=== PATIENT | female | born 1940 | race Caucasian/White ===

== ENCOUNTER 2021-04-26 16:00 | Inpatient (IN) | payer MEDICARE, OTHER ==
[~2021-04-26] VITALS: Ht 147.3 cm; Wt 39.9 kg
[~2021-04-26 16:00] MED LIST: ALEN70TA80 PO; ATEN100T PO; ATOR40TA; FURO20TA4 PO; ONCOUMADIN PO; Ondansetron Hcl/Pf IVP; SIME125C81 PO; SPIR50TA5 PO; WARF2TAB57 PO
--- NOTE | 2021-04-26 16:34 | NUR ---
patient came in to the er c/o "Abdominal Pain/nausea/less appetite xcouple days.+bloat/gases". On room air, breathing evenly and unlabored. Connected to the monitor and pulse ox. kept comfortable, will continue to monitor accordingly.
[2021-04-26 16:38] LABS: BILIRUBIN,URINE Negative (NEGATIVE); COLOR,URINE YELLOW (YELLOW); LEUKOCYTE ESTERASE ,URINE Negative (NEGATIVE); NITRITE, URINE Negative (NEGATIVE); PH,URINE 5.5 (5.0-8.0); PROTEIN,URINE Negative (NEGATIVE); UGLUCOSE Negative (NEGATIVE); UROBILINOGEN,URINE 0.2 EU/dL (0.2)
[2021-04-26 16:38] LABS: BASOPHILS # (AUTO) 0.1 K/uL (0.0-0.2); BASOPHILS % (AUTO) 1.5 % (0.0-2.0); EOSINOPHILS % (AUTO) 1.9 % (0.0-6.0); HEMATOCRIT 38 % (33-45); HEMOGLOBIN 12.6 g/dL (11.5-14.8); LYMPHOCYTES # (AUTO) 1.3 K/uL (0.8-4.8); LYMPHOCYTES % (AUTO) 21.7 % (20.0-44.0); MEAN CORPUSCULAR HGB CONC 34 g/dl (31.0-36.0); MEAN CORPUSCULAR VOLUME 97 fL (82-100); MONOCYTES # (AUTO) 0.4 K/uL (0.1-1.30); MONOCYTES % (AUTO) 6.3 % (2.0-12.0); NEUTROPHILS # (AUTO) 4.2 K/uL (1.8-8.9); NEUTROPHILS % (AUTO) 68.6 % (43.0-81.0); PLATELET COUNT (AUTO) 190 K/uL (150-450); RED BLOOD CELL COUNT(AUTO) 3.87 MIL/uL (4.0-5.2); WHITE BLOOD COUNT (AUTO) 6.1 K/uL (4.3-11.0)
[2021-04-26] MEDS ORDERED: ONDANSETRON HCL/PF 4 MG/2 ML VIAL ONE ×2 (16:48→18:03)
[2021-04-26 16:50] LABS: CARBON DIOXIDE 27 mmol/L (21-32); CHLORIDE 93 mmol/L (98-107); CREATININE 1.6 mg/dL (0.6-1.3); GLUCOSE 118 mg/dL (74-106); POTASSIUM 4.2 mmol/L (3.5-5.1); SODIUM SERUM 131 mmol/L (136-145); UREA NITROGEN, BLOOD 24 mg/dL (7-18)
[2021-04-26 16:53] LABS: BACTERIA,URINE Few /HPF (None Seen); SQUAMOUS EPITHELIAL CELL,UR 0-2 /HPF (None Seen); WBC,URINE 0-2 /HPF (0-3)
[2021-04-26] MEDS ORDERED: IV NS 0.9% 500 ML BAG IV ONE (17:00)
[2021-04-26] MEDS ORDERED: ONDANSETRON HCL/PF 4 MG/2 ML VIAL IVP ONE ×2 (17:00→18:00)
[2021-04-26 17:01] LABS: ALANINE AMINOTRANSFERASE 34 U/L (12-78); ALBUMIN 4.8 g/dL (3.4-5.0); ALKALINE PHOSPHATASE 104 U/L (46-116); ASPARTATE AMINOTRANSFERASE 38 U/L (15-37); BILIRUBIN,DIRECT 0.3 mg/dL (0.0-0.2); BILIRUBIN,TOTAL 1.4 mg/dL (0.2-1.0); LIPASE 443 U/L (73-393); TOTAL PROTEIN, SERUM 8.8 g/dL (6.4-8.2)
[2021-04-26] MEDS ORDERED: MORPHINE SULFATE INJ 2 MG/ML DISP.SYRIN IV ONE (18:00)
[2021-04-26] MEDS ORDERED: MORPHINE SULFATE INJ 4 MG/ML DISP.SYRIN ONE (18:03)
--- NOTE | 2021-04-26 18:11 | NUR ---
covid swab collected and sent to lab.
[2021-04-26] MEDS ORDERED: SPIR100T5 PO (18:21)
[2021-04-26] MEDS ORDERED: ATOR40TA PO (18:21)
[2021-04-26] MEDS ORDERED: POTA10CA43 PO (18:21)
[2021-04-26] MEDS ORDERED: ATEN100T PO (18:21)
[2021-04-26] MEDS ORDERED: BUME1TAB8 PO (18:21)
[2021-04-26] MEDS ORDERED: WARF-68 PO (18:21)
--- NOTE | 2021-04-26 19:34 | NUR ---
called [employer]. chemical instrumentation officer dr levine
--- NOTE | 2021-04-26 19:42 | NUR ---
HOSPITALIST SPEAKING WITH DR. RIZZO.
--- NOTE | 2021-04-26 19:44 | NUR ---
CALLED FOR TELE BED.
--- NOTE | 2021-04-26 20:50 | NUR ---
REPORT GIVEN TO CHARGE NURSE 3 [facility]
[2021-04-26] MEDS ORDERED: ACETAMINOPHEN 325 MG TABLET PO PRN (21:00)
[2021-04-26] MEDS ORDERED: MAG HYDROX/AL HYDROX/SIMETH 30 ML UDC PO PRN (21:00)
[2021-04-26] MEDS ORDERED: Z GUARD REMEDY 2 OZ OINT TP PRN (21:00)
[2021-04-26] MEDS ORDERED: ZOLPIDEM TARTRATE 5 MG TABLET PO PRN (21:00)
[2021-04-26 22:00] VITALS: BP 123/74
[2021-04-26 22:15] VITALS: BP 112/57
--- NOTE | 2021-04-26 22:15 | NUR ---
PETAL CUTTERCOOKIE BREAKER NOTE PT TRANSPORTED VIA GURNEY TO UNIT AT THIS TIME. PT ADMITTED TO TELE UNDER SUSANNAH MCGARRY MANAGER LINUX FOR ADMITTING DX OF INTRACTABLE PAIN/NAUSEA, ABNORMAL EKG. A/O X4, DJIBOUTIAN-SPEAKING. PT IS AMBULATORY WITH FWW. PT IS STABLE ON ROOM AIR. NO SOB OR S/S OF RESPIRATORY DISTRESS NOTED. PT NOTED WITH PACEMAKER. TELE MONITOR READING AFIB, V-PACING 67. PT HAS NO C/O PAIN OR DISCOMFORT AT THIS TIME. IV ACCESS IN RIGHT AC #18, INTACT AND PATENT. PT ORIENTED TO STAFF, ROOM, AND UNIT. SAFETY MEASURES MAINTAINED. IN LOWEST LOCKED POSITION, HOB ELEVATED, SIDE RAILS UP X2. CALL LIGHT AND TABLE WITHIN REACH. WILL CONTINUE TO MONITOR.
--- NOTE | 2021-04-26 22:15 | NUR ---
PATIENT TRANSFERRED UNDER ACLS
[2021-04-26] MEDS: MORPHINE SULFATE INJ 2 MG/ML DISP.SYRIN IV PRN (23:18)
--- NOTE | 2021-04-26 23:18 | NUR ---
RN PAIN PT C/O MIDDLE/UPPER ABDOMINAL PAIN, RATED 9/10 ON 0-10 PAIN SCALE. VSS STABLE. PER PT REQUEST, ADMINISTERED MORPHINE SULFATE 2 MG IV Q4H PRN FOR PAIN. WILL CONTINUE TO MONITOR.
[2021-04-27] VITALS: BP 112/57
[2021-04-27] MEDS: ONDANSETRON HCL/PF 4 MG/2 ML VIAL IVP PRN ×2 (01:05→20:34)
--- NOTE | 2021-04-27 01:05 | NUR ---
RN NOTE PT C/O NAUSEA. NO EMESIS NOTED. PER PT REQUEST, ADMINISTERED ZOFRAN 4 MG IVP Q6H FOR NAUSEA/VOMITING. WILL REASSESS PT IN 30 MINUTES.
[2021-04-27 04:00] VITALS: BP 105/52
--- NOTE | 2021-04-27 06:42 | NUR ---
HYDROMETALLURGICAL ENGINEER CLOSING NOTE PT IS AWAKE IN BED. A/O X4, CHINESE-SPEAKING. PT IS AMBULATORY WITH FWW. PT IS STABLE ON ROOM AIR. NO SOB OR S/S OF RESPIRATORY DISTRESS NOTED. PT NOTED WITH PACEMAKER. TELE MONITOR READING AFIB, V-PACING 68. PT HAS NO C/O PAIN OR DISCOMFORT AT THIS TIME. IV ACCESS IS INTACT, PATENT, AND FLUSHING WELL. ALL NEEDS HAVE BEEN MET. PAIN MANAGEMENT ADMINISTERED PER ORDER. SAFETY PRECAUTIONS MAINTAINED AT ALL TIMES. BED IN LOWEST LOCKED POSITION, HOB ELEVATED, SIDE RAILS UP X2. CALL LIGHT AND TABLE WITHIN REACH. WILL ENDORSE TO ONCOMING NURSE FOR CHRISTIANO.
[2021-04-27 07:18] LABS: BASOPHILS # (AUTO) 0.1 K/uL (0.0-0.2); BASOPHILS % (AUTO) 0.8 % (0.0-2.0); EOSINOPHILS % (AUTO) 2.8 % (0.0-6.0); HEMATOCRIT 35 % (33-45); HEMOGLOBIN 11.9 g/dL (11.5-14.8); LYMPHOCYTES # (AUTO) 0.9 K/uL (0.8-4.8); LYMPHOCYTES % (AUTO) 14.3 % (20.0-44.0); MEAN CORPUSCULAR HGB CONC 34 g/dl (31.0-36.0); MEAN CORPUSCULAR VOLUME 97 fL (82-100); MONOCYTES # (AUTO) 0.5 K/uL (0.1-1.30); MONOCYTES % (AUTO) 7.9 % (2.0-12.0); NEUTROPHILS # (AUTO) 4.6 K/uL (1.8-8.9); NEUTROPHILS % (AUTO) 74.2 % (43.0-81.0); PLATELET COUNT (AUTO) 157 K/uL (150-450); WHITE BLOOD COUNT (AUTO) 6.2 K/uL (4.3-11.0)
[2021-04-27 07:46] LABS: CALCIUM, SERUM 9.4 mg/dL (8.5-10.1); CARBON DIOXIDE 32 mmol/L (21-32); CHLORIDE 102 mmol/L (98-107); CHOLESTEROL 115 mg/dL (<200); GLUCOSE 106 mg/dL (74-106); HDL CHOLESTEROL 51 mg/dL (40-60); LDL 51 mg/dL (0-99); MAGNESIUM 2.2 mg/dL (1.8-2.4); POTASSIUM 4.2 mmol/L (3.5-5.1); SODIUM SERUM 139 mmol/L (136-145); TRIGLYCERIDES 53 mg/dL (30-150); UREA NITROGEN, BLOOD 26 mg/dL (7-18)
--- NOTE | 2021-04-27 07:55 | NUR ---
TELE/RN OPENING NOTES RECEIVED PATIENT ON BED AWAKE, ALERT AND ORIENTED X3. PATIENT IN ROOM AIR SATURATING WELL. PATIENT IN NO APPARENT RESPIRATORY DISTRESS NOTED. NO COMPLAINED OF PAIN NOTED AT THIS TIME. TELE MONITOR READING V PACING 60 BPM. WILL CONTINUE TO MONITOR.
[2021-04-27] MEDS: PANTOPRAZOLE 40 MG TABLET.DR PO SCH (08:34)
[2021-04-27] MEDS: ASPIRIN 81 MG TAB.CHEW PO SCH (08:51)
[2021-04-27] MEDS: ATENOLOL 50 MG TABLET PO SCH (08:52)
[2021-04-27] MEDS: SPIRONOLACTONE 25 MG TABLET PO SCH (08:52)
[2021-04-27] MEDS ORDERED: SPIRONOLACTONE 50 MG TABLET PO SCH (09:00)
[2021-04-27 09:02] VITALS: BP 116/54
[2021-04-27 09:43] LABS: CREATININE 1.8 mg/dL (0.6-1.3)
[2021-04-27 10:41] LABS: LIPASE 3497 U/L (73-393)
[2021-04-27] MEDS ORDERED: IV LR 1000 ML 1,000 ML IV ONE (11:30)
[2021-04-27 12:00] VITALS: BP 116/56
[2021-04-27 12:17] LABS: C-REACTIVE PROTEIN < 0.2 mg/dL (0.0-0.9)
[2021-04-27 16:10] VITALS: BP 100/50
[2021-04-27] MEDS: WARFARIN SODIUM 2 MG TABLET PO SCH (16:20)
--- NOTE | 2021-04-27 18:59 | NUR ---
TELE/RN OPENING NOTES PATIENT IS ON BED ALERT AND ORIENTED X 3-4. PATIENT IN ROOM AIR SAO2 96% SATURATING WELL. PATIENT IN NO APPARENT RESPIRATORY DISTRESS NOTED. NO COMPLAINED OF PAIN NOTED AT THIS TIME. SEEN AND EXAMINED BY MD WITH ORDERS MADE AND CARRIED OUT. ALL DUE MEDICATIONS WAS GIVEN. IV ACCESS AT RIGHT AC # 18g PATENT AND INTACT. TELE MONITOR READING SINUS RHYTHM WITH V PACING 71BPM. SAFETY PRECAUTIONS WAS IN PLACED. BED IN LOWEST POSITION AND LOCKED. SIDE RAILS UP X2. WILL ENDORSED TO ASSOCIATE SOFTWARE APPLICATION ENGINEER FOR CHRISTIANO. Addendum: 04/27/21 at 1902 by CHRISTINE SAAB RN ERROR
--- NOTE | 2021-04-27 19:02 | NUR ---
TELE/RN CLOSING NOTES PATIENT IS ON BED ALERT AND ORIENTED X 3-4. PATIENT IN ROOM AIR SAO2 96% SATURATING WELL. PATIENT IN NO APPARENT RESPIRATORY DISTRESS NOTED. NO COMPLAINED OF PAIN NOTED AT THIS TIME. SEEN AND EXAMINED BY MD WITH ORDERS MADE AND CARRIED OUT. ALL DUE MEDICATIONS WAS GIVEN. IV ACCESS AT RIGHT AC # 18g PATENT AND INTACT. SAFETY PRECAUTIONS WAS IN PLACED. BED IN LOWEST POSITION AND LOCKED. SIDE RAILS UP X2. WILL ENDORSED TO BULK COOLERS INSTALLER FOR CHRISTIANO.
--- NOTE | 2021-04-27 19:30 | NUR ---
JV BASEBALL COACH OPENING NOTES RECEIVED PATIENT IN BED, AWAKE, A&O X 4, SWISS SPEAKING. PATIENT IN ROOM AIR SATURATING WELL AT 98%. PATIENT IN NO APPARENT RESPIRATORY DISTRESS NOTED. NO COMPLAINTS OF PAIN AT THIS TIME. ON TELE MONITOR SHOWING V PACING HR AT 68. SALINE LOCK ON RAC G#18, PATENT AND FLUSHES WELL, NO REDNESS NOTED. SAFETY PRECAUTIONS WAS OBSERVED: BED IN LOWEST LOCKED POSITION, SIDE RAILS UP X2, CALL LIGHT WITHIN EASY REACH. WILL CONTINUE TO MONITOR PATIENT'S CURRENT STATUS
[2021-04-27 20:00] VITALS: BP_SYST 98; BP_DIAS 49; BP_DIAS 51
[2021-04-27] MEDS: MORPHINE SULFATE INJ 2 MG/ML DISP.SYRIN IV PRN (20:31)
--- NOTE | 2021-04-27 20:31 | NUR ---
PAIN MANAGEMENT PATIENT HAS C/O PAIN ON MEDIAL ABDOMEN RADIATING TO BACK WITH PAIN SCALE OF 8/10. DUE PRN MORPHINE GIVEN ORDERED. WILL CONTINUE TO MONITOR PATIENT'S PAIN STATUS.
[2021-04-27] MEDS: ATORVASTATIN 40 MG TABLET PO SCH (21:10)
[2021-04-28] VITALS: BP_SYST 111; BP_DIAS 45; BP_DIAS 51
[2021-04-28] MEDS: ONDANSETRON HCL/PF 4 MG/2 ML VIAL IVP PRN ×3 (03:03→19:55)
[2021-04-28] MEDS: MORPHINE SULFATE INJ 2 MG/ML DISP.SYRIN IV PRN ×2 (03:04→19:55)
--- NOTE | 2021-04-28 03:04 | NUR ---
PAIN MANAGEMENT PATIENT HAS C/O PAIN ON MEDIAL ABDOMEN RADIATING TO BACK WITH PAIN SCALE OF 8/10. DUE PRN MORPHINE GIVEN ORDERED. WILL CONTINUE TO MONITOR PATIENT'S PAIN STATUS
[2021-04-28 04:00] VITALS: BP 124/58
--- NOTE | 2021-04-28 06:38 | NUR ---
CAR DRIVER CLOSING NOTES PATIENT IN BED, AWAKE, A&O X 4, PATIENT IN ROOM AIR TOLERATING WELL. PATIENT IN NO APPARENT RESPIRATORY DISTRESS NOTED. NO COMPLAINTS OF PAIN AT THIS TIME. ON TELE MONITOR SHOWING V PACING HR AT 63. SALINE LOCK ON RAC G#18, PATENT AND FLUSHES WELL, NO REDNESS NOTED. SAFETY PRECAUTIONS WAS OBSERVED: BED IN LOWEST LOCKED POSITION, SIDE RAILS UP X2, CALL LIGHT WITHIN EASY REACH. ALL NEEDS ATTENDED AND MET. WILL ENDORSE TO MORNING NURSE FOR CHRISTIANO.
--- NOTE | 2021-04-28 07:43 | NUR ---
DIRECTOR NURSES' REGISTRY OPENING NOTES RECEIVED PATIENT IN BED, ASLEEP. PATIENT ON ROOM AIR; BREATHING EVEN AND UNLABORED, NO SOB PRESENT AT THIS TIME. TELE MONITOR WITH A CURRENT READING OF SR 75 BPM. NO S/S OF PAIN SUCH FACIAL GRIMACING, MOANING OR GUARDING NOTED. RAC G #18 IV ACCESS PRESENT AND INTACT, SL. SAFETY PRECAUTIONS IN PLACE; BED IN LOW POSITION AND LOCKED, RAILS UPX2, CALL LIGHT WITHIN REACH. WILL CONTINUE TO MONITOR PATIENT.
[2021-04-28] MEDS: ASPIRIN 81 MG TAB.CHEW PO SCH (08:16)
[2021-04-28] MEDS: SPIRONOLACTONE 25 MG TABLET PO SCH (08:17)
[2021-04-28] MEDS: PANTOPRAZOLE 40 MG TABLET.DR PO SCH (08:19)
[2021-04-28 08:25] VITALS: BP 113/62
[2021-04-28] MEDS ORDERED: MORPHINE SULFATE INJ 2 MG/ML DISP.SYRIN IV PRN ×2 (09:00→11:30)
[2021-04-28 09:06] LABS: CALCIUM, SERUM 9.4 mg/dL (8.5-10.1); CARBON DIOXIDE 27 mmol/L (21-32); CHLORIDE 101 mmol/L (98-107); CREATININE 1.6 mg/dL (0.6-1.3); GLUCOSE 137 mg/dL (74-106); POTASSIUM 4.4 mmol/L (3.5-5.1); SODIUM SERUM 136 mmol/L (136-145); UREA NITROGEN, BLOOD 25 mg/dL (7-18)
[2021-04-28 09:12] LABS: ALANINE AMINOTRANSFERASE 35 U/L (12-78); ALKALINE PHOSPHATASE 89 U/L (46-116); ASPARTATE AMINOTRANSFERASE 37 U/L (15-37); BILIRUBIN,TOTAL 1.2 mg/dL (0.2-1.0); LIPASE 480 U/L (73-393); TOTAL PROTEIN, SERUM 7.5 g/dL (6.4-8.2)
[2021-04-28] MEDS: IV LR 1000 ML 1,000 ML IV PRN ×2 (09:23→18:02)
[2021-04-28] MEDS: ATENOLOL 50 MG TABLET PO SCH (09:53)
--- NOTE | 2021-04-28 11:29 | NUR ---
BLIND EYELETTER NOTES PATIENT COMPLAINING OF PAIN 9/10 IN HER UPPER ABDOMEN; REQUESTING PRN PAIN MEDICATION. PRN MORPHINE IV ADMINISTERED. WILL REASSESS. PATIENT ALSO REQUESTED PRN ZOFRAN TO BE GIVEN WITH MORPHINE BECAUSE MORPHINE MAKES HER NAUSEATED.
[2021-04-28 12:08] VITALS: BP 116/62
[2021-04-28] MEDS: SIMETHICONE 80 MG TAB.CHEW PO PRN (15:59)
--- NOTE | 2021-04-28 16:01 | NUR ---
ASSOCIATE CHIEF NURSE NOTES PATIENT COMPLAINING OF GAS. PRN MYLICON CHEW TAB ADMINISTERED. WILL REASSESS.
[2021-04-28 16:19] VITALS: BP 118/58
[2021-04-28] MEDS: WARFARIN SODIUM 2 MG TABLET PO SCH (17:00)
--- NOTE | 2021-04-28 17:20 | NUR ---
PASSENGER ELEVATOR OPERATOR NOTES 1700 COUMADIN 2 MG HELD DUE TO INCREASED INR OF 3.59 AND PT OF 33.9 CHARGE NURSE NOTIFIED
--- NOTE | 2021-04-28 18:32 | NUR ---
MUD CLEANER OPERATOR CLOSING NOTES PATIENT REMAINS IN BED, AWAKE, A/O X4. PATIENT ON ROOM AIR; BREATHING EVEN AND UNLABORED, NO SOB PRESENT AT THIS TIME. TELE MONITOR WITH A CURRENT READING OF SR 64 BPM. PAIN TREATED WITH PRN PAIN MEDICATION. RAC G #18 IV ACCESS PRESENT AND INTACT INFUSING LR @ 125MLS/HR. ALL NEEDS ATTENDED DURING THE DAY. SAFETY PRECAUTIONS IN PLACE; BED IN LOW POSITION AND LOCKED, RAILS UPX2, CALL LIGHT WITHIN REACH. WILL ENDORSE NO EDUCATIONAL ADMINISTRATOR NURSE.
--- NOTE | 2021-04-28 19:55 | NUR ---
UPTWIST SPINNER OPENING NOTE PATIENT A/OX3; ABLE TO MAKE NEEDS KNOWN ON ROOM AIR TOLERATING WELL WITH NO SOB. EXTERNAL HEALTH SCIENCE SPECIALIST READS NSR AT 68. RAC #18G LR @ 125 HR/ML; PATENT AND INTACT. PT C/O 06/20 ABDOMINAL PAIN AND NAUSEA. ADMINISTERED MORPHINE AND ZOFRAN ORDERED. WILL CONTINUE TO REASSESS FOR PAIN/ N/V IN 30 MINUTES. SAFETY MEASURES IN PLACE: BED IN LOWEST LOCKED POSITION, SIDE RAILS UPX2, CALL LIGHT WITHIN EASY REACH. PATIENT IN STABLE CONDITION. WILL CONTINUE PLAN OF CARE.
[2021-04-28 20:00] VITALS: BP 137/49
[2021-04-28] MEDS: ATORVASTATIN 40 MG TABLET PO SCH (22:05)
[2021-04-29] VITALS: BP 108/45
[2021-04-29] MEDS: MORPHINE SULFATE INJ 2 MG/ML DISP.SYRIN IV PRN ×3 (01:48→20:36)
[2021-04-29] MEDS: IV LR 1000 ML 1,000 ML IV PRN ×2 (01:52→17:56)
[2021-04-29] MEDS: ONDANSETRON HCL/PF 4 MG/2 ML VIAL IVP PRN ×3 (01:58→20:36)
--- NOTE | 2021-04-29 01:58 | NUR ---
PERMANENT WAVER NOTE - PAIN / NAUSEA PT C/O 06/20 ABDOMINAL PAIN AND NAUSEA. ADMINISTERED MORPHINE AND ZOFRAN ORDERED. WILL CONTINUE TO REASSESS FOR PAIN/ N/V IN 30 MINUTES.
[2021-04-29 04:00] VITALS: BP 118/49
[2021-04-29 06:36] LABS: ALBUMIN 3.2 g/dL (3.4-5.0); BILIRUBIN,TOTAL 1.2 mg/dL (0.2-1.0); CALCIUM, SERUM 8.9 mg/dL (8.5-10.1); CREATININE 1.3 mg/dL (0.6-1.3); POTASSIUM 4.3 mmol/L (3.5-5.1); TOTAL PROTEIN, SERUM 6.4 g/dL (6.4-8.2)
--- NOTE | 2021-04-29 06:53 | NUR ---
FOREST MANAGEMENT PROFESSOR CLOSING NOTE PATIENT A/OX4; ABLE TO MAKE NEEDS KNOWN ON ROOM AIR TOLERATING WELL WITH NO SOB. EXTERNAL CHEESE WEIGHER READS NSR AT 63. RAC #18G LR @ 125 HR/ML; PATENT AND INTACT. SAFETY MEASURES IN PLACE: BED IN LOWEST LOCKED POSITION, SIDE RAILS UPX2, CALL LIGHT WITHIN EASY REACH. PATIENT IN STABLE CONDITION, ALL NEEDS MET. WILL ENDORSE PLAN OF CARE TO ONCOMING MORNING RN.
[2021-04-29 08:00] VITALS: BP 114/57
[2021-04-29] MEDS: SPIRONOLACTONE 25 MG TABLET PO SCH (09:00)
[2021-04-29] MEDS: ATENOLOL 50 MG TABLET PO SCH (09:00)
[2021-04-29] MEDS: PANTOPRAZOLE 40 MG TABLET.DR PO SCH (09:38)
[2021-04-29] MEDS: ASPIRIN 81 MG TAB.CHEW PO SCH (09:38)
--- NOTE | 2021-04-29 11:30 | NUR ---
IV LEAKING,REMOVED AND SEVERAL ATTEMPTS AT RESTART.NOW WITH #[address] FOREARM.
[2021-04-29 16:00] VITALS: BP 134/66
[2021-04-29] MEDS: WARFARIN SODIUM 2 MG TABLET PO SCH (17:00)
--- NOTE | 2021-04-29 17:45 | NUR ---
COUMADIN HELD ELEVATED INR.
--- NOTE | 2021-04-29 19:51 | NUR ---
CONVERTER SUPERVISOR OPENING NOTE PATIENT A/OX3; ABLE TO MAKE NEEDS KNOWN ON ROOM AIR TOLERATING WELL WITH NO SOB. EXTERNAL DISTRIBUTION COORDINATOR READS NSR AT 68. LFA #22G LR @ 125 HR/ML; PATENT AND INTACT. SAFETY MEASURES IN PLACE: BED IN LOWEST LOCKED POSITION, SIDE RAILS UPX2, CALL LIGHT WITHIN EASY REACH. PATIENT IN STABLE CONDITION. WILL CONTINUE PLAN OF CARE.
[2021-04-29 20:29] VITALS: BP 129/75
--- NOTE | 2021-04-29 20:36 | NUR ---
MS RN NOTE - PAIN / NAUSEA PT C/O 06/20 ABDOMINAL PAIN AND NAUSEA. ADMINISTERED MORPHINE AND ZOFRAN ORDERED. WILL CONTINUE TO REASSESS FOR PAIN/ N/V IN 30 MINUTES
[2021-04-29] MEDS: ATORVASTATIN 40 MG TABLET PO SCH (21:35)
--- NOTE | 2021-04-29 23:23 | NUR ---
MS RN NOTE - NAUSEA PT C/O NAUSEA AND GAS. ADMINISTERED MAALOX ORDERED. WILL CONTINUE TO REASSESS FOR N/V IN 30 MINUTES
[2021-04-30] MEDS: IV LR 1000 ML 1,000 ML IV PRN (02:47)
[2021-04-30] MEDS: MORPHINE SULFATE INJ 2 MG/ML DISP.SYRIN IV PRN ×2 (02:55→10:22)
[2021-04-30] MEDS: ONDANSETRON HCL/PF 4 MG/2 ML VIAL IVP PRN ×2 (02:55→10:14)
--- NOTE | 2021-04-30 02:55 | NUR ---
MS RN NOTE - PAIN / NAUSEA PT C/O 07/20 ABDOMINAL PAIN AND NAUSEA. ADMINISTERED MORPHINE AND ZOFRAN ORDERED. WILL CONTINUE TO REASSESS FOR PAIN/ N/V IN 30 MINUTES
[2021-04-30] MEDS: SIMETHICONE 80 MG TAB.CHEW PO PRN (05:52)
[2021-04-30 06:32] LABS: BASOPHILS % (AUTO) 0.7 % (0.0-2.0); EOSINOPHILS % (AUTO) 1.8 % (0.0-6.0); HEMATOCRIT 30 % (33-45); HEMOGLOBIN 10.1 g/dL (11.5-14.8); LYMPHOCYTES # (AUTO) 0.6 K/uL (0.8-4.8); LYMPHOCYTES % (AUTO) 8.8 % (20.0-44.0); MEAN CORPUSCULAR HGB CONC 34 g/dl (31.0-36.0); MEAN CORPUSCULAR VOLUME 99 fL (82-100); MONOCYTES # (AUTO) 0.5 K/uL (0.1-1.30); MONOCYTES % (AUTO) 7.5 % (2.0-12.0); NEUTROPHILS # (AUTO) 5.3 K/uL (1.8-8.9); NEUTROPHILS % (AUTO) 81.2 % (43.0-81.0); PLATELET COUNT (AUTO) 103 K/uL (150-450); WHITE BLOOD COUNT (AUTO) 6.5 K/uL (4.3-11.0)
--- NOTE | 2021-04-30 06:54 | NUR ---
MS RN CLOSING NOTE PATIENT A/OX4; ABLE TO MAKE NEEDS KNOWN ON ROOM AIR TOLERATING WELL WITH NO SOB. LFA #22G LR @ 125 HR/ML; PATENT AND INTACT. SAFETY MEASURES IN PLACE: BED IN LOWEST LOCKED POSITION, SIDE RAILS UPX2, CALL LIGHT WITHIN EASY REACH. PATIENT IN STABLE CONDITION. WILL ENDORSE PLAN OF CARE TO ONCOMING MORNING RN
[2021-04-30 07:32] LABS: BILIRUBIN,DIRECT 0.3 mg/dL (0.0-0.2); BILIRUBIN,TOTAL 1.4 mg/dL (0.2-1.0); CALCIUM, SERUM 8.8 mg/dL (8.5-10.1); CREATININE 1.1 mg/dL (0.6-1.3); MAGNESIUM 1.8 mg/dL (1.8-2.4); POTASSIUM 4.3 mmol/L (3.5-5.1); TOTAL PROTEIN, SERUM 6.3 g/dL (6.4-8.2)
[2021-04-30 08:00] VITALS: BP 131/44
[2021-04-30] MEDS: SPIRONOLACTONE 25 MG TABLET PO SCH (09:15)
[2021-04-30] MEDS: PANTOPRAZOLE 40 MG TABLET.DR PO SCH (09:15)
[2021-04-30] MEDS: ASPIRIN 81 MG TAB.CHEW PO SCH (09:15)
[2021-04-30] MEDS: ATENOLOL 50 MG TABLET PO SCH (09:16)
[2021-04-30] MEDS ORDERED: NA PHOS,M-B/NA PHOS,DI-BA 1 EA ENEMA RC ONE ×2 (11:30→14:00)
[2021-04-30] MEDS ORDERED: MAGNESIUM HYDROXIDE 30 ML UDC PO ONE ×2 (11:30→14:00)
--- NOTE | 2021-04-30 11:30 | NUR ---
GIVEN MORPHINE AND ZOFRAN FOR PAIN AND NAUSEA.
--- NOTE | 2021-04-30 12:30 | NUR ---
DR. BURGESS IN AND DC ORDER GIVEN.
--- NOTE | 2021-04-30 13:00 | NUR ---
TEXTING DR. BURGESS REGARDING WRETCHING AND BRINGING UP LARGE AMT. OF MUCUS.
--- NOTE | 2021-04-30 15:30 | NUR ---
DR PRICE IN AND CALLING DR. BURGESS REGARDING PT. STATUS.
--- NOTE | 2021-04-30 15:30 | NUR ---
GIVEN FLEETS ENEMA AND MOM AFTER RECEIPT OF ORDER FROM DR. BURGESS.HAD HUGE BM.
[2021-04-30 16:00] VITALS: BP 154/90
[2021-04-30] MEDS ORDERED: WARFARIN SODIUM 2 MG TABLET PO SCH (17:00)
--- NOTE | 2021-04-30 17:00 | NUR ---
REPORT CALLED TO FACILITY.
--- NOTE | 2021-04-30 17:35 | NUR ---
REPORT TO DRIVERS,ALL PAPERS SIGNED.HEP LOCK OUT.TAKEN TO FACILITY VIA AMBULANCE.
== END 2021-04-30 17:56 | DRG 438 ==
LOC: ER 16:03 → MERGE 20:42 → TELE 20:42 → MED 04-29 09:50
PROVIDERS: ADMIT Nurse Practitioner Family; ATTEND Internal Medicine
DX: K85.90 Acute pancreatitis without necrosis or infection, unspecified (principal); N17.0 Acute kidney failure with tubular necrosis; I50.20 Unspecified systolic (congestive) heart failure; E87.1 Hypo-osmolality and hyponatremia; I13.0 Hypertensive heart and chronic kidney disease with heart failure and stage 1 through stage 4 chronic kidney disease, or unspecified chronic kidney disease; K55.1 Chronic vascular disorders of intestine; K86.1 Other chronic pancreatitis; Z20.822 Contact with and (suspected) exposure to COVID-19; E86.9 Volume depletion, unspecified; N18.9 Chronic kidney disease, unspecified; M11.29 Other chondrocalcinosis, multiple sites; J84.10 Pulmonary fibrosis, unspecified; D49.0 Neoplasm of unspecified behavior of digestive system; I25.10 Atherosclerotic heart disease of native coronary artery without angina pectoris; K74.60 Unspecified cirrhosis of liver; Z90.49 Acquired absence of other specified parts of digestive tract; N28.1 Cyst of kidney, acquired; Z79.01 Long term (current) use of anticoagulants; Z95.2 Presence of prosthetic heart valve; Z95.0 Presence of cardiac pacemaker; Z90.710 Acquired absence of both cervix and uterus; B19.20 Unspecified viral hepatitis C without hepatic coma
CPT/HCPCS: 36415; 71045-TC; 76700-TC; 80048-TC; 80053-TC; 80061-TC; 80076-TC; 81001; 83690-TC; 83735-TC; 83880; 84100-TC; 84484-TC; 85025-TC; 85610-TC; 85730-TC; 86140-TC; 87081-TC; 93307-TC; C9803; G0378; J2270; J2405; J7040; J7120

== ENCOUNTER 2022-02-15 17:12 | Inpatient (IN) | payer MEDICARE, OTHER ==
[~2022-02-15] VITALS: Ht 147.3 cm; Wt 37.2 kg
[~2022-02-15 17:12] MED LIST changes: -ATOR40TA; +ATOR40TA PO; +BUME1TAB8 PO; +POTA10CA43 PO; +SPIR100T5 PO; +WARF-68 PO
--- NOTE | 2022-02-15 17:15 | NUR ---
BIB GRAND DAUGHTER C/O ABDOMINAL PAIN AND CONSTIPATION X 3 DAYS. PATIENT IS ATTACHED TO BUTTON BUTTONHOLE MARKER. PLACED COMFORTABLY IN BED. VITALS CHECKED AND WILL CONTINUE TO MONITOR
[2022-02-15] MEDS ORDERED: WARF-68 PO (17:24)
--- NOTE | 2022-02-15 17:30 | NUR ---
IV CANNULA G18 INSERTED ON RIGHT AC. BLOOD DRAWN AND SENT TO LAB
--- NOTE | 2022-02-15 17:41 | NUR ---
EKG DONE. STRIP ATTACHED TO CHART
--- NOTE | 2022-02-15 17:47 | NUR ---
COVID SWAB DONE AND SENT TO LAB
[2022-02-15 17:56] LABS: BASOPHILS # (AUTO) 0.1 K/uL (0.0-0.2); BASOPHILS % (AUTO) 0.7 % (0.0-2.0); EOSINOPHILS % (AUTO) 2.2 % (0.0-6.0); HEMATOCRIT 36 % (33-45); HEMOGLOBIN 12.4 g/dL (11.5-14.8); LYMPHOCYTES # (AUTO) 1.1 K/uL (0.8-4.8); MEAN CORPUSCULAR HGB CONC 34 g/dl (31.0-36.0); MEAN CORPUSCULAR VOLUME 95 fL (82-100); MONOCYTES # (AUTO) 0.9 K/uL (0.1-1.30); MONOCYTES % (AUTO) 7.5 % (2.0-12.0); NEUTROPHILS # (AUTO) 9.9 K/uL (1.8-8.9); NEUTROPHILS % (AUTO) 80.6 % (43.0-81.0); PLATELET COUNT (AUTO) 179 K/uL (150-450); RED BLOOD CELL COUNT(AUTO) 3.86 MIL/uL (4.0-5.2); WHITE BLOOD COUNT (AUTO) 12.3 K/uL (4.3-11.0)
--- NOTE | 2022-02-15 18:04 | NUR ---
PATIENT BROUGHT TO CT DEPT
[2022-02-15 18:15] LABS: CALCIUM, SERUM 9.2 mg/dL (8.5-10.1); CARBON DIOXIDE 26 mmol/L (21-32); CHLORIDE 95 mmol/L (98-107); CREATININE 1.8 mg/dL (0.6-1.3); GLUCOSE 111 mg/dL (74-106); POTASSIUM 4.8 mmol/L (3.5-5.1); SODIUM SERUM 128 mmol/L (136-145); UREA NITROGEN, BLOOD 32 mg/dL (7-18)
[2022-02-15 18:22] LABS: ALANINE AMINOTRANSFERASE 44 U/L (12-78); ALBUMIN 4.3 g/dL (3.4-5.0); ALKALINE PHOSPHATASE 100 U/L (46-116); ASPARTATE AMINOTRANSFERASE 50 U/L (15-37); BILIRUBIN,DIRECT 0.4 mg/dL (0.0-0.2); BILIRUBIN,TOTAL 1.6 mg/dL (0.2-1.0); LIPASE 756 U/L (73-393); TOTAL PROTEIN, SERUM 8.3 g/dL (6.4-8.2)
[2022-02-15] MEDS ORDERED: ACETAMINOPHEN 325 MG TABLET PO PRN (19:00)
[2022-02-15] MEDS ORDERED: SIMETHICONE 80 MG TAB.CHEW PO ONE (19:00)
[2022-02-15] MEDS ORDERED: ASPIRIN 81 MG TAB.CHEW PO ONE (19:00)
[2022-02-15] MEDS ORDERED: ONDANSETRON HCL/PF 4 MG/2 ML VIAL IVP PRN (19:00)
[2022-02-15] MEDS ORDERED: ASPIRIN 81 MG TAB.CHEW ONE ×2 (19:08)
--- NOTE | 2022-02-15 19:09 | NUR ---
ASPIRIN 81MG 2 TABS GIVEN PO
--- NOTE | 2022-02-15 20:13 | NUR ---
Sissy valverde in [facility] - 02/15/22 at 2014 by DOLLY BED 312-2
--- NOTE | 2022-02-15 20:14 | NUR ---
NEW BED 312-1
[2022-02-15] MEDS ORDERED: SIMETHICONE 80 MG TAB.CHEW ONE (20:57)
--- NOTE | 2022-02-15 21:00 | NUR ---
Sissy valverde in ED - 02/15/22 at 2129 by TRISTON REPORT GIVEN TO ANA MARIA LAGUNAS. PATIENT WILL BE TRANSFERRING TO 312-2.
--- NOTE | 2022-02-15 21:20 | NUR ---
Sissy valverde in [facility] - 02/15/22 at 2129 by RTISTON TRANSFERRED PATIENT TO ROOM
--- NOTE | 2022-02-15 21:56 | NUR ---
REPORT GIVEN TO ANA MARIA QUESADA
[2022-02-15 22:13] VITALS: BP 97/53
--- NOTE | 2022-02-15 22:19 | NUR ---
PT TRANSFERRED TO 3W 312 VIA ACLS PROTOCOL . VSS . ALL BELONGINGS WITH PT.
[2022-02-15 22:23] VITALS: BP 97/53
--- NOTE | 2022-02-15 22:23 | NUR ---
TILT WALL SUPERVISORINTERNATIONAL TRADE COMPLIANCE MANAGER NOTE PT TRANSPORTED VIA GURNEY TO UNIT AT THIS TIME. PT FROM HOME ADMITTED TO TELE FROM ER UNDER VP CUSTOMER SERVICE GEOFF FOR ADMITTING DX OF RULE OUT ACS. A/O X4 AND ABLE TO MAKE NEEDS KNOWN. PT STABLE ON ROOM AIR. NO SOB OR S/S OF RESPIRATORY DISTRESS. BREATHING EVEN AND UNLABORED. ON EXTERNAL HARNESS RACING HANDICAPPER READING V PACING 60BPM. SKIN IS INTACT. IV ACCESS RAC 18 GAUGE RUNNING NS @ 60 ML/HR. ORIENTED TO UNIT, STAFF, AND ROOM. ALL BELONGINGS ACCOUNTED FOR AND SIGNED PT BELONGINGS LIST. SAFETY PRECAUTIONS IN PLACE. BED IN LOWEST LOCKED POSITION, HOB ELEVATED, SIDE RAILS UP X3, AND CALL LIGHT AND TABLE WITHIN REACH. ALL NEEDS MET AT THIS TIME.
[2022-02-15] MEDS: IV NS 0.9% 1,000 ML IV PRN (22:26)
[2022-02-15] MEDS: PANTOPRAZOLE 40 MG VIAL IV SCH (22:26)
[2022-02-16] VITALS: BP 91/54
[2022-02-16 05:00] VITALS: BP 94/44
--- NOTE | 2022-02-16 06:53 | NUR ---
BODY CLEANER CLOSING NOTE PT AWAKE IN BED. A/O X4 AND ABLE TO MAKE NEEDS KNOWN. PT STABLE ON ROOM AIR. NO SOB OR S/S OF RESPIRATORY DISTRESS. BREATHING EVEN AND UNLABORED. ON EXTERNAL BANKING ATTORNEY READING V PACING 62BPM. IV ACCESS RAC 18 GAUGE RUNNING NS @ 60 ML/HR. ALL DUE MEDS GIVEN ORDERED. SAFETY PRECAUTIONS IN PLACE AT ALL TIMES. BED IN LOWEST LOCKED POSITION, HOB ELEVATED, SIDE RAILS UP X3, AND CALL LIGHT AND TABLE WITHIN REACH. ALL NEEDS MET AT THIS TIME AND WILL ENDORSE TO ONCOMING SHIFT FOR CHRISTIANO.
[2022-02-16 07:18] LABS: CHOLESTEROL 100 mg/dL (<200); HDL CHOLESTEROL 53 mg/dL (40-60); LDL 42 mg/dL (0-99); TRIGLYCERIDES 59 mg/dL (30-150)
[2022-02-16 07:23] LABS: CALCIUM, SERUM 8.7 mg/dL (8.5-10.1); CARBON DIOXIDE 25 mmol/L (21-32); CHLORIDE 101 mmol/L (98-107); CREATININE 1.8 mg/dL (0.6-1.3); GLUCOSE 88 mg/dL (74-106); LIPASE 388 U/L (73-393); MAGNESIUM 2.1 mg/dL (1.8-2.4); PHOSPHORUS 3.5 mg/dL (2.5-4.9); POTASSIUM 4.4 mmol/L (3.5-5.1); SODIUM SERUM 133 mmol/L (136-145); UREA NITROGEN, BLOOD 32 mg/dL (7-18)
--- NOTE | 2022-02-16 07:23 | NUR ---
CALL TAKER OPENING NOTE RECEIVED PT ASLEEP IN BED, EASILY AROUSE. A/O X4 AND ABLE TO MAKE NEEDS KNOWN. ON ROOM AIR, TOLERATING WELL. BREATHING EVEN AND UNLABORED. NOT IN ANY SIGN OF RESPIRATORY DISTRESS NOTED. ON TELE MONITOR WITH CURRENT READING OF V PACING, HR 66. IV ACCESS RAC G #18 RUNNING NS @ 60 ML/HR. SAFETY PRECAUTIONS IN PLACE AT ALL TIMES. BED IN LOWEST AND LOCKED POSITION, SIDE RAILS UP X3, AND CALL LIGHT WITHIN REACH. WILL CONTINUE TO MONITOR PT AND WITH PLAN OF CARE.
[2022-02-16 07:26] LABS: BASOPHILS % (AUTO) 0.7 % (0.0-2.0); EOSINOPHILS % (AUTO) 6.2 % (0.0-6.0); HEMATOCRIT 34 % (33-45); HEMOGLOBIN 11.4 g/dL (11.5-14.8); LYMPHOCYTES # (AUTO) 1.1 K/uL (0.8-4.8); LYMPHOCYTES % (AUTO) 18.5 % (20.0-44.0); MEAN CORPUSCULAR HGB CONC 34 g/dl (31.0-36.0); MEAN CORPUSCULAR VOLUME 96 fL (82-100); MONOCYTES # (AUTO) 0.5 K/uL (0.1-1.30); MONOCYTES % (AUTO) 7.7 % (2.0-12.0); NEUTROPHILS # (AUTO) 4.2 K/uL (1.8-8.9); NEUTROPHILS % (AUTO) 66.9 % (43.0-81.0); PLATELET COUNT (AUTO) 140 K/uL (150-450); RED BLOOD CELL COUNT(AUTO) 3.55 MIL/uL (4.0-5.2); WHITE BLOOD COUNT (AUTO) 6.2 K/uL (4.3-11.0)
[2022-02-16 08:00] VITALS: BP 83/52
[2022-02-16] MEDS: PANTOPRAZOLE 40 MG VIAL IV SCH (09:11)
[2022-02-16] MEDS: IV NS 0.9% 1,000 ML IV PRN (13:59)
[2022-02-16 16:00] VITALS: BP 144/73
[2022-02-16] MEDS: WARFARIN SODIUM 2 MG TABLET PO SCH (19:23)
--- NOTE | 2022-02-16 19:30 | NUR ---
MS RN OPENING NOTE RECEIVED PT AWAKE IN BED. A/O X4 AND ABLE TO MAKE NEEDS KNOWN. PT STABLE ON ROOM AIR. NO SOB OR S/S OF RESPIRATORY DISTRESS. BREATHING EVEN AND UNLABORED. ON EXTERNAL HOSPITAL ADMISSIONS CLERK READING V PACING 65 BPM. IV ACCESS RAC 18 GAUGE RUNNING NS @ 60 ML/HR. SAFETY PRECAUTIONS IN PLACE. BED IN LOWEST LOCKED POSITION, HOB ELEVATED, SIDE RAILS UP X3, AND CALL LIGHT AND TABLE WITHIN REACH. ALL NEEDS MET AT THIS TIME.
--- NOTE | 2022-02-16 19:35 | NUR ---
MS RN CLOSING NOTE PT ASLEEP IN BED, EASILY AROUSE. A/O X4 AND ABLE TO MAKE NEEDS KNOWN. ON ROOM AIR, TOLERATING WELL. BREATHING EVEN AND UNLABORED. NOT IN ANY SIGN OF RESPIRATORY DISTRESS NOTED. IV ACCESS RAC G #18 RUNNING NS @ 60 ML/HR. ALL NEEDS ATTENDED. SAFETY PRECAUTIONS IN PLACE AT ALL TIMES. BED IN LOWEST AND LOCKED POSITION, SIDE RAILS UP X3, AND CALL LIGHT WITHIN REACH. ENDORSED TO INTERNATIONAL STUDENT COUNSELOR NURSE FOR CONTINUITY OF CARE.
[2022-02-16 20:00] VITALS: BP 90/42
--- NOTE | 2022-02-17 01:25 | NUR ---
RN NOTE PT COMPLAINING OF ARTHRITIS PAIN IN RIGHT ARM. ADMINISTERED TYLENOL 650 MG PER PATIENT REQUEST FOR MILD PAIN ORDERED. MADE COMFORTABLE IN BED. ALL NEEDS MET AT THIS TIME.
[2022-02-17] MEDS: IV NS 0.9% 1,000 ML IV PRN (06:13)
[2022-02-17 06:30] LABS: BASOPHILS % (AUTO) 0.7 % (0.0-2.0); EOSINOPHILS % (AUTO) 6.5 % (0.0-6.0); HEMATOCRIT 31 % (33-45); HEMOGLOBIN 10.7 g/dL (11.5-14.8); LYMPHOCYTES # (AUTO) 0.7 K/uL (0.8-4.8); LYMPHOCYTES % (AUTO) 13.5 % (20.0-44.0); MEAN CORPUSCULAR HGB CONC 34 g/dl (31.0-36.0); MEAN CORPUSCULAR VOLUME 96 fL (82-100); MONOCYTES # (AUTO) 0.4 K/uL (0.1-1.30); MONOCYTES % (AUTO) 8.6 % (2.0-12.0); NEUTROPHILS # (AUTO) 3.6 K/uL (1.8-8.9); NEUTROPHILS % (AUTO) 70.7 % (43.0-81.0); PLATELET COUNT (AUTO) 121 K/uL (150-450); RED BLOOD CELL COUNT(AUTO) 3.27 MIL/uL (4.0-5.2); WHITE BLOOD COUNT (AUTO) 5.1 K/uL (4.3-11.0)
--- NOTE | 2022-02-17 06:38 | NUR ---
MS RN CLOSING NOTE PT AWAKE IN BED. A/O X4 AND ABLE TO MAKE NEEDS KNOWN. PT STABLE ON ROOM AIR. NO SOB OR S/S OF RESPIRATORY DISTRESS. BREATHING EVEN AND UNLABORED. IV ACCESS RAC 18 GAUGE RUNNING NS @ 60 ML/HR. ALL DUE MEDS GIVEN ORDERED. SAFETY PRECAUTIONS IN PLACE AT ALL TIMES. BED IN LOWEST LOCKED POSITION, HOB ELEVATED, SIDE RAILS UP X3, AND CALL LIGHT AND TABLE WITHIN REACH. ALL NEEDS MET AT THIS TIME AND WILL ENDORSE TO ONCOMING NURSE FOR CHRISTIANO.
[2022-02-17 06:48] LABS: CALCIUM, SERUM 8.4 mg/dL (8.5-10.1); CARBON DIOXIDE 23 mmol/L (21-32); CHLORIDE 105 mmol/L (98-107); CREATININE 1.6 mg/dL (0.6-1.3); GLUCOSE 78 mg/dL (74-106); LIPASE 410 U/L (73-393); MAGNESIUM 2.1 mg/dL (1.8-2.4); PHOSPHORUS 3.9 mg/dL (2.5-4.9); SODIUM SERUM 137 mmol/L (136-145); UREA NITROGEN, BLOOD 26 mg/dL (7-18)
--- NOTE | 2022-02-17 07:28 | NUR ---
MS RN OPENING NOTE RECEIVED PT AWAKE IN BED. A/O X4 AND ABLE TO MAKE NEEDS KNOWN. ON ROOM AIR, TOLERATING WELL. BREATHING EVEN AND UNLABORED. NOT IN ANY SIGN OF RESPIRATORY DISTRESS NOTED. IV ACCESS RAC G #18 RUNNING NS @ 60 ML/HR. SAFETY PRECAUTIONS IN PLACE AT ALL TIMES. BED IN LOWEST AND LOCKED POSITION, SIDE RAILS UP X3, AND CALL LIGHT WITHIN REACH. WILL CONTINUE OT MONITOR PT AND WITH PLAN OF CARE.
[2022-02-17 08:00] VITALS: BP 110/55
[2022-02-17] MEDS: PANTOPRAZOLE 40 MG VIAL IV SCH (08:32)
[2022-02-17] MEDS ORDERED: DOCUSATE SODIUM LIQ 100 MG/10 ML UDC XX ONE (12:30)
[2022-02-17] MEDS: FLUTICASONE PROPIONATE 16 GM BOTTLE NS SCH ×2 (12:54→17:09)
[2022-02-17 16:00] VITALS: BP 101/53
[2022-02-17] MEDS: WARFARIN SODIUM 2 MG TABLET PO SCH (17:10)
--- NOTE | 2022-02-17 19:31 | NUR ---
MS RN CLOSING NOTE PT AWAKE IN BED. A/O X4 AND ABLE TO MAKE NEEDS KNOWN. ON ROOM AIR, TOLERATING WELL. BREATHING EVEN AND UNLABORED. NOT IN ANY SIGN OF RESPIRATORY DISTRESS NOTED. IV ACCESS RAC G #18 RUNNING NS @ 60 ML/HR. ALL NEEDS ATTENDED. SAFETY PRECAUTIONS IN PLACE AT ALL TIMES. BED IN LOWEST AND LOCKED POSITION, SIDE RAILS UP X3, AND CALL LIGHT WITHIN REACH. ENDORSED TO HEALTH RECORDS TECHNOLOGY TEACHER NURSE FOR CONTINUITY OF CARE.
[2022-02-17 20:00] VITALS: BP 108/52
[2022-02-18 07:22] LABS: BASOPHILS % (AUTO) 0.8 % (0.0-2.0); EOSINOPHILS % (AUTO) 9.8 % (0.0-6.0); HEMATOCRIT 31 % (33-45); HEMOGLOBIN 10.6 g/dL (11.5-14.8); LYMPHOCYTES # (AUTO) 0.7 K/uL (0.8-4.8); LYMPHOCYTES % (AUTO) 15.8 % (20.0-44.0); MEAN CORPUSCULAR HGB CONC 34 g/dl (31.0-36.0); MEAN CORPUSCULAR VOLUME 95 fL (82-100); MONOCYTES # (AUTO) 0.4 K/uL (0.1-1.30); MONOCYTES % (AUTO) 8.4 % (2.0-12.0); NEUTROPHILS # (AUTO) 2.8 K/uL (1.8-8.9); NEUTROPHILS % (AUTO) 65.2 % (43.0-81.0); PLATELET COUNT (AUTO) 108 K/uL (150-450); RED BLOOD CELL COUNT(AUTO) 3.23 MIL/uL (4.0-5.2); WHITE BLOOD COUNT (AUTO) 4.4 K/uL (4.3-11.0)
[2022-02-18 07:25] LABS: ALANINE AMINOTRANSFERASE 31 U/L (12-78); ALBUMIN 3.3 g/dL (3.4-5.0); ALKALINE PHOSPHATASE 74 U/L (46-116); ASPARTATE AMINOTRANSFERASE 36 U/L (15-37); BILIRUBIN,DIRECT 0.3 mg/dL (0.0-0.2); BILIRUBIN,TOTAL 1.1 mg/dL (0.2-1.0); CALCIUM, SERUM 8.8 mg/dL (8.5-10.1); CARBON DIOXIDE 21 mmol/L (21-32); CHLORIDE 107 mmol/L (98-107); CREATININE 1.2 mg/dL (0.6-1.3); GLUCOSE 93 mg/dL (74-106); LIPASE 388 U/L (73-393); MAGNESIUM 1.8 mg/dL (1.8-2.4); POTASSIUM 3.8 mmol/L (3.5-5.1); SODIUM SERUM 138 mmol/L (136-145); TOTAL PROTEIN, SERUM 6.5 g/dL (6.4-8.2); UREA NITROGEN, BLOOD 14 mg/dL (7-18)
--- NOTE | 2022-02-18 07:30 | NUR ---
MS RN OPENING NOTES RECEIVED PATIENT AWAKE IN BED. DANISH SPEAKING, A/O X4 AND ABLE TO MAKE NEEDS KNOWN. ON RA WITH NO S/SX OF RESP DISTRESS NOTED. DENIES CHEST PAIN AT THIS TIME. RAC G#18 INTACT RUNNING NS @ 60 ML/HR. SAFETY PRECAUTIONS IN PLACE: BED IN LOWEST AND LOCKED POSITION, SIDE RAILS UP X2, CALL LIGHT WITHIN REACH. WILL CONTINUE PLAN OF CARE
--- NOTE | 2022-02-18 07:31 | NUR ---
MS RN NOTE REPORT GIVEN TO WESLEY FOR CONTINUITY OF CARE.
[2022-02-18 08:00] VITALS: BP 111/44
[2022-02-18] MEDS: PANTOPRAZOLE 40 MG VIAL IV SCH (08:11)
[2022-02-18] MEDS: FLUTICASONE PROPIONATE 16 GM BOTTLE NS SCH (08:11)
[2022-02-18] MEDS ORDERED: PANTOPRAZOLE 40 MG/PACK PACK PO SCH (09:00)
[2022-02-18 12:00] VITALS: BP 164/62
[2022-02-18] MEDS ORDERED: FLUT16SP16 NS (12:03)
--- NOTE | 2022-02-18 15:17 | NUR ---
HAND PLUG SHAPER NOTES PATIENT MEDICALLY STABLE FOR DISCHARGE. VSS. DISCHARGE INSTRUCTIONS PROVIDED TO PATIENT. PATIENT ABLE TO VERBALIZE UNDERSTANDING. EXIT CARE PACKET PROVIDED. ALL BELONGINGS ACCOUNTED FOR AND DOCUMENTS SIGNED. LINES REMOVED AND ID BAND REMOVED. PATIENT LEFT FACILITY IN PRIVATE CAR ACCOMPANIED BY FRIEND.
[2022-02-18] MEDS ORDERED: WARFARIN SODIUM 1 MG TABLET PO SCH (17:00)
[2022-02-19] MEDS ORDERED: PANTOPRAZOLE 40 MG/PACK PACK PO SCH (09:00)
[2022-02-22] MEDS ORDERED: WARFARIN SODIUM 2 MG TABLET PO SCH (17:00)
== END 2022-02-18 15:20 | disposition home health service (06) | DRG 438 ==
LOC: ER 17:14 → TELE 20:38 → MED 02-16 11:16
PROVIDERS: ADMIT Nurse Practitioner Acute Care; ATTEND Nurse Practitioner Family
DX: K85.90 Acute pancreatitis without necrosis or infection, unspecified (principal); N17.0 Acute kidney failure with tubular necrosis; E87.1 Hypo-osmolality and hyponatremia; K56.7 Ileus, unspecified; E44.0 Moderate protein-calorie malnutrition; I48.91 Unspecified atrial fibrillation; Z95.0 Presence of cardiac pacemaker; I11.0 Hypertensive heart disease with heart failure; I50.9 Heart failure, unspecified; Z79.01 Long term (current) use of anticoagulants; Z79.899 Other long term (current) drug therapy; M81.0 Age-related osteoporosis without current pathological fracture; Z95.2 Presence of prosthetic heart valve; K74.60 Unspecified cirrhosis of liver; E78.5 Hyperlipidemia, unspecified; E78.00 Pure hypercholesterolemia, unspecified; D72.829 Elevated white blood cell count, unspecified; E86.1 Hypovolemia; K59.00 Constipation, unspecified; E11.9 Type 2 diabetes mellitus without complications; H69.80 Other specified disorders of Eustachian tube, unspecified ear; H61.20 Impacted cerumen, unspecified ear; M79.601 Pain in right arm; K21.9 Gastro-esophageal reflux disease without esophagitis; K64.9 Unspecified hemorrhoids; R42 Dizziness and giddiness; Z20.822 Contact with and (suspected) exposure to COVID-19
CPT/HCPCS: 36415; 71045-TC; 74018; 76770-TC; 80048-TC; 80061-TC; 80076-TC; 83690-TC; 83735-TC; 83880; 84100-TC; 84484-TC; 85025-TC; 85378-TC; 85610-TC; 85730-TC; 87081-TC; 93307-TC; 97116-TC; 97530-TC; A4349; C9113; C9803; G0378; J7030

== ENCOUNTER 2022-04-27 10:37 | Inpatient (IN) | payer MEDICARE, OTHER ==
[~2022-04-27] VITALS: Ht 147.3 cm; Wt 38.8 kg
[~2022-04-27 10:37] MED LIST changes: -ALEN70TA80 PO; +FLUT16SP16 NS; -FURO20TA4 PO; -ONCOUMADIN PO; -Ondansetron Hcl/Pf IVP; -SIME125C81 PO; -SPIR50TA5 PO; -WARF2TAB57 PO
--- NOTE | 2022-04-27 10:49 | NUR ---
BIBS C/O HEADACHE, BODY PAIN X 1 WEEK, "BLEEDING" FROM THE MOUTH X 3 DAYS ON COUMADIN, CALLED PMD AND ADVISED TO GO TO ED. PT ATTACHED TO MONITOR, NO RESP DISTRESS NOTED. DR LOVELL AT BEDSIDE. AWIATING MD KONG.
--- NOTE | 2022-04-27 10:55 | NUR ---
IV ESTABLIHSED L AC 20G. LABS DRAWN AND COLLECTED AT BEDSIDE.
--- NOTE | 2022-04-27 11:02 | NUR ---
COVID ANTIGEN COLLECTED AND SENT TO LAB
--- NOTE | 2022-04-27 11:05 | NUR ---
PT UNALBLE TO PROVIDE URINE AT THIS TIME, PROVIDE WITH URINE SAMPLE CUP.
[2022-04-27 11:15] LABS: BASOPHILS # (AUTO) 0.1 K/uL (0.0-0.2); BASOPHILS % (AUTO) 1.5 % (0.0-2.0); HEMATOCRIT 35 % (33-45); HEMOGLOBIN 11.7 g/dL (11.5-14.8); LYMPHOCYTES # (AUTO) 1.1 K/uL (0.8-4.8); LYMPHOCYTES % (AUTO) 18.4 % (20.0-44.0); MEAN CORPUSCULAR HGB CONC 34 g/dl (31.0-36.0); MEAN CORPUSCULAR VOLUME 96 fL (82-100); MONOCYTES # (AUTO) 0.3 K/uL (0.1-1.30); MONOCYTES % (AUTO) 5.6 % (2.0-12.0); NEUTROPHILS # (AUTO) 3.8 K/uL (1.8-8.9); NEUTROPHILS % (AUTO) 62.5 % (43.0-81.0); PLATELET COUNT (AUTO) 177 K/uL (150-450); RED BLOOD CELL COUNT(AUTO) 3.59 MIL/uL (4.0-5.2); WHITE BLOOD COUNT (AUTO) 6.1 K/uL (4.3-11.0)
[2022-04-27 11:23] LABS: CALCIUM, SERUM 10.1 mg/dL (8.5-10.1); CARBON DIOXIDE 29 mmol/L (21-32); CHLORIDE 98 mmol/L (98-107); CREATININE 1.5 mg/dL (0.6-1.3); GLUCOSE 109 mg/dL (74-106); POTASSIUM 4.6 mmol/L (3.5-5.1); SODIUM SERUM 134 mmol/L (136-145); UREA NITROGEN, BLOOD 25 mg/dL (7-18)
[2022-04-27 11:29] LABS: ALANINE AMINOTRANSFERASE 34 U/L (12-78); ALBUMIN 4.5 g/dL (3.4-5.0); ALKALINE PHOSPHATASE 123 U/L (46-116); ASPARTATE AMINOTRANSFERASE 39 U/L (15-37); BILIRUBIN,DIRECT 0.4 mg/dL (0.0-0.2); BILIRUBIN,TOTAL 1.5 mg/dL (0.2-1.0); TOTAL PROTEIN, SERUM 8.6 g/dL (6.4-8.2)
--- NOTE | 2022-04-27 11:48 | NUR ---
PT TAKEN TO CT VIA NICOLE
[2022-04-27] MEDS ORDERED: ACET-868 PO (11:49)
[2022-04-27] MEDS ORDERED: FLUT16SP (11:49)
--- NOTE | 2022-04-27 12:00 | NUR ---
PT RETURNED FROM CT VIA [facility]
--- NOTE | 2022-04-27 13:37 | NUR ---
CALLED NURSING SUP REGARDING PT BED
[2022-04-27] MEDS ORDERED: MAG HYDROX/AL HYDROX/SIMETH 30 ML UDC PO PRN (14:30)
[2022-04-27] MEDS ORDERED: MORPHINE SULFATE INJ 2 MG/ML DISP.SYRIN IV PRN (14:30)
[2022-04-27] MEDS ORDERED: ONDANSETRON HCL/PF 4 MG/2 ML VIAL IVP PRN (14:30)
--- NOTE | 2022-04-27 15:45 | NUR ---
REPORT GIVEN TO PACHECO MUNOZ CHRISTIANO
--- NOTE | 2022-04-27 16:47 | NUR ---
PT TRANSPORTED TO WITH ACLS PROTOCOL IN PLACE, PT ABLE TO AMBULATE ON HER OWN WITH ASSISTANCE FROM HER PERSONAL WALKER.
[2022-04-27] MEDS ORDERED: Z GUARD REMEDY 4 OZ OINT TP PRN (17:00)
--- NOTE | 2022-04-27 17:15 | NUR ---
DOCUMENT PREPARER MICROFILMING NOTES RECEIVED PATIENT VIA NICOLE. PATIENT IS ALERT AND ORIENTED TIMES 4. HUNGARIAN SPEAKER. UNDERSTANDS LITTLE MAURITANIAN. NO PAIN NOTED. NO SOB NOTED. NO DISTRESS NOTED. ABLE TO MAKE NEEDS KNOWN. ON TELE MONITOR READING CONTROLLED AFIB , HR=76. IV ACCESS ON THE LAC #20 INTACT. PATIENT CAN AMBULATE WITH WALKER AND BATHROOM PRIVILEGED. ALL THE BELONGINGS ACCOUNTED AND SIGNED FOR. NO SOB NOTED. NO DISTRESS NOTED. NO DISCOMFORT NOTED. NOTED WITH PACE MAKER. OVERALL SKIN INTACT. ALL NEEDS ATTENDED. CALL LIGHT AND TABLE IN EASY REACH. BED LOCKED IN THE LOWEST POSITION. SIDE RAILS UP TIMES 2. ALL NEEDS ATTENDED. WILL ENDORSE FOR CHRISTIANO.
[2022-04-27] MEDS: ATORVASTATIN 40 MG TABLET PO SCH (17:40)
[2022-04-27 18:00] VITALS: BP 109/66
--- NOTE | 2022-04-27 19:30 | NUR ---
SPECIAL EDUCATION COORDINATOR OPENING NOTE RECEIVED PATIENT IN BED. A/OX4. NO S/S OF APPARENT DISTRESS IN ROOM AIR. DENIES PAIN NOR DISCOMFORT AT THIS TIME. TELE MONITOR READING A-FIB IN CONTROLLED RATE. Dell. AC #20G SALINE LOCK. RE-ORIENTED AND ENCOURAGED WITH THE USE OF CALL LIGHT. SAFETY IN PLACE. WILL CONTINUE WITH PLAN OF CARE FOR PATIENT.
[2022-04-27 20:00] VITALS: BP 96/43
[2022-04-27] MEDS ORDERED: MAGNESIUM HYDROXIDE 30 ML UDC PO PRN (22:00)
[2022-04-28] VITALS: BP 92/46
[2022-04-28 04:00] VITALS: BP 106/55
[2022-04-28 06:35] LABS: EOSINOPHILS % (AUTO) 18.5 % (0.0-6.0); HEMATOCRIT 30 % (33-45); HEMOGLOBIN 10.7 g/dL (11.5-14.8); LYMPHOCYTES # (AUTO) 1.1 K/uL (0.8-4.8); LYMPHOCYTES % (AUTO) 21.7 % (20.0-44.0); MEAN CORPUSCULAR HGB CONC 35 g/dl (31.0-36.0); MEAN CORPUSCULAR VOLUME 95 fL (82-100); MONOCYTES # (AUTO) 0.4 K/uL (0.1-1.30); MONOCYTES % (AUTO) 8.4 % (2.0-12.0); NEUTROPHILS # (AUTO) 2.5 K/uL (1.8-8.9); NEUTROPHILS % (AUTO) 50.4 % (43.0-81.0); PLATELET COUNT (AUTO) 150 K/uL (150-450); RED BLOOD CELL COUNT(AUTO) 3.18 MIL/uL (4.0-5.2); WHITE BLOOD COUNT (AUTO) 4.9 K/uL (4.3-11.0)
[2022-04-28 07:09] LABS: CALCIUM, SERUM 9.4 mg/dL (8.5-10.1); CARBON DIOXIDE 26 mmol/L (21-32); CHLORIDE 99 mmol/L (98-107); CREATININE 1.4 mg/dL (0.6-1.3); GLUCOSE 95 mg/dL (74-106); MAGNESIUM 2.3 mg/dL (1.8-2.4); PHOSPHORUS 4.3 mg/dL (2.5-4.9); POTASSIUM 3.9 mmol/L (3.5-5.1); SODIUM SERUM 135 mmol/L (136-145); UREA NITROGEN, BLOOD 27 mg/dL (7-18)
--- NOTE | 2022-04-28 07:27 | NUR ---
STUDENT SUCCESS COACH NOTE REPORT GIVEN TO ANA MARIA BLUNT FOR CONTINUITY OF CARE
[2022-04-28 08:00] VITALS: BP 116/56
[2022-04-28] MEDS: POTASSIUM CHLORIDE 10 MEQ TABLET.SA PO SCH (08:26)
[2022-04-28] MEDS: ATENOLOL 50 MG TABLET PO SCH (08:29)
[2022-04-28] MEDS: BUMETANIDE (1 MG) 1 MG TABLET PO SCH (08:31)
[2022-04-28] MEDS: SPIRONOLACTONE 25 MG TABLET PO SCH (08:31)
[2022-04-28] MEDS: FLUTICASONE PROPIONATE 16 GM BOTTLE NS SCH (09:56)
[2022-04-28 12:00] VITALS: BP 121/52
[2022-04-28 12:30] LABS: BILIRUBIN,URINE NEGATIVE (NEGATIVE); COLOR,URINE YELLOW (YELLOW); LEUKOCYTE ESTERASE ,URINE MODERATE (NEGATIVE); NITRITE, URINE NEGATIVE (NEGATIVE); PH,URINE 6.5 (5.0-8.0); PROTEIN,URINE NEGATIVE (NEGATIVE); UGLUCOSE 250 MG/DL mg/dL (NEGATIVE)
[2022-04-28 12:36] LABS: CREATININE, URINE 58.5 MG/DL (30.0-125.0)
[2022-04-28 13:00] LABS: BACTERIA,URINE Few /HPF (None Seen); SQUAMOUS EPITHELIAL CELL,UR Few /HPF (None Seen)
[2022-04-28 16:00] VITALS: BP 112/51
[2022-04-28] MEDS ORDERED: WARFARIN SODIUM 2 MG TABLET PO SCH (17:00)
[2022-04-28] MEDS: ATORVASTATIN 40 MG TABLET PO SCH (18:44)
--- NOTE | 2022-04-28 19:56 | NUR ---
PSYCHOLOGY TECHNICIAN OPENING NOTE RECEIVED PATIENT AMBULATING WITH FWW TO THE RESTROOM. NO S/S OF APPARENT DISTRESS IN ROOM AIR. DENIES PAIN NOR DISCOMFORT AT THIS TIME. NO FLUIDS RUNNING AT THIS TIME. RE-ORIENTED AND ENCOURAGED WITH THE USE OF CALL LIGHT. TELE MONITOR READING A-FIB WITH V PACING. SAFETY IN PLACE. WILL CONTINUE WITH PLAN OF CARE FOR PATIENT.
[2022-04-28 20:00] VITALS: BP 116/50
[2022-04-28] MEDS: ACETAMINOPHEN 325 MG TABLET PO PRN (23:07)
[2022-04-29] VITALS: BP_SYST 108; BP_DIAS 58; BP_DIAS 68
[2022-04-29 04:00] VITALS: BP 113/47
[2022-04-29 05:14] LABS: BASOPHILS # (AUTO) 0.1 K/uL (0.0-0.2); EOSINOPHILS % (AUTO) 18.7 % (0.0-6.0); HEMATOCRIT 31 % (33-45); HEMOGLOBIN 10.8 g/dL (11.5-14.8); LYMPHOCYTES # (AUTO) 1.2 K/uL (0.8-4.8); LYMPHOCYTES % (AUTO) 24.2 % (20.0-44.0); MEAN CORPUSCULAR HGB CONC 35 g/dl (31.0-36.0); MEAN CORPUSCULAR VOLUME 96 fL (82-100); MONOCYTES # (AUTO) 0.4 K/uL (0.1-1.30); NEUTROPHILS # (AUTO) 2.3 K/uL (1.8-8.9); NEUTROPHILS % (AUTO) 47.1 % (43.0-81.0); PLATELET COUNT (AUTO) 155 K/uL (150-450); RED BLOOD CELL COUNT(AUTO) 3.26 MIL/uL (4.0-5.2); WHITE BLOOD COUNT (AUTO) 4.9 K/uL (4.3-11.0)
[2022-04-29 05:23] LABS: CALCIUM, SERUM 9.4 mg/dL (8.5-10.1); CARBON DIOXIDE 28 mmol/L (21-32); CHLORIDE 98 mmol/L (98-107); CREATININE 1.7 mg/dL (0.6-1.3); GLUCOSE 101 mg/dL (74-106); POTASSIUM 4.5 mmol/L (3.5-5.1); SODIUM SERUM 134 mmol/L (136-145); UREA NITROGEN, BLOOD 27 mg/dL (7-18)
[2022-04-29] MEDS: ACETAMINOPHEN 325 MG TABLET PO PRN (07:06)
--- NOTE | 2022-04-29 07:32 | NUR ---
MS RN CLOSING NOTE NEEDS ATTENDED. REPORT GIVEN TO ANA MARIA BLUNT FOR CONTINUITY OF CARE.
[2022-04-29 08:00] VITALS: BP 100/41
[2022-04-29] MEDS ORDERED: IV 1/2NS 1000 ML 1,000 ML IV ONE (08:30)
[2022-04-29] MEDS: SPIRONOLACTONE 25 MG TABLET PO SCH (08:31)
[2022-04-29] MEDS: BUMETANIDE (1 MG) 1 MG TABLET PO SCH (08:31)
[2022-04-29] MEDS: ATENOLOL 50 MG TABLET PO SCH ×2 (08:37→08:50)
[2022-04-29] MEDS: FLUTICASONE PROPIONATE 16 GM BOTTLE NS SCH (08:46)
[2022-04-29] MEDS: POTASSIUM CHLORIDE 10 MEQ TABLET.SA PO SCH (09:03)
[2022-04-29 12:00] VITALS: BP 99/50
--- NOTE | 2022-04-29 15:58 | NUR ---
PRINT PRODUCTION ASSOCIATE OPENING NOTE RECEIVED PATIENT AMBULATING WITH FWW TO THE RESTROOM. NO S/S OF APPARENT DISTRESS IN ROOM AIR. DENIES PAIN NOR DISCOMFORT AT THIS TIME. NO FLUIDS RUNNING AT THIS TIME. RE-ORIENTED AND ENCOURAGED WITH THE USE OF CALL LIGHT. TELE MONITOR READING A-FIB WITH V PACING. SAFETY IN PLACE. WILL CONTINUE WITH PLAN OF CARE FOR PATIENT. Addendum: 04/29/22 at 1559 by CASPER SANCHEZ RN katelyn note [id number]
--- NOTE | 2022-04-29 15:59 | NUR ---
FABRICATOR ASSEMBLER METAL PRODUCTSLAB ASSISTANT NOTES: PT CONDITION STABLE, DC ORDER PER MD. TELE BOX RETRIEVED, IV ACCESS DC'D. BELONGINGS CHECKLIST, HOME MEDICATION AND DC PAPERS SIGNED BY PT. TEACHING DONE AT BEDSIDE, PT VERBALIZED UNDERSTANDING. ESCORTED TO LOBBY BY STAFF VIA WHEELCHAIR, WITH PT FAMILY.
[2022-05-03] MEDS ORDERED: WARFARIN SODIUM 2 MG TABLET PO SCH (17:00)
== END 2022-04-29 17:35 | disposition home or self-care (01) | DRG 205 ==
LOC: ER 10:49 → MED 15:56 → TELE 18:41
PROVIDERS: ADMIT Internal Medicine; ATTEND Internal Medicine
DX: M94.0 Chondrocostal junction syndrome [Tietze] (principal); N17.0 Acute kidney failure with tubular necrosis; I48.21 Permanent atrial fibrillation; R04.2 Hemoptysis; Z20.822 Contact with and (suspected) exposure to COVID-19; I48.91 Unspecified atrial fibrillation; N18.9 Chronic kidney disease, unspecified; I12.9 Hypertensive chronic kidney disease with stage 1 through stage 4 chronic kidney disease, or unspecified chronic kidney disease; M81.0 Age-related osteoporosis without current pathological fracture; E78.00 Pure hypercholesterolemia, unspecified; Z95.2 Presence of prosthetic heart valve; Z90.49 Acquired absence of other specified parts of digestive tract; Z98.891 History of uterine scar from previous surgery; E11.22 Type 2 diabetes mellitus with diabetic chronic kidney disease; D63.8 Anemia in other chronic diseases classified elsewhere; I27.20 Pulmonary hypertension, unspecified; Z79.899 Other long term (current) drug therapy; Z79.01 Long term (current) use of anticoagulants; K21.9 Gastro-esophageal reflux disease without esophagitis; E78.5 Hyperlipidemia, unspecified; R79.1 Abnormal coagulation profile; K05.10 Chronic gingivitis, plaque induced
CPT/HCPCS: 36415; 70450-TC; 71045-TC; 71250-TC; 80048-TC; 80076-TC; 81001; 82570-TC; 83605-TC; 83735-TC; 84100-TC; 84300-TC; 84484-TC; 85025-TC; 85610-TC; 85652-TC; 85730-TC; 86850-TC; 87040-TC; 87081-TC; 87086-TC; C9803; G0378; J3490

== ENCOUNTER 2023-05-26 20:29 | Inpatient (IN) | payer MEDICARE, OTHER ==
[~2023-05-26] VITALS: Ht 149.9 cm; Wt 40.8 kg
[~2023-05-26 20:29] MED LIST changes: +FLUT16SP; -FLUT16SP16 NS
[2023-05-26 21:54] LABS: BASOPHILS # (AUTO) 0.1 K/uL (0.0-0.2); BASOPHILS % (AUTO) 2.4 % (0.0-2.0); EOSINOPHILS # (AUTO) 0.8 K/uL (0.0-0.7); EOSINOPHILS % (AUTO) 14.9 % (0.0-6.0); HEMATOCRIT 34 % (33-45); HEMOGLOBIN 11.1 g/dL (11.5-14.8); LYMPHOCYTES # (AUTO) 0.7 K/uL (0.8-4.8); LYMPHOCYTES % (AUTO) 14.2 % (20.0-44.0); MEAN CORPUSCULAR HEMOGLOBIN 31 PG (26.0-33.0); MEAN CORPUSCULAR HGB CONC 33 g/dl (31.0-36.0); MEAN CORPUSCULAR VOLUME 95 fL (82-100); MONOCYTES # (AUTO) 0.4 K/uL (0.1-1.30); MONOCYTES % (AUTO) 7.8 % (2.0-12.0); NEUTROPHILS # (AUTO) 3.1 K/uL (1.8-8.9); NEUTROPHILS % (AUTO) 60.7 % (43.0-81.0); PLATELET COUNT (AUTO) 142 K/uL (150-450); RED BLOOD CELL COUNT(AUTO) 3.55 MIL/uL (4.0-5.2); RED CELL DISTRIBUTION WIDTH 13.8 % (11.5-15.0); WHITE BLOOD COUNT (AUTO) 5.1 K/uL (4.3-11.0)
[2023-05-26 22:07] LABS: PARTIAL THROMBOPLASTIN TIME 47.1 SEC (24.3-34.3); PROTHROMBIN TIME 42.4 SECS (9.2-11.1)
[2023-05-26 22:08] LABS: CALCIUM, SERUM 9.4 mg/dL (8.5-10.1); CARBON DIOXIDE 26 mmol/L (21-32); CHLORIDE 102 mmol/L (98-107); CREATININE 1.1 mg/dL (0.6-1.3); GLUCOSE 109 mg/dL (74-106); SODIUM SERUM 137 mmol/L (136-145); UREA NITROGEN, BLOOD 20 mg/dL (7-18)
[2023-05-26 22:09] LABS: INR 4.39 (0.91-1.10)
[2023-05-26 22:17] LABS: ALANINE AMINOTRANSFERASE 29 U/L (12-78); ALBUMIN 3.9 g/dL (3.4-5.0); ALKALINE PHOSPHATASE 153 U/L (46-116); ASPARTATE AMINOTRANSFERASE 43 U/L (15-37); BILIRUBIN,DIRECT 0.5 mg/dL (0.0-0.2); BILIRUBIN,TOTAL 1.4 mg/dL (0.2-1.0); NT-PRO BNP 1782 pg/mL (0-125); TOTAL PROTEIN, SERUM 7.7 g/dL (6.4-8.2)
[2023-05-27 00:16] LABS: APPEARANCE,URINE CLEAR (CLEAR); BILIRUBIN,URINE NEGATIVE (NEGATIVE); BLOOD, URINE 2+ Ery/uL (NEGATIVE); COLOR,URINE YELLOW (YELLOW); KETONES,URINE NEGATIVE (NEGATIVE); LEUKOCYTE ESTERASE ,URINE TRACE (NEGATIVE); NITRITE, URINE NEGATIVE (NEGATIVE); PROTEIN,URINE NEGATIVE (NEGATIVE); UGLUCOSE NEGATIVE (NEGATIVE); UROBILINOGEN,URINE 0.2 EU/dL (0.2)
[2023-05-27 00:32] LABS: ADD URINE CULTURE NO; BACTERIA,URINE None seen /HPF (None Seen)
[2023-05-27 01:00] VITALS: O2SAT 96
[2023-05-27 04:00] VITALS: BP 123/80; TEMP 98.1; O2SAT 94
[2023-05-27] MEDS ORDERED: ACETAMINOPHEN 325 MG TABLET PO PRN (06:00)
[2023-05-27] MEDS ORDERED: ZOLPIDEM TARTRATE 5 MG TABLET PO PRN (06:00)
[2023-05-27] MEDS ORDERED: Z GUARD REMEDY 4 OZ OINT TP PRN (06:00)
[2023-05-27] MEDS ORDERED: ONDANSETRON HCL/PF 4 MG/2 ML VIAL IVP PRN (06:00)
[2023-05-27] MEDS ORDERED: MORPHINE SULFATE INJ 2 MG/ML DISP.SYRIN IV PRN (06:00)
[2023-05-27 07:00] VITALS: BP 117/49; TEMP 98.2; O2SAT 94
[2023-05-27] MEDS ORDERED: WARFARIN SODIUM 2 MG TABLET PO SCH (07:00)
[2023-05-27 08:17] LABS: ALBUMIN 3.4 g/dL (3.4-5.0); BILIRUBIN,DIRECT 0.5 mg/dL (0.0-0.2); BILIRUBIN,TOTAL 1.4 mg/dL (0.2-1.0); CALCIUM, SERUM 9.2 mg/dL (8.5-10.1); POTASSIUM 3.5 mmol/L (3.5-5.1); TOTAL PROTEIN, SERUM 6.8 g/dL (6.4-8.2)
[2023-05-27] MEDS ORDERED: WARF1TAB86 PO (08:41)
[2023-05-27 08:46] LABS: INR 3.91 (0.91-1.10); PARTIAL THROMBOPLASTIN TIME 46.7 SEC (24.3-34.3)
[2023-05-27] MEDS: SPIRONOLACTONE 25 MG TABLET PO SCH (09:00)
[2023-05-27] MEDS: POTASSIUM CHLORIDE 10 MEQ TABLET.SA PO SCH (09:00)
[2023-05-27] MEDS: ATENOLOL 50 MG TABLET PO SCH (09:00)
[2023-05-27] MEDS ORDERED: BUMETANIDE (1 MG) 1 MG TABLET PO SCH (09:00)
[2023-05-27] MEDS: FLUTICASONE PROPIONATE 16 GM BOTTLE NS SCH (09:27)
[2023-05-27] MEDS: FUROSEMIDE 20 MG/2 ML VIAL IV SCH (11:40)
[2023-05-27 16:00] VITALS: BP 123/50; TEMP 98.2; O2SAT 94
[2023-05-27] MEDS ORDERED: ATORVASTATIN 40 MG TABLET PO SCH (18:00)
[2023-05-27 21:18] VITALS: BP 137/60; TEMP 97.8; O2SAT 96
[2023-05-28] VITALS: BP 146/67; TEMP 97.5; O2SAT 97
[2023-05-28] MEDS ORDERED: SORBITOL SOLUTION 70% 30 ML SOLUTION PO ONE (00:30)
[2023-05-28] MEDS ORDERED: LACTULOSE 10 G/15 ML UDC (PYXIS) PO PRN (00:30)
[2023-05-28 04:12] VITALS: BP 118/48; TEMP 97.7; O2SAT 96
[2023-05-28 06:25] LABS: BASOPHILS % (AUTO) 1.1 % (0.0-2.0); EOSINOPHILS # (AUTO) 0.8 K/uL (0.0-0.7); EOSINOPHILS % (AUTO) 18.8 % (0.0-6.0); HEMATOCRIT 31 % (33-45); HEMOGLOBIN 10.3 g/dL (11.5-14.8); LYMPHOCYTES # (AUTO) 0.6 K/uL (0.8-4.8); LYMPHOCYTES % (AUTO) 13.9 % (20.0-44.0); MEAN CORPUSCULAR HEMOGLOBIN 32 PG (26.0-33.0); MEAN CORPUSCULAR HGB CONC 33 g/dl (31.0-36.0); MEAN CORPUSCULAR VOLUME 95 fL (82-100); MONOCYTES # (AUTO) 0.4 K/uL (0.1-1.30); MONOCYTES % (AUTO) 9.8 % (2.0-12.0); NEUTROPHILS # (AUTO) 2.5 K/uL (1.8-8.9); NEUTROPHILS % (AUTO) 56.4 % (43.0-81.0); PLATELET COUNT (AUTO) 117 K/uL (150-450); RED BLOOD CELL COUNT(AUTO) 3.25 MIL/uL (4.0-5.2); RED CELL DISTRIBUTION WIDTH 13.7 % (11.5-15.0); WHITE BLOOD COUNT (AUTO) 4.4 K/uL (4.3-11.0)
[2023-05-28 06:31] LABS: INR 3.81 (0.91-1.10); PROTHROMBIN TIME 37.1 SECS (9.2-11.1)
[2023-05-28 06:59] LABS: CALCIUM, SERUM 9.6 mg/dL (8.5-10.1); MAGNESIUM 2.1 mg/dL (1.8-2.4); PHOSPHORUS 4.2 mg/dL (2.5-4.9); POTASSIUM 3.8 mmol/L (3.5-5.1)
[2023-05-28 07:00] VITALS: BP 111/52; TEMP 97.7; O2SAT 94
[2023-05-28] MEDS: POTASSIUM CHLORIDE 10 MEQ TABLET.SA PO SCH (08:37)
[2023-05-28] MEDS: FUROSEMIDE 20 MG/2 ML VIAL IV SCH (08:37)
[2023-05-28] MEDS: FLUTICASONE PROPIONATE 16 GM BOTTLE NS SCH (09:20)
[2023-05-28] MEDS: SPIRONOLACTONE 25 MG TABLET PO SCH (09:21)
[2023-05-28] MEDS: ATENOLOL 50 MG TABLET PO SCH (09:22)
[2023-05-28] MEDS: ENSURE ENLIVE CHOC 237 ML CAN PO SCH ×2 (11:58→17:05)
[2023-05-28 12:00] VITALS: BP 127/61; TEMP 97.6; O2SAT 95
[2023-05-28 16:00] VITALS: BP 134/70; TEMP 97.8; O2SAT 94
[2023-05-28] MEDS ORDERED: WARFARIN SODIUM 2 MG TABLET PO SCH ×2 (17:00)
[2023-05-28] MEDS ORDERED: WARFARIN SODIUM 1 MG TABLET PO SCH (17:00)
[2023-05-29] MEDS ORDERED: WARFARIN SODIUM 1 MG TABLET PO SCH (17:00)
== END 2023-05-28 18:20 | disposition home or self-care (01) | DRG 432 ==
LOC: ER 20:31 → TELE 22:48
PROVIDERS: ADMIT Internal Medicine; ATTEND Internal Medicine
DX: K74.60 Unspecified cirrhosis of liver (principal); I50.33 Acute on chronic diastolic (congestive) heart failure; R18.8 Other ascites; N39.0 Urinary tract infection, site not specified; M81.0 Age-related osteoporosis without current pathological fracture; I11.0 Hypertensive heart disease with heart failure; Z95.2 Presence of prosthetic heart valve; Z90.49 Acquired absence of other specified parts of digestive tract; Z98.890 Other specified postprocedural states; Z98.891 History of uterine scar from previous surgery; Z79.01 Long term (current) use of anticoagulants; Z79.51 Long term (current) use of inhaled steroids; Z79.899 Other long term (current) drug therapy; M19.90 Unspecified osteoarthritis, unspecified site; Z87.891 Personal history of nicotine dependence; R09.1 Pleurisy; I48.0 Paroxysmal atrial fibrillation; Z95.0 Presence of cardiac pacemaker; E78.00 Pure hypercholesterolemia, unspecified; R79.1 Abnormal coagulation profile; E80.6 Other disorders of bilirubin metabolism
CPT/HCPCS: 36415; 71045-TC; 76700-TC; 80048-TC; 80076-TC; 81001; 83735-TC; 83880; 84100-TC; 84484-TC; 85025-TC; 85610-TC; 85730-TC; 87081-TC; G0378; J1940

== ENCOUNTER 2024-06-03 16:55 | Emergency (ER) | payer MEDICARE, OTHER ==
[~2024-06-03] VITALS: Ht 144.8 cm; Wt 38.6 kg
[~2024-06-03 16:55] MED LIST changes: +WARF1TAB86 PO
[2024-06-03 17:10] VITALS: TEMP 98.7
[2024-06-03 17:43] LABS: EOSINOPHILS # (AUTO) 0.3 K/uL (0.0-0.7); EOSINOPHILS % (AUTO) 7.4 % (0.0-6.0); HEMATOCRIT 34 % (33-45); HEMOGLOBIN 11.6 g/dL (11.5-14.8); LYMPHOCYTES # (AUTO) 0.6 K/uL (0.8-4.8); LYMPHOCYTES % (AUTO) 15.9 % (20.0-44.0); MEAN CORPUSCULAR HEMOGLOBIN 33 PG (26.0-33.0); MEAN CORPUSCULAR HGB CONC 34 g/dl (31.0-36.0); MEAN CORPUSCULAR VOLUME 96 fL (82-100); MONOCYTES # (AUTO) 0.5 K/uL (0.1-1.30); MONOCYTES % (AUTO) 12.8 % (2.0-12.0); NEUTROPHILS # (AUTO) 2.2 K/uL (1.8-8.9); NEUTROPHILS % (AUTO) 62.9 % (43.0-81.0); PLATELET COUNT (AUTO) 87 K/uL (150-450); RED CELL DISTRIBUTION WIDTH 14.8 % (11.5-15.0); WHITE BLOOD COUNT (AUTO) 3.5 K/uL (4.3-11.0)
[2024-06-03 17:58] LABS: CARBON DIOXIDE 30 mmol/L (21-32); CHLORIDE 101 mmol/L (98-107); GLUCOSE 110 mg/dL (74-106); POTASSIUM 3.9 mmol/L (3.5-5.1); SODIUM SERUM 137 mmol/L (136-145); UREA NITROGEN, BLOOD 16 mg/dL (7-18)
[2024-06-03] MEDS ORDERED: DOXY100C2 PO (18:20)
[2024-06-03] MEDS ORDERED: AMOX500C2 PO (18:20)
[2024-06-03 18:55] VITALS: BP 147/84; O2SAT 95
[2024-06-03 19:14] LABS: EOSINOPHILS % (MANUAL) 8 % (0-4); LYMPHOCYTES % (MANUAL) 14 % (16-48); MONOCYTES % (MANUAL) 13 % (0-11.0); NEUTROPHILS % (MANUAL) 65 (42-76); PLATELET ESTIMATE DECREASED
== END 2024-06-03 19:09 | disposition home or self-care (01) ==
LOC: ER 17:06
DX: J22 Unspecified acute lower respiratory infection (principal); R05.9 Cough, unspecified; R09.81 Nasal congestion; I10 Essential (primary) hypertension; M81.0 Age-related osteoporosis without current pathological fracture; I42.9 Cardiomyopathy, unspecified; E78.00 Pure hypercholesterolemia, unspecified; Z86.79 Personal history of other diseases of the circulatory system; Z90.49 Acquired absence of other specified parts of digestive tract; Z95.0 Presence of cardiac pacemaker; Z20.822 Contact with and (suspected) exposure to COVID-19
CPT/HCPCS: 36415; 71045-TC; 80048-TC; 85025-TC

== ENCOUNTER 2024-06-06 15:00 | Inpatient (IN) | payer MEDICARE, OTHER ==
[~2024-06-06] VITALS: Ht 134.6 cm; Wt 36.3 kg
[~2024-06-06 15:00] MED LIST changes: +AMOX500C2 PO; +DOXY100C2 PO
--- NOTE | 2024-06-06 15:07 | NUR ---
BIBA [id number] "From Home spitting/vomiting ashlyn blood. On elequis"
[2024-06-06 16:12] LABS: PARTIAL THROMBOPLASTIN TIME 48.1 SEC (24.3-34.3); PROTHROMBIN TIME 46.6 SECS (9.2-11.1)
[2024-06-06 16:15] LABS: INR 4.88 (0.91-1.10)
[2024-06-06 16:28] LABS: ALANINE AMINOTRANSFERASE 33 U/L (12-78); ALBUMIN 4.5 g/dL (3.4-5.0); ALKALINE PHOSPHATASE 151 U/L (46-116); ASPARTATE AMINOTRANSFERASE 61 U/L (15-37); BILIRUBIN,TOTAL 2.1 mg/dL (0.2-1.0); CALCIUM, SERUM 8.9 mg/dL (8.5-10.1); CARBON DIOXIDE 27 mmol/L (21-32); CHLORIDE 100 mmol/L (98-107); CREATININE 1.1 mg/dL (0.6-1.3); GLUCOSE 90 mg/dL (74-106); POTASSIUM 3.7 mmol/L (3.5-5.1); SODIUM SERUM 136 mmol/L (136-145); TOTAL PROTEIN, SERUM 8.6 g/dL (6.4-8.2); UREA NITROGEN, BLOOD 15 mg/dL (7-18)
[2024-06-06] MEDS ORDERED: TRANEXAMIC ACID 1,000 MG/10 ML VIAL ONE (16:37)
[2024-06-06] MEDS: TRANEXAMIC ACID 1,000 MG/10 ML VIAL NS ONE (16:40)
--- NOTE | 2024-06-06 16:46 | NUR ---
MOVE SHEET SUBMITTED.
[2024-06-06 16:47] LABS: BASOPHILS % (AUTO) 0.7 % (0.0-2.0); EOSINOPHILS % (AUTO) 0.2 % (0.0-6.0); HEMATOCRIT 36 % (33-45); HEMOGLOBIN 12.3 g/dL (11.5-14.8); LYMPHOCYTES # (AUTO) 0.7 K/uL (0.8-4.8); MEAN CORPUSCULAR HEMOGLOBIN 33 PG (26.0-33.0); MEAN CORPUSCULAR HGB CONC 34 g/dl (31.0-36.0); MEAN CORPUSCULAR VOLUME 96 fL (82-100); MONOCYTES # (AUTO) 0.3 K/uL (0.1-1.30); MONOCYTES % (AUTO) 9.5 % (2.0-12.0); NEUTROPHILS # (AUTO) 2.4 K/uL (1.8-8.9); NEUTROPHILS % (AUTO) 69.6 % (43.0-81.0); PLATELET COUNT (AUTO) 100 K/uL (150-450); RED BLOOD CELL COUNT(AUTO) 3.79 MIL/uL (4.0-5.2); RED CELL DISTRIBUTION WIDTH 14.7 % (11.5-15.0); WHITE BLOOD COUNT (AUTO) 3.4 K/uL (4.3-11.0)
--- NOTE | 2024-06-06 17:42 | NUR ---
bed given 105, ready in 15 minutes
--- NOTE | 2024-06-06 17:55 | NUR ---
report given to sandy for ugo
--- NOTE | 2024-06-06 17:56 | NUR ---
RN NOTES REPORT RECEIVED FROM ANA MARIA CONTRERAS.
--- NOTE | 2024-06-06 19:32 | NUR ---
Transported to 105 via [facility]
--- NOTE | 2024-06-06 19:45 | NUR ---
COOK [employer] E[employer] NOTES RECEIVED PATIENT FROM ER VIA [facility]. REPORT GIVEN BY AM NURSE BRIA. PATIENT IS A/O X 4. FRIEND IS PRESENT AT THE BEDSIDE. ON ROOM AIR, RESPIRATION IS EVEN AND UNLABORED. NO SOB/RESPIRATORY DISTRESS NOTED. PATIENT HAS AN IV ACCESS ON LEFT UPPER ARM #18G , INTACT AND PATENT. PATIENT HAS ACTIVELY OOZING BLOOD ON GUMS - LEFT UPPER MOUTH. SKIN ASSESSMENT PERFORMED. PATIENT IS NOTED WITH BRUISES ON UPPER AND LOWER EXTREMITIES, AND LEFT HEEL , SKIN DISCOLORATION ON SACRUM. WOUND CARE CONSULT ORDERED. DENIES ANY PAIN OR DISCOMFORT. PATIENT WAS ORIENTED TO ROOM AND HOW TO USE THE CALL LIGHT. BELONGINGS ACCOUNTED FOR. SAFETY MEASURES IN PLACED. CALL LIGHT WITHIN REACH.
[2024-06-06 20:00] VITALS: BP 136/72; TEMP 98.8; O2SAT 96
[2024-06-06] MEDS ORDERED: MAG HYDROX/AL HYDROX/SIMETH 30 ML UDC PO PRN (21:30)
[2024-06-06] MEDS ORDERED: ACETAMINOPHEN 325 MG TABLET PO PRN (21:30)
[2024-06-06] MEDS ORDERED: ONDANSETRON HCL/PF 4 MG/2 ML VIAL IVP PRN (21:30)
[2024-06-06] MEDS ORDERED: MAGNESIUM HYDROXIDE 30 ML UDC PO PRN (21:30)
[2024-06-06] MEDS ORDERED: ALBUTEROL FS 2.5 MG/0.5 ML VIAL.NEB NEB PRN (22:00)
[2024-06-06] MEDS: ATORVASTATIN 40 MG TABLET PO SCH (22:00)
--- NOTE | 2024-06-06 22:05 | NUR ---
DIRECTOR OF OFFICIATING NOTES NOTIFIED CRITICAL LAB RESULT OF INR 5.21 TO [facility] WITH ORDER. NOTED AND CARRIED OUT.
[2024-06-06] MEDS ORDERED: PHYTONADIONE INJ 10 MG/1 ML AMPUL ONE (22:06)
[2024-06-06] MEDS: PHYTONADIONE 10 MG in IV D5W 50 ML IV ONE (22:13)
[2024-06-06 22:27] LABS: PROTHROMBIN TIME 49.6 SECS (9.2-11.1)
[2024-06-06 22:36] LABS: INR 5.21 (0.91-1.10)
[2024-06-07] VITALS: BP 133/56; TEMP 99; O2SAT 92
[2024-06-07 04:00] VITALS: BP 115/64; TEMP 98.1; O2SAT 95
[2024-06-07 07:11] LABS: EOSINOPHILS # (AUTO) 0.1 K/uL (0.0-0.7); EOSINOPHILS % (AUTO) 2.1 % (0.0-6.0); HEMATOCRIT 32 % (33-45); HEMOGLOBIN 10.7 g/dL (11.5-14.8); LYMPHOCYTES # (AUTO) 0.8 K/uL (0.8-4.8); LYMPHOCYTES % (AUTO) 26.7 % (20.0-44.0); MEAN CORPUSCULAR HEMOGLOBIN 32 PG (26.0-33.0); MEAN CORPUSCULAR HGB CONC 33 g/dl (31.0-36.0); MEAN CORPUSCULAR VOLUME 96 fL (82-100); MONOCYTES # (AUTO) 0.3 K/uL (0.1-1.30); MONOCYTES % (AUTO) 10.2 % (2.0-12.0); NEUTROPHILS # (AUTO) 1.8 K/uL (1.8-8.9); PLATELET COUNT (AUTO) 87 K/uL (150-450); RED BLOOD CELL COUNT(AUTO) 3.36 MIL/uL (4.0-5.2); RED CELL DISTRIBUTION WIDTH 14.5 % (11.5-15.0); WHITE BLOOD COUNT (AUTO) 3.1 K/uL (4.3-11.0)
--- NOTE | 2024-06-07 07:21 | NUR ---
RN CLOSING NOTES PATIENT IS IN BED, A/O X 4. ON ROOM AIR, RESPIRATION IS EVEN AND UNLABORED. NO SOB/RESPIRATORY DISTRESS NOTED. ON TELE MONITOR WITH CURRENTLY READING OF UNCONTROLLED A-FIB. PATIENT HAS AN IV ACCESS ON LEFT UPPER ARM #18G , INTACT AND PATENT. NO BLEEDING ON THE GUMS NOTED. ALL DUE MEDS GIVEN ORDERED AND TOLERATED WELL. NO COMPLAINS OF PAIN/DISCOMFORT NOTED. SAFETY MEASURES IN PLACED. CALL LIGHT WITHIN REACH. WILL ENDORSE TO ONCOMING NURSE FOR CONTINUITY OF CARE.
[2024-06-07 07:29] LABS: INR 2.21 (0.91-1.10); PROTHROMBIN TIME 22.2 SECS (9.2-11.1)
--- NOTE | 2024-06-07 07:35 | NUR ---
RN OPENING NOTE RECEIVED PATIENT IN BED AWAKE, A/O X4 SAMMARINESE SPEAKER. ABLE TO MAKE NEEDS KNOWN. ON ROOM AIR, BREATHING EVEN AND UNLABORED. ON TELE MONITORING READING HR=90'S. ON NPO. IV ON YESENIA #18G INTACT AND PATENT. SAFETY MEASURE IMPLEMENTED; BED LOCKED, IN LOW POSITION, SR UP, BED ALARM ON, CALL LIGHT AND SIDE TABLE WITHIN EASY REACH. PLAN OF CARE ONGOING.
[2024-06-07 07:41] LABS: CARBON DIOXIDE 25 mmol/L (21-32); CHLORIDE 105 mmol/L (98-107); CREATININE 0.8 mg/dL (0.6-1.3); GLUCOSE 61 mg/dL (74-106); MAGNESIUM 2.6 mg/dL (1.8-2.4); PHOSPHORUS 2.1 mg/dL (2.5-4.9); POTASSIUM 3.5 mmol/L (3.5-5.1); SODIUM SERUM 141 mmol/L (136-145); UREA NITROGEN, BLOOD 16 mg/dL (7-18)
[2024-06-07 08:00] VITALS: BP 130/57; TEMP 97.7; O2SAT 95
[2024-06-07] MEDS: POTASSIUM CHLORIDE 10 MEQ TABLET.SA PO SCH (08:43)
[2024-06-07] MEDS: SPIRONOLACTONE 25 MG TABLET PO SCH (08:43)
[2024-06-07] MEDS: BUMETANIDE (1 MG) 1 MG TABLET PO SCH (08:44)
[2024-06-07] MEDS: ATENOLOL 50 MG TABLET PO SCH (08:44)
[2024-06-07 10:15] LABS: BASOPHILS % (MANUAL) 0 % (0.0-2.0); EOSINOPHILS % (MANUAL) 1 % (0-4); LYMPHOCYTES % (MANUAL) 27 % (16-48); MONOCYTES % (MANUAL) 10 % (0-11.0); NEUTROPHILS % (MANUAL) 62 (42-76); PLATELET ESTIMATE DECREASED
--- NOTE | 2024-06-07 10:16 | NUR ---
WOUND CARE CONSULT: PT PRESENTS WITH DISCOLORATION TO LEFT HEEL AND TO SACRAL AREA, PRESENT ON ADMISSION. SACRAL AREA NOTED TO BE VERY BONY. PT DEMONSTRATES ABILITY TO TURN AND REPOSITION IN BED AND IS CONTINENT. DISCUSSED SKIN PROTECTION WITH NURSING STAFF. MD IN AGREEMENT WITH PLAN OF CARE.
[2024-06-07] MEDS: WARFARIN SODIUM 2 MG TABLET PO SCH (10:54)
[2024-06-07] MEDS: POTASSIUM PHOSPHATE MM 7.5 MMOL in IV NS 0.9% 100 ML IV SCH (10:57)
[2024-06-07 12:00] VITALS: BP 136/56; TEMP 97.7; O2SAT 98
[2024-06-07] MEDS ORDERED: LOPERAMIDE HCL (2 MG CAP) 2 MG CAPSULE PO PRN (15:30)
[2024-06-07 16:00] VITALS: BP 135/57; TEMP 97.9; O2SAT 95
--- NOTE | 2024-06-07 19:09 | NUR ---
RN CLOSING NOTE PATIENT IN BED AWAKE, A/O X4 [place]GI[place] SPEAKER. ABLE TO MAKE NEEDS KNOWN. ON ROOM AIR, BREATHING EVEN AND UNLABORED. NO DISTRESS NOTED. ON TELE MONITORING READING HR=90'S. IV ON YESENIA #18G INTACT AND PATENT SL. SAFETY MEASURE IMPLEMENTED; BED LOCKED, IN LOW POSITION, SR UP, BED ALARM ON, CALL LIGHT AND SIDE TABLE WITHIN EASY REACH. WILL ENDORSE TO NIGHT NURSE FOR CONTINUITY OF CARE.
--- NOTE | 2024-06-07 19:30 | NUR ---
COOK HOUSE SUPERVISOR OPENING NOTE RECEIVED PT IN BED. A/O X4. DENIES PAIN. NO DISTRESS AND DISCOMFORT NOTED. ON ROOM AIR, NO SOB NOTED. ON DIMENSION QUARRY SUPERVISOR, READING SR, HR 75. IV ACCESS ENRICO 18G, SL. PT IS AMB WITH ASSIST. ALL SAFETY PRECAUTIONS IN PLACE: BED LOCKED AND IN LOWEST POSITION, SIDE RAILS UP X3, CALL LIGHT AND TABLE WITHIN REACH. WILL CONTINUE PLAN OF CARE. Addendum: 06/07/24 at 2104 by THIERRY SMITH RN CORRECTION: HEART RHYTHM A-FIB.
[2024-06-07 20:00] VITALS: BP 130/53; TEMP 98.1; O2SAT 96
[2024-06-08] VITALS: BP 128/64; TEMP 98.3; O2SAT 97
[2024-06-08 04:00] VITALS: BP 122/56; TEMP 98.6; O2SAT 97
--- NOTE | 2024-06-08 06:57 | NUR ---
PAPER MACHINE TENDER CLOSING NOTE PT IN BED. A/O X4. DENIES PAIN. NO DISTRESS AND DISCOMFORT NOTED. ON ROOM AIR, NO SOB NOTED. ON LAB INTERN, READING A-FIB, HR 101. IV ACCESS ENRICO 18G, SL. PT IS AMB WITH ASSIST. PT HAD 1 BM , 2X VOIDED. ALL DUE MEDS GIVEN. BED LOCKED AND IN LOWEST POSITION, SIDE RAILS UP X3, CALL LIGHT AND TABLE WITHIN REACH. WILL ENDORSE TO NEXT SHIFT NURSE FOR CHRISTIANO.
[2024-06-08 07:02] LABS: BASOPHILS % (AUTO) 0.6 % (0.0-2.0); EOSINOPHILS # (AUTO) 0.3 K/uL (0.0-0.7); EOSINOPHILS % (AUTO) 5.9 % (0.0-6.0); HEMATOCRIT 33 % (33-45); HEMOGLOBIN 11.1 g/dL (11.5-14.8); LYMPHOCYTES % (AUTO) 22.6 % (20.0-44.0); MEAN CORPUSCULAR HEMOGLOBIN 32 PG (26.0-33.0); MEAN CORPUSCULAR HGB CONC 34 g/dl (31.0-36.0); MEAN CORPUSCULAR VOLUME 95 fL (82-100); MONOCYTES # (AUTO) 0.5 K/uL (0.1-1.30); MONOCYTES % (AUTO) 10.3 % (2.0-12.0); NEUTROPHILS # (AUTO) 2.8 K/uL (1.8-8.9); NEUTROPHILS % (AUTO) 60.6 % (43.0-81.0); PLATELET COUNT (AUTO) 116 K/uL (150-450); RED BLOOD CELL COUNT(AUTO) 3.46 MIL/uL (4.0-5.2); RED CELL DISTRIBUTION WIDTH 14.6 % (11.5-15.0); WHITE BLOOD COUNT (AUTO) 4.6 K/uL (4.3-11.0)
[2024-06-08 07:04] LABS: INR 1.46 (0.91-1.10); PROTHROMBIN TIME 15.1 SECS (9.2-11.1)
--- NOTE | 2024-06-08 07:40 | NUR ---
RN OPENING NOTE RECEIVED PATIENT IN BED AWAKE, A/O X4 [place] CITIZEN SPEAKER. ABLE TO MAKE HER NEEDS KNOWN. ON ROOM AIR, BREATHING EVEN AND UNLABORED. NO RESPIRATORY DISTRESS NOTED. ON TELE MONITORING READING UNCONTROLLED AFIB HR=90'S. IV ON YESENIA #18G INTACT AND PATENT SL. SAFETY MEASURE IMPLEMENTED; BED LOCKED, IN LOW POSITION, SR UP, BED ALARM ON, CALL LIGHT AND SIDE TABLE WITHIN EASY REACH. PLAN OF CARE ONGOING.
[2024-06-08 07:41] LABS: CALCIUM, SERUM 8.4 mg/dL (8.5-10.1); CARBON DIOXIDE 27 mmol/L (21-32); CHLORIDE 105 mmol/L (98-107); CREATININE 0.9 mg/dL (0.6-1.3); GLUCOSE 130 mg/dL (74-106); POTASSIUM 3.8 mmol/L (3.5-5.1); SODIUM SERUM 140 mmol/L (136-145); UREA NITROGEN, BLOOD 23 mg/dL (7-18)
[2024-06-08 08:00] VITALS: BP 106/72; TEMP 98.1; O2SAT 96
[2024-06-08] MEDS: ENOXAPARIN SODIUM 40 MG/0.4 ML DISP.SYRIN SQ SCH (10:18)
[2024-06-08 12:00] VITALS: BP 134/59; TEMP 98.2; O2SAT 99
[2024-06-08 16:00] VITALS: BP 113/61; TEMP 97.7; O2SAT 99
[2024-06-08] MEDS: ENSURE ENLIVE CHOC 237 ML CAN PO SCH (16:37)
--- NOTE | 2024-06-08 18:37 | NUR ---
RN CLOSING NOTE PATIENT IN BED AWAKE, A/O X4 UPPER [place]BI[place] SPEAKER. ABLE TO MAKE HER NEEDS KNOWN. ON ROOM AIR, BREATHING EVEN AND UNLABORED. NO RESPIRATORY DISTRESS NOTED. ON TELE MONITORING READING UNCONTROLLED AFIB HR=80'S. IV ON YESENIA #18G INTACT AND PATENT SL. SAFETY MEASURE IMPLEMENTED; BED LOCKED, IN LOW POSITION, SR UP, BED ALARM ON, CALL LIGHT AND SIDE TABLE WITHIN EASY REACH. WILL ENDORSE TO NIGHT NURSE FOR CONTINUITY OF CARE.
--- NOTE | 2024-06-08 19:15 | NUR ---
DISTRICT SUPERVISOR OPENING NOTE RECEIVED PT IN BED, A/O X 4, [place] SPEAKING. ON ROOM AIR, TOLERATING WELL. NO SIGNS OF DISTRESS NOTED. ON TELE MONITOR CURRENTLY SHOWING AFIB, HR 80s. WITH IV ACCESS ON YESENIA G#18, SL. SAFETY MEASURES IMPLEMENTED: BED LOCKED AND IN LOWEST POSITION, BED ALARM ON, SIDE RAILS UP, CALL LIGHT AND TABLE WITHIN EASY REACH, WILL CONTINUE PLAN OF CARE.
[2024-06-08 20:00] VITALS: BP 123/57; TEMP 97.7; O2SAT 96
[2024-06-09] VITALS: BP 120/63; TEMP 98.4; O2SAT 96
[2024-06-09 04:00] VITALS: BP 111/64; TEMP 98.4; O2SAT 97
--- NOTE | 2024-06-09 06:42 | NUR ---
EATING DISORDER PSYCHOLOGIST CLOSING NOTE PT IN BED, A/O X 4, [place] SPEAKING. ON ROOM AIR, TOLERATING WELL. NO SIGNS OF DISTRESS NOTED. ON TELE MONITOR CURRENTLY SHOWING AFIB, HR 80s. WITH IV ACCESS ON YESENIA G#18, SL. DUE MED GIVEN ORDERED. SAFETY MEASURES MAINTAINED: BED LOCKED AND IN LOWEST POSITION, BED ALARM ON, SIDE RAILS UP, CALL LIGHT AND TABLE WITHIN EASY REACH, WILL ENDORSE TO AM SHIFT NURSE FOR CHRISTIANO.
[2024-06-09 07:20] LABS: BASOPHILS % (AUTO) 0.6 % (0.0-2.0); EOSINOPHILS # (AUTO) 0.5 K/uL (0.0-0.7); EOSINOPHILS % (AUTO) 8.5 % (0.0-6.0); HEMATOCRIT 35 % (33-45); HEMOGLOBIN 11.6 g/dL (11.5-14.8); LYMPHOCYTES # (AUTO) 1.5 K/uL (0.8-4.8); LYMPHOCYTES % (AUTO) 27.5 % (20.0-44.0); MEAN CORPUSCULAR HEMOGLOBIN 31 PG (26.0-33.0); MEAN CORPUSCULAR HGB CONC 33 g/dl (31.0-36.0); MEAN CORPUSCULAR VOLUME 95 fL (82-100); MONOCYTES # (AUTO) 0.6 K/uL (0.1-1.30); MONOCYTES % (AUTO) 11.4 % (2.0-12.0); NEUTROPHILS # (AUTO) 2.9 K/uL (1.8-8.9); PLATELET COUNT (AUTO) 128 K/uL (150-450); RED BLOOD CELL COUNT(AUTO) 3.69 MIL/uL (4.0-5.2); RED CELL DISTRIBUTION WIDTH 14.4 % (11.5-15.0); WHITE BLOOD COUNT (AUTO) 5.5 K/uL (4.3-11.0)
[2024-06-09 07:31] LABS: INR 1.37 (0.91-1.10); PROTHROMBIN TIME 14.2 SECS (9.2-11.1)
--- NOTE | 2024-06-09 07:43 | NUR ---
RN OPENING NOTES PT IS IN BED ASLEEP, A/O X4, ITALIAN SPEAKING, ABLE TO MAKE NEEDS KNOWN. ON RA TOLERATING WELL. ON TELE READING HR, 80S. IV ON THE YESENIA 18G, SL, PATENT AND INTACT. PT IS ABLE TO AMBULATE TO THE RESTROOM WITH ASSISTANCE. SAFETY MEASURES IN PLACE: BED AT LOWEST AND LOCKED POSITION, SIDE RAILS X2, HOB ELEVATED, CALL LIGHT AND TABLE WITHIN REACH.
[2024-06-09 07:49] LABS: CALCIUM, SERUM 9.1 mg/dL (8.5-10.1); CARBON DIOXIDE 28 mmol/L (21-32); CHLORIDE 102 mmol/L (98-107); CREATININE 0.9 mg/dL (0.6-1.3); GLUCOSE 96 mg/dL (74-106); SODIUM SERUM 139 mmol/L (136-145); UREA NITROGEN, BLOOD 22 mg/dL (7-18)
[2024-06-09 08:00] VITALS: BP 96/54; TEMP 98.2; O2SAT 97
--- NOTE | 2024-06-09 08:23 | NUR ---
RN NOTES 0900 SPIRONOLACTONE AND ATENOLOL HELD D/T BP 96/54
[2024-06-09 12:00] VITALS: BP 115/76; TEMP 97.7; O2SAT 97
--- NOTE | 2024-06-09 13:45 | NUR ---
RN NOTES PT IS BEING DC TO [facility], REPORT HAD BEEN GIVEN TO ANA MARIA ELLIOTT. PT HAS SIGNED AND HAS BEEN PROVIDED PAPERWORK AND DOCUMENTS. IV IS REMOVED PT IS DISCHARGED BY [facility] AND IS SAFELY DISCHARGED IN MEDICALLY STABLE CONDITION.
[2024-06-09] MEDS ORDERED: WARFARIN SODIUM 2 MG TABLET PO SCH (17:00)
== END 2024-06-09 13:45 | DRG 948 ==
LOC: ER 15:02 → MEDSG1 17:49 → TELE1 06-07 01:26
PROVIDERS: ATTEND Nurse Practitioner Acute Care
DX: R79.1 Abnormal coagulation profile (principal); I50.32 Chronic diastolic (congestive) heart failure; K86.1 Other chronic pancreatitis; I11.0 Hypertensive heart disease with heart failure; K74.60 Unspecified cirrhosis of liver; K21.9 Gastro-esophageal reflux disease without esophagitis; Z20.822 Contact with and (suspected) exposure to COVID-19; Z98.890 Other specified postprocedural states; Z90.49 Acquired absence of other specified parts of digestive tract; M81.0 Age-related osteoporosis without current pathological fracture; E78.00 Pure hypercholesterolemia, unspecified; Z95.2 Presence of prosthetic heart valve; Z98.891 History of uterine scar from previous surgery; Z79.01 Long term (current) use of anticoagulants; Z79.899 Other long term (current) drug therapy; Z95.0 Presence of cardiac pacemaker; I48.91 Unspecified atrial fibrillation; K64.9 Unspecified hemorrhoids; E80.6 Other disorders of bilirubin metabolism
CPT/HCPCS: 36415; 71045-TC; 80048-TC; 80053-TC; 83735-TC; 84100-TC; 85025-TC; 85610-TC; 85730-TC; 97110-TC; 97112-TC; 97116-TC; 97530-TC; 97535-TC; A4223; G0378; J1650; J3430; J3490; J7030; J7050; J7060

== ENCOUNTER 2024-09-26 14:39 | Inpatient (IN) | payer MEDICARE, OTHER ==
[~2024-09-26] VITALS: Ht 144.8 cm; Wt 41.7 kg
[~2024-09-26 14:39] MED LIST changes: -AMOX500C2 PO; -DOXY100C2 PO; -FLUT16SP
[2024-09-26] MEDS ORDERED: MORPHINE SULFATE INJ 2 MG/ML DISP.SYRIN ONE (15:32)
[2024-09-26] MEDS ORDERED: PANTOPRAZOLE 40 MG VIAL ONE (15:32)
[2024-09-26] MEDS ORDERED: ONDANSETRON HCL/PF 4 MG/2 ML VIAL ONE (15:32)
[2024-09-26] MEDS: ONDANSETRON HCL/PF 4 MG/2 ML VIAL IVP ONE (16:11)
[2024-09-26 16:13] LABS: BASOPHILS % (AUTO) 0.6 % (0.0-2.0); EOSINOPHILS # (AUTO) 0.2 K/uL (0.0-0.7); EOSINOPHILS % (AUTO) 3.7 % (0.0-6.0); HEMATOCRIT 36 % (33-45); HEMOGLOBIN 12.3 g/dL (11.5-14.8); LYMPHOCYTES # (AUTO) 0.7 K/uL (0.8-4.8); LYMPHOCYTES % (AUTO) 10.1 % (20.0-44.0); MEAN CORPUSCULAR HEMOGLOBIN 34 PG (26.0-33.0); MEAN CORPUSCULAR HGB CONC 34 g/dl (31.0-36.0); MEAN CORPUSCULAR VOLUME 101 fL (82-100); MONOCYTES # (AUTO) 0.5 K/uL (0.1-1.30); MONOCYTES % (AUTO) 7.4 % (2.0-12.0); NEUTROPHILS # (AUTO) 5.1 K/uL (1.8-8.9); NEUTROPHILS % (AUTO) 78.2 % (43.0-81.0); PLATELET COUNT (AUTO) 140 K/uL (150-450); RED CELL DISTRIBUTION WIDTH 13.9 % (11.5-15.0); WHITE BLOOD COUNT (AUTO) 6.5 K/uL (4.3-11.0)
[2024-09-26] MEDS: MORPHINE SULFATE INJ 2 MG/ML DISP.SYRIN IV ONE (16:14)
[2024-09-26] MEDS: PANTOPRAZOLE 40 MG VIAL IV ONE (16:14)
[2024-09-26 16:32] LABS: ALANINE AMINOTRANSFERASE 30 U/L (12-78); ALBUMIN 3.7 g/dL (3.4-5.0); ALKALINE PHOSPHATASE 136 U/L (46-116); ASPARTATE AMINOTRANSFERASE 39 U/L (15-37); BILIRUBIN,DIRECT 0.6 mg/dL (0.0-0.2); BILIRUBIN,TOTAL 1.7 mg/dL (0.2-1.0); CALCIUM, SERUM 9.3 mg/dL (8.5-10.1); CARBON DIOXIDE 31 mmol/L (21-32); CHLORIDE 100 mmol/L (98-107); CREATININE 1.2 mg/dL (0.6-1.3); GLUCOSE 109 mg/dL (74-106); LIPASE 132 U/L (16-77); POTASSIUM 4.3 mmol/L (3.5-5.1); SODIUM SERUM 136 mmol/L (136-145); TOTAL PROTEIN, SERUM 7.5 g/dL (6.4-8.2); UREA NITROGEN, BLOOD 24 mg/dL (7-18)
[2024-09-26 16:56] LABS: INR 2.5 (0.91-1.10); PARTIAL THROMBOPLASTIN TIME 36.7 SEC (24.3-34.3)
[2024-09-26 17:11] LABS: APPEARANCE,URINE Clear (CLEAR); BILIRUBIN,URINE SMALL (NEGATIVE); BLOOD, URINE Moderate Ery/uL (NEGATIVE); COLOR,URINE DARK YELLOW (YELLOW); KETONES,URINE Trace mg/dL (NEGATIVE); LEUKOCYTE ESTERASE ,URINE Negative (NEGATIVE); NITRITE, URINE Negative (NEGATIVE); PH,URINE 5.5 (5.0-8.0); PROTEIN,URINE 30 mg/dl (NEGATIVE); UGLUCOSE Negative (NEGATIVE)
[2024-09-26 17:53] LABS: SQUAMOUS EPITHELIAL CELL,UR Few /HPF (None Seen)
[2024-09-26 17:55] LABS: MUCUS,URINE Moderate /LPF (None Seen)
[2024-09-26 17:56] LABS: ADD URINE CULTURE NO; BACTERIA,URINE Few /HPF (None Seen); WBC,URINE 0-2 /HPF (0-3)
[2024-09-26 17:58] LABS: HYALINE CASTS, URINE Rare /LPF (None Seen)
[2024-09-26] MEDS ORDERED: Z GUARD REMEDY 4 OZ OINT TP PRN (20:00)
[2024-09-26 21:24] VITALS: BP 117/75; TEMP 97.5; O2SAT 92
[2024-09-26] MEDS: ATORVASTATIN 40 MG TABLET PO SCH (22:00)
[2024-09-26] MEDS: IV NS 0.9% 1,000 ML IV SCH (22:13)
[2024-09-27] VITALS: BP 105/67; TEMP 97.7; O2SAT 90
[2024-09-27 04:00] VITALS: BP 119/54; TEMP 97.7; O2SAT 100
[2024-09-27 06:48] LABS: BASOPHILS # (AUTO) 0.1 K/uL (0.0-0.2); BASOPHILS % (AUTO) 1.2 % (0.0-2.0); EOSINOPHILS # (AUTO) 0.1 K/uL (0.0-0.7); EOSINOPHILS % (AUTO) 2.6 % (0.0-6.0); HEMATOCRIT 33 % (33-45); LYMPHOCYTES # (AUTO) 0.7 K/uL (0.8-4.8); LYMPHOCYTES % (AUTO) 15.1 % (20.0-44.0); MEAN CORPUSCULAR HEMOGLOBIN 33 PG (26.0-33.0); MEAN CORPUSCULAR HGB CONC 33 g/dl (31.0-36.0); MEAN CORPUSCULAR VOLUME 100 fL (82-100); MONOCYTES # (AUTO) 0.4 K/uL (0.1-1.30); MONOCYTES % (AUTO) 9.2 % (2.0-12.0); NEUTROPHILS # (AUTO) 3.2 K/uL (1.8-8.9); NEUTROPHILS % (AUTO) 71.9 % (43.0-81.0); PLATELET COUNT (AUTO) 107 K/uL (150-450); RED CELL DISTRIBUTION WIDTH 13.8 % (11.5-15.0); WHITE BLOOD COUNT (AUTO) 4.5 K/uL (4.3-11.0)
[2024-09-27 07:22] LABS: ALBUMIN 3.6 g/dL (3.4-5.0); BILIRUBIN,DIRECT 0.6 mg/dL (0.0-0.2); BILIRUBIN,TOTAL 1.7 mg/dL (0.2-1.0); CALCIUM, SERUM 8.7 mg/dL (8.5-10.1); CREATININE 1.2 mg/dL (0.6-1.3); MAGNESIUM 2.2 mg/dL (1.8-2.4); PHOSPHORUS 3.5 mg/dL (2.5-4.9); POTASSIUM 4.3 mmol/L (3.5-5.1)
[2024-09-27 08:00] VITALS: BP 105/51; TEMP 98.1; O2SAT 100
[2024-09-27] MEDS: BUMETANIDE INJ 0.25 MG/ML VIAL IV SCH (08:31)
[2024-09-27] MEDS: PANTOPRAZOLE 40 MG VIAL IV SCH (08:31)
[2024-09-27] MEDS: ATENOLOL 25 MG TABLET PO SCH (08:37)
[2024-09-27] MEDS: SPIRONOLACTONE 25 MG TABLET PO SCH (08:37)
[2024-09-27] MEDS: MORPHINE SULFATE INJ 2 MG/ML DISP.SYRIN IV PRN (11:36)
[2024-09-27] MEDS: ONDANSETRON HCL/PF 4 MG/2 ML VIAL IVP PRN (11:37)
[2024-09-27 12:00] VITALS: BP 114/77; TEMP 97.9; O2SAT 97
[2024-09-27 16:00] VITALS: BP 124/69; TEMP 98.4; O2SAT 97
[2024-09-27] MEDS: METOCLOPRAMIDE HCL 10 MG/2 ML VIAL IV ONE (16:16)
[2024-09-27 17:09] LABS: CREATININE, URINE 27.2 MG/DL (30.0-125.0); URINE TOTAL PROTEIN 6.2 mg/dL (0-11.9)
[2024-09-27] MEDS: DICYCLOMINE HCL 10 MG CAPSULE PO SCH (17:45)
[2024-09-27] MEDS: METHOCARBAMOL (500MG) 500 MG TABLET PO SCH (17:45)
[2024-09-27] MEDS: WARFARIN SODIUM 1 MG TABLET PO SCH (17:47)
[2024-09-27 21:49] VITALS: BP 111/70; TEMP 97.3; O2SAT 97
[2024-09-28] VITALS: BP 118/68; TEMP 97.5; O2SAT 97
[2024-09-28 04:13] VITALS: BP 101/65; TEMP 97.7; O2SAT 97
[2024-09-28 06:33] LABS: BASOPHILS % (AUTO) 0.7 % (0.0-2.0); EOSINOPHILS # (AUTO) 0.1 K/uL (0.0-0.7); HEMATOCRIT 33 % (33-45); LYMPHOCYTES # (AUTO) 0.8 K/uL (0.8-4.8); LYMPHOCYTES % (AUTO) 11.5 % (20.0-44.0); MEAN CORPUSCULAR HEMOGLOBIN 34 PG (26.0-33.0); MEAN CORPUSCULAR HGB CONC 34 g/dl (31.0-36.0); MEAN CORPUSCULAR VOLUME 100 fL (82-100); MONOCYTES # (AUTO) 0.8 K/uL (0.1-1.30); MONOCYTES % (AUTO) 11.4 % (2.0-12.0); NEUTROPHILS # (AUTO) 5.1 K/uL (1.8-8.9); NEUTROPHILS % (AUTO) 75.4 % (43.0-81.0); PLATELET COUNT (AUTO) 120 K/uL (150-450); RED BLOOD CELL COUNT(AUTO) 3.26 MIL/uL (4.0-5.2); RED CELL DISTRIBUTION WIDTH 13.7 % (11.5-15.0); WHITE BLOOD COUNT (AUTO) 6.8 K/uL (4.3-11.0)
[2024-09-28 06:45] LABS: INR 3.09 (0.91-1.10); PARTIAL THROMBOPLASTIN TIME 36.6 SEC (24.3-34.3); PROTHROMBIN TIME 30.4 SECS (9.2-11.1)
[2024-09-28 07:45] LABS: CALCIUM, SERUM 8.5 mg/dL (8.5-10.1); CREATININE 2.2 mg/dL (0.6-1.3); POTASSIUM 4.5 mmol/L (3.5-5.1)
[2024-09-28 07:54] LABS: BILIRUBIN,DIRECT 0.7 mg/dL (0.0-0.2); BILIRUBIN,TOTAL 1.7 mg/dL (0.2-1.0); MAGNESIUM 2.3 mg/dL (1.8-2.4); PHOSPHORUS 4.5 mg/dL (2.5-4.9); TOTAL PROTEIN, SERUM 7.3 g/dL (6.4-8.2)
[2024-09-28 08:00] VITALS: BP 104/56; TEMP 97.9; O2SAT 97
[2024-09-28 11:42] LABS: ALBUMIN 3.8 g/dL (3.4-5.0)
[2024-09-28 12:00] VITALS: BP 103/71; TEMP 98.1; O2SAT 98
[2024-09-28 16:00] VITALS: BP 102/63; TEMP 98.1; O2SAT 98
[2024-09-28 20:00] VITALS: BP 120/86; TEMP 97.9; O2SAT 100
[2024-09-29] VITALS: BP 133/86; TEMP 97.6; O2SAT 100
[2024-09-29 04:00] VITALS: BP 113/70; TEMP 98.1; O2SAT 100
[2024-09-29 06:37] LABS: BASOPHILS % (AUTO) 0.6 % (0.0-2.0); EOSINOPHILS # (AUTO) 0.5 K/uL (0.0-0.7); HEMATOCRIT 30 % (33-45); LYMPHOCYTES # (AUTO) 0.6 K/uL (0.8-4.8); MEAN CORPUSCULAR HEMOGLOBIN 33 PG (26.0-33.0); MEAN CORPUSCULAR HGB CONC 34 g/dl (31.0-36.0); MEAN CORPUSCULAR VOLUME 99 fL (82-100); MONOCYTES # (AUTO) 0.5 K/uL (0.1-1.30); MONOCYTES % (AUTO) 9.7 % (2.0-12.0); NEUTROPHILS # (AUTO) 3.9 K/uL (1.8-8.9); NEUTROPHILS % (AUTO) 70.7 % (43.0-81.0); PLATELET COUNT (AUTO) 98 K/uL (150-450); RED BLOOD CELL COUNT(AUTO) 3.04 MIL/uL (4.0-5.2); RED CELL DISTRIBUTION WIDTH 13.9 % (11.5-15.0); WHITE BLOOD COUNT (AUTO) 5.5 K/uL (4.3-11.0)
[2024-09-29 07:54] LABS: ALBUMIN 3.5 g/dL (3.4-5.0); BILIRUBIN,TOTAL 1.4 mg/dL (0.2-1.0); CALCIUM, SERUM 8.3 mg/dL (8.5-10.1); CREATININE 1.7 mg/dL (0.6-1.3); POTASSIUM 3.7 mmol/L (3.5-5.1); TOTAL PROTEIN, SERUM 6.7 g/dL (6.4-8.2)
[2024-09-29 08:00] VITALS: BP 109/74; TEMP 97.7; O2SAT 99
[2024-09-29] MEDS: PANTOPRAZOLE 40 MG TABLET.DR PO SCH (09:00)
[2024-09-29 11:01] LABS: EOSINOPHILS % (MANUAL) 7 % (0-4); LYMPHOCYTES % (MANUAL) 7 % (16-48); MONOCYTES % (MANUAL) 8 % (0-11.0); NEUTROPHILS % (MANUAL) 78 (42-76)
[2024-09-29 11:02] LABS: PLATELET ESTIMATE DECREASED
[2024-09-29 12:00] VITALS: BP 104/80; TEMP 98.4; O2SAT 99
[2024-09-29] MEDS ORDERED: ACETAMINOPHEN 325 MG TABLET PO PRN (12:30)
[2024-09-29] MEDS: SIMETHICONE 80 MG TAB.CHEW PO SCH (13:36)
[2024-09-29 16:00] VITALS: BP 117/80; TEMP 97.9; O2SAT 100
[2024-09-29 20:00] VITALS: BP 123/89; TEMP 98.1; O2SAT 100
[2024-09-30] VITALS: BP 118/74; TEMP 98.3; O2SAT 100
[2024-09-30 04:00] VITALS: BP 115/79; TEMP 98.1; O2SAT 100
[2024-09-30 06:56] LABS: BASOPHILS % (AUTO) 0.5 % (0.0-2.0); EOSINOPHILS # (AUTO) 0.3 K/uL (0.0-0.7); HEMATOCRIT 30 % (33-45); HEMOGLOBIN 10.3 g/dL (11.5-14.8); LYMPHOCYTES # (AUTO) 0.5 K/uL (0.8-4.8); LYMPHOCYTES % (AUTO) 8.9 % (20.0-44.0); MEAN CORPUSCULAR HEMOGLOBIN 34 PG (26.0-33.0); MEAN CORPUSCULAR HGB CONC 34 g/dl (31.0-36.0); MEAN CORPUSCULAR VOLUME 99 fL (82-100); MONOCYTES # (AUTO) 0.5 K/uL (0.1-1.30); MONOCYTES % (AUTO) 8.7 % (2.0-12.0); NEUTROPHILS % (AUTO) 76.9 % (43.0-81.0); PLATELET COUNT (AUTO) 89 K/uL (150-450); RED BLOOD CELL COUNT(AUTO) 3.07 MIL/uL (4.0-5.2); RED CELL DISTRIBUTION WIDTH 13.7 % (11.5-15.0); WHITE BLOOD COUNT (AUTO) 5.2 K/uL (4.3-11.0)
[2024-09-30 07:18] LABS: CALCIUM, SERUM 8.8 mg/dL (8.5-10.1); CREATININE 1.1 mg/dL (0.6-1.3); MAGNESIUM 2.1 mg/dL (1.8-2.4); PHOSPHORUS 1.9 mg/dL (2.5-4.9); POTASSIUM 4.1 mmol/L (3.5-5.1)
[2024-09-30 08:00] VITALS: BP 120/67; TEMP 98.2; O2SAT 99
[2024-09-30 08:35] LABS: EOSINOPHILS % (MANUAL) 5 % (0-4); HYPOCHROMASIA 1+; LYMPHOCYTES % (MANUAL) 8 % (16-48); MONOCYTES % (MANUAL) 7 % (0-11.0); NEUTROPHILS % (MANUAL) 80 (42-76); PLATELET ESTIMATE DECREASED
[2024-09-30 08:36] LABS: ANISOCYTOSIS 1+
[2024-09-30 12:00] VITALS: BP 118/88; TEMP 98.1; O2SAT 100
[2024-09-30 16:00] VITALS: BP 117/67; TEMP 98.2; O2SAT 90
[2024-09-30] MEDS: ALPRAZOLAM 0.25 MG TABLET PO PRN (16:55)
[2024-09-30] MEDS: DILTIAZEM HCL CD 120 MG PO SCH (16:55)
[2024-09-30] MEDS ORDERED: DILTIAZEM HCL CD 240 MG PO SCH (17:00)
[2024-09-30] MEDS: GLUCERNA SHAKE 237 ML CAN PO SCH (17:32)
[2024-09-30] MEDS: K PHOS NEUTRAL 250 MG TABLET PO ONE (17:33)
[2024-09-30] MEDS: WARFARIN SODIUM 2 MG TABLET PO SCH (17:52)
[2024-09-30 20:00] VITALS: BP 121/77; TEMP 97.5; O2SAT 98
[2024-10-01] VITALS: BP 105/83; TEMP 97.9; O2SAT 96
[2024-10-01 04:00] VITALS: BP 109/67; TEMP 97.9; O2SAT 97
[2024-10-01 08:00] VITALS: BP 96/53; TEMP 97.8; O2SAT 94
[2024-10-01 08:04] LABS: CALCIUM, SERUM 8.5 mg/dL (8.5-10.1); CREATININE 1.1 mg/dL (0.6-1.3); PHOSPHORUS 2.5 mg/dL (2.5-4.9); POTASSIUM 4.2 mmol/L (3.5-5.1)
[2024-10-01] MEDS: BUMETANIDE (1 MG) 1 MG TABLET PO SCH (10:54)
[2024-10-01 12:00] VITALS: BP 131/65; TEMP 98; O2SAT 95
[2024-10-01 16:00] VITALS: BP 114/64; TEMP 98.7; O2SAT 95
[2024-10-01 17:10] VITALS: BP 114/64
[2024-10-01] MEDS: DILTIAZEM HCL 30 MG TABLET PO ONE (17:10)
== END 2024-10-01 20:07 | DRG 438 ==
LOC: ER 14:42 → MEDSG1 19:30 → TELE1 20:06
PROVIDERS: ATTEND Nurse Practitioner Family
DX: K85.90 Acute pancreatitis without necrosis or infection, unspecified (principal); I50.33 Acute on chronic diastolic (congestive) heart failure; N17.0 Acute kidney failure with tubular necrosis; I13.0 Hypertensive heart and chronic kidney disease with heart failure and stage 1 through stage 4 chronic kidney disease, or unspecified chronic kidney disease; J90 Pleural effusion, not elsewhere classified; E86.0 Dehydration; N18.9 Chronic kidney disease, unspecified; Z95.2 Presence of prosthetic heart valve; Z90.49 Acquired absence of other specified parts of digestive tract; Z98.890 Other specified postprocedural states; M81.0 Age-related osteoporosis without current pathological fracture; E78.00 Pure hypercholesterolemia, unspecified; Z98.891 History of uterine scar from previous surgery; Z79.01 Long term (current) use of anticoagulants; Z79.899 Other long term (current) drug therapy; D69.6 Thrombocytopenia, unspecified; K74.60 Unspecified cirrhosis of liver; I48.91 Unspecified atrial fibrillation; D64.9 Anemia, unspecified; K76.0 Fatty (change of) liver, not elsewhere classified; M43.12 Spondylolisthesis, cervical region; M50.30 Other cervical disc degeneration, unspecified cervical region; M89.8X9 Other specified disorders of bone, unspecified site; Z95.0 Presence of cardiac pacemaker; E80.6 Other disorders of bilirubin metabolism
CPT/HCPCS: 36415; 70450-TC; 71045-TC; 72125-TC; 76705-TC; 80048-TC; 80053-TC; 80061-TC; 80076-TC; 81001; 82140-TC; 82570-TC; 82962-TC; 83690-TC; 83735-TC; 84100-TC; 84300-TC; 84484-TC; 85025-TC; 85730-TC; 87086-TC; 93307-TC; 97110-TC; 97116-TC; 97530-TC; A4223; G0378; J2270; J2405; J2470; J2765; J3490; J7030

== ENCOUNTER 2024-10-06 18:09 | Inpatient (IN) | payer MEDICARE, OTHER ==
[~2024-10-06] VITALS: Ht 147.3 cm; Wt 37.2 kg
[~2024-10-06 18:09] MED LIST changes: +ALPR0.255 PO; -WARF1TAB86 PO
[2024-10-06 20:18] LABS: BASOPHILS % (AUTO) 0.6 % (0.0-2.0); EOSINOPHILS # (AUTO) 0.2 K/uL (0.0-0.7); EOSINOPHILS % (AUTO) 3.8 % (0.0-6.0); HEMATOCRIT 32 % (33-45); HEMOGLOBIN 10.8 g/dL (11.5-14.8); LYMPHOCYTES # (AUTO) 0.6 K/uL (0.8-4.8); LYMPHOCYTES % (AUTO) 10.5 % (20.0-44.0); MEAN CORPUSCULAR HEMOGLOBIN 33 PG (26.0-33.0); MEAN CORPUSCULAR HGB CONC 34 g/dl (31.0-36.0); MEAN CORPUSCULAR VOLUME 97 fL (82-100); MONOCYTES # (AUTO) 0.9 K/uL (0.1-1.30); MONOCYTES % (AUTO) 14.6 % (2.0-12.0); NEUTROPHILS # (AUTO) 4.2 K/uL (1.8-8.9); NEUTROPHILS % (AUTO) 70.5 % (43.0-81.0); PLATELET COUNT (AUTO) 143 K/uL (150-450); RED BLOOD CELL COUNT(AUTO) 3.31 MIL/uL (4.0-5.2); RED CELL DISTRIBUTION WIDTH 14.1 % (11.5-15.0); WHITE BLOOD COUNT (AUTO) 5.9 K/uL (4.3-11.0)
[2024-10-06 20:52] LABS: APPEARANCE,URINE CLEAR (CLEAR); BILIRUBIN,URINE NEGATIVE (NEGATIVE); BLOOD, URINE 2+ Ery/uL (NEGATIVE); COLOR,URINE YELLOW (YELLOW); KETONES,URINE NEGATIVE (NEGATIVE); LEUKOCYTE ESTERASE ,URINE NEGATIVE (NEGATIVE); NITRITE, URINE NEGATIVE (NEGATIVE); PH,URINE 6.5 (5.0-8.0); PROTEIN,URINE NEGATIVE (NEGATIVE); UGLUCOSE NEGATIVE (NEGATIVE)
[2024-10-06 20:53] LABS: CALCIUM, SERUM 9.7 mg/dL (8.5-10.1); CARBON DIOXIDE 33 mmol/L (21-32); CHLORIDE 98 mmol/L (98-107); CREATININE 1.2 mg/dL (0.6-1.3); GLUCOSE 139 mg/dL (74-106); POTASSIUM 4.8 mmol/L (3.5-5.1); SODIUM SERUM 134 mmol/L (136-145); UREA NITROGEN, BLOOD 18 mg/dL (7-18)
[2024-10-06 20:54] LABS: PARTIAL THROMBOPLASTIN TIME 60.9 SEC (24.3-34.3); PROTHROMBIN TIME 99.7 SECS (9.2-11.1)
[2024-10-06 20:57] LABS: ADD URINE CULTURE NO; BACTERIA,URINE Few /HPF (None Seen); SQUAMOUS EPITHELIAL CELL,UR Few /HPF (None Seen); WBC,URINE 0-2 /HPF (0-3)
[2024-10-06 20:59] LABS: ALANINE AMINOTRANSFERASE 24 U/L (12-78); ALBUMIN 3.3 g/dL (3.4-5.0); ALKALINE PHOSPHATASE 131 U/L (46-116); ASPARTATE AMINOTRANSFERASE 38 U/L (15-37); BILIRUBIN,DIRECT 0.6 mg/dL (0.0-0.2); BILIRUBIN,TOTAL 1.2 mg/dL (0.2-1.0); TOTAL PROTEIN, SERUM 7.4 g/dL (6.4-8.2)
[2024-10-06 21:00] LABS: LIPASE > 375 U/L (16-77)
[2024-10-06] MEDS: MORPHINE SULFATE INJ 2 MG/ML DISP.SYRIN IV ONE (21:30)
[2024-10-06] MEDS: ONDANSETRON HCL/PF 4 MG/2 ML VIAL IVP ONE (21:30)
[2024-10-06] MEDS: IV NS 0.9% 500 ML BAG IV ONE (21:37)
[2024-10-06] MEDS ORDERED: ONDANSETRON HCL/PF 4 MG/2 ML VIAL ONE (21:43)
[2024-10-06] MEDS ORDERED: MORPHINE SULFATE INJ 2 MG/ML DISP.SYRIN ONE (21:43)
[2024-10-06] MEDS ORDERED: ACETAMINOPHEN 325 MG TABLET PO PRN (23:30)
[2024-10-06] MEDS ORDERED: IV NS 0.9% 1,000 ML IV PRN (23:30)
[2024-10-06] MEDS ORDERED: ONDANSETRON HCL/PF 4 MG/2 ML VIAL IVP PRN (23:30)
[2024-10-06] MEDS ORDERED: MORPHINE SULFATE INJ 2 MG/ML DISP.SYRIN IV PRN (23:30)
[2024-10-06] MEDS ORDERED: Z GUARD REMEDY 4 OZ OINT TP PRN (23:30)
[2024-10-06] MEDS ORDERED: PHYTONADIONE INJ 10 MG/1 ML AMPUL ONE (23:39)
[2024-10-07] VITALS: BP 110/64; TEMP 97.7; O2SAT 96
[2024-10-07 00:34] VITALS: BP 110/64; TEMP 97.7; O2SAT 96
[2024-10-07] MEDS: IV NS 0.9% 1,000 ML IV PRN (00:45)
[2024-10-07] MEDS: PHYTONADIONE INJ 1 MG/0.5 ML AMPUL IM ONE (01:25)
[2024-10-07 04:00] VITALS: BP 105/56; TEMP 98.2; O2SAT 97
[2024-10-07 07:22] LABS: BASOPHILS % (AUTO) 0.6 % (0.0-2.0); EOSINOPHILS # (AUTO) 0.3 K/uL (0.0-0.7); EOSINOPHILS % (AUTO) 5.2 % (0.0-6.0); HEMATOCRIT 31 % (33-45); HEMOGLOBIN 10.6 g/dL (11.5-14.8); LYMPHOCYTES # (AUTO) 0.6 K/uL (0.8-4.8); LYMPHOCYTES % (AUTO) 10.1 % (20.0-44.0); MEAN CORPUSCULAR HEMOGLOBIN 33 PG (26.0-33.0); MEAN CORPUSCULAR HGB CONC 34 g/dl (31.0-36.0); MEAN CORPUSCULAR VOLUME 97 fL (82-100); MONOCYTES # (AUTO) 0.7 K/uL (0.1-1.30); MONOCYTES % (AUTO) 11.6 % (2.0-12.0); NEUTROPHILS # (AUTO) 4.1 K/uL (1.8-8.9); NEUTROPHILS % (AUTO) 72.5 % (43.0-81.0); PLATELET COUNT (AUTO) 139 K/uL (150-450); RED BLOOD CELL COUNT(AUTO) 3.22 MIL/uL (4.0-5.2); RED CELL DISTRIBUTION WIDTH 13.9 % (11.5-15.0); WHITE BLOOD COUNT (AUTO) 5.7 K/uL (4.3-11.0)
[2024-10-07 07:30] LABS: PROTHROMBIN TIME 65.3 SECS (9.2-11.1)
[2024-10-07 07:57] LABS: ALANINE AMINOTRANSFERASE 23 U/L (12-78); ALBUMIN 3.4 g/dL (3.4-5.0); ALKALINE PHOSPHATASE 118 U/L (46-116); ASPARTATE AMINOTRANSFERASE 30 U/L (15-37); BILIRUBIN,DIRECT 0.7 mg/dL (0.0-0.2); BILIRUBIN,TOTAL 1.3 mg/dL (0.2-1.0); CALCIUM, SERUM 8.8 mg/dL (8.5-10.1); CARBON DIOXIDE 35 mmol/L (21-32); CHLORIDE 99 mmol/L (98-107); CREATININE 1.3 mg/dL (0.6-1.3); GLUCOSE 104 mg/dL (74-106); LIPASE 350 U/L (16-77); NT-PRO BNP 4215 pg/mL (0-125); PHOSPHORUS 3.4 mg/dL (2.5-4.9); POTASSIUM 4.6 mmol/L (3.5-5.1); SODIUM SERUM 136 mmol/L (136-145); TOTAL PROTEIN, SERUM 7.2 g/dL (6.4-8.2); UREA NITROGEN, BLOOD 20 mg/dL (7-18)
[2024-10-07 08:00] VITALS: BP 105/48; TEMP 98.2
[2024-10-07] MEDS: PANTOPRAZOLE 40 MG VIAL IV SCH (08:08)
[2024-10-07] MEDS ORDERED: MULT-213 PO (10:39)
[2024-10-07] MEDS ORDERED: ACET325T53 PO (10:39)
[2024-10-07] MEDS ORDERED: METH500T6 PO (10:39)
[2024-10-07] MEDS ORDERED: SIME80TA15 PO (10:39)
[2024-10-07] MEDS ORDERED: DILT180C92 PO (10:39)
[2024-10-07] MEDS ORDERED: SACC250C9 PO (10:39)
[2024-10-07] MEDS ORDERED: PANT40TA49 PO (10:39)
[2024-10-07] MEDS ORDERED: LACT-15 PO (10:39)
[2024-10-07] MEDS ORDERED: DICY10CA13 PO (10:39)
[2024-10-07] MEDS ORDERED: ALPRAZOLAM 0.25 MG TABLET PO PRN (11:30)
[2024-10-07] MEDS ORDERED: METHOCARBAMOL (500MG) 500 MG TABLET PO PRN (11:30)
[2024-10-07] MEDS: BUMETANIDE (1 MG) 1 MG TABLET PO SCH (11:30)
[2024-10-07] MEDS ORDERED: PHYTONADIONE INJ 1 MG/0.5 ML AMPUL SQ ONE (12:00)
[2024-10-07] MEDS: PHYTONADIONE INJ 10 MG/1 ML AMPUL SQ ONE (14:33)
[2024-10-07 16:00] VITALS: BP 123/69; TEMP 98.5; O2SAT 98
[2024-10-07 20:00] VITALS: BP 119/65; TEMP 98.4; O2SAT 96
[2024-10-07] MEDS: ATORVASTATIN 40 MG TABLET PO SCH (21:21)
[2024-10-08 06:18] LABS: BASOPHILS % (AUTO) 0.9 % (0.0-2.0); EOSINOPHILS # (AUTO) 0.4 K/uL (0.0-0.7); EOSINOPHILS % (AUTO) 10.9 % (0.0-6.0); HEMATOCRIT 28 % (33-45); HEMOGLOBIN 9.6 g/dL (11.5-14.8); LYMPHOCYTES # (AUTO) 0.5 K/uL (0.8-4.8); LYMPHOCYTES % (AUTO) 13.6 % (20.0-44.0); MEAN CORPUSCULAR HEMOGLOBIN 33 PG (26.0-33.0); MEAN CORPUSCULAR HGB CONC 34 g/dl (31.0-36.0); MEAN CORPUSCULAR VOLUME 96 fL (82-100); MONOCYTES # (AUTO) 0.5 K/uL (0.1-1.30); MONOCYTES % (AUTO) 12.6 % (2.0-12.0); NEUTROPHILS # (AUTO) 2.5 K/uL (1.8-8.9); PLATELET COUNT (AUTO) 124 K/uL (150-450); RED BLOOD CELL COUNT(AUTO) 2.95 MIL/uL (4.0-5.2); RED CELL DISTRIBUTION WIDTH 13.7 % (11.5-15.0)
[2024-10-08 06:23] LABS: INR 1.91 (0.91-1.10); PROTHROMBIN TIME 19.4 SECS (9.2-11.1)
[2024-10-08 06:59] LABS: CALCIUM, SERUM 8.2 mg/dL (8.5-10.1); CREATININE 1.1 mg/dL (0.6-1.3); PHOSPHORUS 2.6 mg/dL (2.5-4.9); POTASSIUM 4.4 mmol/L (3.5-5.1)
[2024-10-08 08:00] VITALS: BP 102/53; TEMP 98.1; O2SAT 97
[2024-10-08] MEDS: PANTOPRAZOLE 40 MG TABLET.DR PO SCH (09:06)
[2024-10-08] MEDS: MULTIVIT W/MINERALS 1 TAB TABLET PO SCH (09:06)
[2024-10-08] MEDS: SPIRONOLACTONE 25 MG TABLET PO SCH (09:54)
[2024-10-08] MEDS: SIMETHICONE 80 MG TAB.CHEW PO PRN (14:28)
== END 2024-10-08 16:40 | DRG 432 ==
LOC: ER 19:42 → MED 23:25
PROVIDERS: ADMIT Nurse Practitioner Family; ATTEND Nurse Practitioner Acute Care
DX: K74.60 Unspecified cirrhosis of liver (principal); K85.90 Acute pancreatitis without necrosis or infection, unspecified; D68.59 Other primary thrombophilia; E46 Unspecified protein-calorie malnutrition; E87.1 Hypo-osmolality and hyponatremia; I13.0 Hypertensive heart and chronic kidney disease with heart failure and stage 1 through stage 4 chronic kidney disease, or unspecified chronic kidney disease; N17.9 Acute kidney failure, unspecified; G93.40 Encephalopathy, unspecified; K86.1 Other chronic pancreatitis; D68.9 Coagulation defect, unspecified; D63.8 Anemia in other chronic diseases classified elsewhere; E78.00 Pure hypercholesterolemia, unspecified; N18.9 Chronic kidney disease, unspecified; Z98.890 Other specified postprocedural states; Z90.49 Acquired absence of other specified parts of digestive tract; M81.0 Age-related osteoporosis without current pathological fracture; Z79.01 Long term (current) use of anticoagulants; Z79.899 Other long term (current) drug therapy; R73.9 Hyperglycemia, unspecified; E88.09 Other disorders of plasma-protein metabolism, not elsewhere classified; E86.1 Hypovolemia; E83.39 Other disorders of phosphorus metabolism; F41.9 Anxiety disorder, unspecified; G89.29 Other chronic pain; I48.91 Unspecified atrial fibrillation; I50.9 Heart failure, unspecified; E86.0 Dehydration
CPT/HCPCS: 36415; 80048-TC; 80076-TC; 81001; 82140-TC; 83690-TC; 83735-TC; 83880; 84100-TC; 84484-TC; 85025-TC; 85610-TC; 85730-TC; 86850; 86850-TC; 86870; 86880; 86900; 86901; 86905; 86906; A4223; G0378; J2270; J2405; J2470; J3430; J7030

== ENCOUNTER 2024-11-14 00:23 | Inpatient (IN) | payer MEDICARE, OTHER ==
[~2024-11-14] VITALS: Ht 147.3 cm; Wt 38.6 kg
[~2024-11-14 00:23] MED LIST changes: +ACET325T53 PO; +DICY10CA13 PO; +DILT180C92 PO; +LACT-15 PO; +METH500T6 PO; +MULT-213 PO; +PANT40TA49 PO; +SACC250C9 PO; +SIME80TA15 PO; -WARF-68 PO
[2024-11-14 02:18] LABS: BASOPHILS # (AUTO) 0.1 K/uL (0.0-0.2); BASOPHILS % (AUTO) 1.1 % (0.0-2.0); EOSINOPHILS % (AUTO) 17.1 % (0.0-6.0); HEMATOCRIT 32 % (33-45); HEMOGLOBIN 10.9 g/dL (11.5-14.8); LYMPHOCYTES # (AUTO) 1.2 K/uL (0.8-4.8); LYMPHOCYTES % (AUTO) 21.6 % (20.0-44.0); MEAN CORPUSCULAR HEMOGLOBIN 33 PG (26.0-33.0); MEAN CORPUSCULAR HGB CONC 34 g/dl (31.0-36.0); MEAN CORPUSCULAR VOLUME 95 fL (82-100); MONOCYTES # (AUTO) 0.5 K/uL (0.1-1.30); MONOCYTES % (AUTO) 9.6 % (2.0-12.0); NEUTROPHILS # (AUTO) 2.9 K/uL (1.8-8.9); NEUTROPHILS % (AUTO) 50.6 % (43.0-81.0); PLATELET COUNT (AUTO) 143 K/uL (150-450); RED BLOOD CELL COUNT(AUTO) 3.36 MIL/uL (4.0-5.2); RED CELL DISTRIBUTION WIDTH 15.3 % (11.5-15.0); WHITE BLOOD COUNT (AUTO) 5.7 K/uL (4.3-11.0)
[2024-11-14 02:27] LABS: CALCIUM, SERUM 10.2 mg/dL (8.5-10.1)
[2024-11-14 02:33] LABS: ALBUMIN 3.9 g/dL (3.4-5.0); BILIRUBIN,DIRECT 0.5 mg/dL (0.0-0.2); BILIRUBIN,TOTAL 1.1 mg/dL (0.2-1.0); TOTAL PROTEIN, SERUM 8.2 g/dL (6.4-8.2)
[2024-11-14 02:35] LABS: APPEARANCE,URINE CLEAR (CLEAR); BILIRUBIN,URINE NEGATIVE (NEGATIVE); BLOOD, URINE TRACE-INTA Ery/uL (NEGATIVE); COLOR,URINE YELLOW (YELLOW); KETONES,URINE NEGATIVE (NEGATIVE); LEUKOCYTE ESTERASE ,URINE NEGATIVE (NEGATIVE); NITRITE, URINE NEGATIVE (NEGATIVE); PROTEIN,URINE NEGATIVE (NEGATIVE); UGLUCOSE NEGATIVE (NEGATIVE); UROBILINOGEN,URINE 0.2 EU/dL (0.2)
[2024-11-14 02:40] LABS: ADD URINE CULTURE NO; BACTERIA,URINE Rare /HPF (None Seen); SQUAMOUS EPITHELIAL CELL,UR Few /HPF (None Seen)
[2024-11-14] MEDS: IV LR 1000 ML 1,000 ML BAG IV ONE (02:48)
[2024-11-14 04:47] LABS: CALCIUM, SERUM 9.6 mg/dL (8.5-10.1); CREATININE 1.7 mg/dL (0.6-1.3); POTASSIUM 4.7 mmol/L (3.5-5.1)
[2024-11-14] MEDS ORDERED: SIMETHICONE 80 MG TAB.CHEW PO PRN (05:30)
[2024-11-14] MEDS ORDERED: METHOCARBAMOL (500MG) 500 MG TABLET PO PRN (05:30)
[2024-11-14] MEDS ORDERED: MAG HYDROX/AL HYDROX/SIMETH 30 ML UDC PO PRN (05:30)
[2024-11-14] MEDS ORDERED: MAGNESIUM HYDROXIDE 30 ML UDC PO PRN (05:30)
[2024-11-14] MEDS ORDERED: ALPRAZOLAM 0.25 MG TABLET PO PRN (05:30)
[2024-11-14] MEDS ORDERED: DICYCLOMINE HCL 10 MG CAPSULE PO PRN (05:30)
[2024-11-14] MEDS ORDERED: ACETAMINOPHEN 325 MG TABLET PO PRN (05:30)
[2024-11-14 07:32] VITALS: O2SAT 98
[2024-11-14] MEDS ORDERED: METO5TAB87 PO (08:51)
[2024-11-14] MEDS ORDERED: NA P133E RC (08:51)
[2024-11-14] MEDS ORDERED: BISA10SU11 RC (08:51)
[2024-11-14] MEDS ORDERED: MELA5TAB PO (08:51)
[2024-11-14] MEDS ORDERED: ACET-2030 PO (08:51)
[2024-11-14] MEDS ORDERED: MAGN400O6 PO (08:51)
[2024-11-14] MEDS ORDERED: LOPE2TAB25 PO (08:51)
[2024-11-14] MEDS ORDERED: WARF3TAB59 PO (08:51)
[2024-11-14] MEDS ORDERED: ONDA-97 PO (08:51)
[2024-11-14] MEDS ORDERED: MIRT7.5T10 PO (08:51)
[2024-11-14] MEDS ORDERED: LACT10SO58 PO (08:51)
[2024-11-14] MEDS ORDERED: PSYL822P6 PO (08:51)
[2024-11-14 09:00] VITALS: BP 137/55; TEMP 97.7; O2SAT 97
[2024-11-14] MEDS ORDERED: PANTOPRAZOLE 40 MG VIAL IV SCH (09:00)
[2024-11-14] MEDS: ATENOLOL 50 MG TABLET PO SCH (09:25)
[2024-11-14] MEDS: PANTOPRAZOLE 40 MG TABLET.DR PO SCH (09:25)
[2024-11-14] MEDS: MULTIVIT W/MINERALS 1 TAB TABLET PO SCH (09:25)
[2024-11-14] MEDS: IV LR 1000 ML 1,000 ML IV ONE (09:29)
[2024-11-14] MEDS: DILTIAZEM HCL CD 180 MG PO SCH (09:30)
[2024-11-14] MEDS: LACTOBACILLUS RHAMNOSUS GG 1 EACH CAP.SPRINK PO SCH (09:31)
[2024-11-14] MEDS ORDERED: LACTULOSE 10 G/15 ML UDC (PYXIS) PO PRN (11:30)
[2024-11-14] MEDS: SENNOSIDES/DOCUSATE SODIUM 1 TAB TABLET PO SCH (12:04)
[2024-11-14] MEDS: LACTOSE-FREE FOOD 237 ML BOTTLE PO SCH (12:07)
[2024-11-14 16:00] VITALS: BP 130/67; TEMP 97.6; O2SAT 98
[2024-11-14 18:28] LABS: INR 2.74 (0.91-1.10); PROTHROMBIN TIME 27.2 SECS (9.2-11.1)
[2024-11-14] MEDS: WARFARIN SODIUM 1 MG TABLET PO SCH (18:45)
[2024-11-14 19:31] LABS: CREATININE, URINE 58.4 MG/DL (30.0-125.0); URINE TOTAL PROTEIN 9.9 mg/dL (0-11.9)
[2024-11-14 20:00] VITALS: BP 128/54; TEMP 97.9; O2SAT 99
[2024-11-14] MEDS: MIRTAZAPINE 15 MG TABLET PO SCH (21:43)
[2024-11-15 07:42] LABS: BASOPHILS # (AUTO) 0.1 K/uL (0.0-0.2); EOSINOPHILS # (AUTO) 0.9 K/uL (0.0-0.7); EOSINOPHILS % (AUTO) 15.6 % (0.0-6.0); HEMATOCRIT 32 % (33-45); HEMOGLOBIN 10.8 g/dL (11.5-14.8); LYMPHOCYTES # (AUTO) 1.1 K/uL (0.8-4.8); MEAN CORPUSCULAR HEMOGLOBIN 33 PG (26.0-33.0); MEAN CORPUSCULAR HGB CONC 34 g/dl (31.0-36.0); MEAN CORPUSCULAR VOLUME 97 fL (82-100); MONOCYTES # (AUTO) 0.6 K/uL (0.1-1.30); MONOCYTES % (AUTO) 10.1 % (2.0-12.0); NEUTROPHILS # (AUTO) 3.3 K/uL (1.8-8.9); NEUTROPHILS % (AUTO) 54.3 % (43.0-81.0); PLATELET COUNT (AUTO) 152 K/uL (150-450); RED CELL DISTRIBUTION WIDTH 15.6 % (11.5-15.0)
[2024-11-15 08:00] VITALS: BP 132/56; TEMP 98.6; O2SAT 99
[2024-11-15 08:27] LABS: CALCIUM, SERUM 9.2 mg/dL (8.5-10.1); CREATININE 1.5 mg/dL (0.6-1.3); MAGNESIUM 2.4 mg/dL (1.8-2.4); PHOSPHORUS 3.8 mg/dL (2.5-4.9); POTASSIUM 5.6 mmol/L (3.5-5.1)
[2024-11-15] MEDS: SPIRONOLACTONE 25 MG TABLET PO SCH (08:38)
[2024-11-15] MEDS: SODIUM POLYSTYRENE SULFONATE 15 G/60 ML BOTTLE PO ONE (09:43)
[2024-11-15] MEDS: SODIUM ZIRCONIUM CYCLOSILICATE 10 GM POWD.PACK PO ONE (11:39)
[2024-11-15] MEDS: ONDANSETRON HCL/PF 4 MG/2 ML VIAL IVP PRN (11:54)
[2024-11-15 13:06] LABS: INR 3.23 (0.91-1.10); PROTHROMBIN TIME 31.7 SECS (9.2-11.1)
[2024-11-15 16:16] VITALS: BP 140/68; TEMP 98.2; O2SAT 99
[2024-11-15 16:27] LABS: CALCIUM, SERUM 8.9 mg/dL (8.5-10.1); CREATININE 1.4 mg/dL (0.6-1.3); POTASSIUM 4.5 mmol/L (3.5-5.1)
[2024-11-15 20:00] VITALS: BP 129/54; TEMP 98.2; O2SAT 98
[2024-11-16 07:00] VITALS: BP 107/83; TEMP 98.1; O2SAT 100
[2024-11-16 07:22] LABS: PROTHROMBIN TIME 41.4 SECS (9.2-11.1)
[2024-11-16 07:37] LABS: EOSINOPHILS # (AUTO) 0.9 K/uL (0.0-0.7); EOSINOPHILS % (AUTO) 20.4 % (0.0-6.0); HEMATOCRIT 29 % (33-45); LYMPHOCYTES # (AUTO) 0.9 K/uL (0.8-4.8); LYMPHOCYTES % (AUTO) 20.9 % (20.0-44.0); MEAN CORPUSCULAR HEMOGLOBIN 33 PG (26.0-33.0); MEAN CORPUSCULAR HGB CONC 35 g/dl (31.0-36.0); MEAN CORPUSCULAR VOLUME 96 fL (82-100); MONOCYTES # (AUTO) 0.5 K/uL (0.1-1.30); NEUTROPHILS % (AUTO) 46.7 % (43.0-81.0); PLATELET COUNT (AUTO) 117 K/uL (150-450); RED CELL DISTRIBUTION WIDTH 15.2 % (11.5-15.0); WHITE BLOOD COUNT (AUTO) 4.4 K/uL (4.3-11.0)
[2024-11-16 07:47] LABS: CREATININE 1.1 mg/dL (0.6-1.3); POTASSIUM 4.2 mmol/L (3.5-5.1)
[2024-11-16 07:51] LABS: INR 4.3 (0.91-1.10)
[2024-11-16 08:21] LABS: MAGNESIUM 2.1 mg/dL (1.8-2.4); PHOSPHORUS 3.3 mg/dL (2.5-4.9)
[2024-11-16 09:04] LABS: EOSINOPHILS % (MANUAL) 13 % (0-4); LYMPHOCYTES % (MANUAL) 20 % (16-48); MONOCYTES % (MANUAL) 9 % (0-11.0); NEUTROPHILS % (MANUAL) 58 (42-76); PLATELET ESTIMATE DECREASED
[2024-11-16 16:00] VITALS: BP_SYST 117; BP_SYST 127; BP_DIAS 51; BP_DIAS 65; TEMP 97.9; TEMP 98.1; O2SAT 95; O2SAT 99
[2024-11-16 20:00] VITALS: BP 119/60; TEMP 98.1; O2SAT 98
[2024-11-17 07:00] VITALS: BP 139/51; TEMP 98.2; O2SAT 98
[2024-11-17 07:40] LABS: BASOPHILS % (AUTO) 0.9 % (0.0-2.0); EOSINOPHILS # (AUTO) 1.2 K/uL (0.0-0.7); EOSINOPHILS % (AUTO) 23.3 % (0.0-6.0); HEMATOCRIT 30 % (33-45); HEMOGLOBIN 9.9 g/dL (11.5-14.8); LYMPHOCYTES # (AUTO) 0.8 K/uL (0.8-4.8); LYMPHOCYTES % (AUTO) 14.7 % (20.0-44.0); MEAN CORPUSCULAR HEMOGLOBIN 32 PG (26.0-33.0); MEAN CORPUSCULAR HGB CONC 33 g/dl (31.0-36.0); MEAN CORPUSCULAR VOLUME 97 fL (82-100); MONOCYTES # (AUTO) 0.5 K/uL (0.1-1.30); MONOCYTES % (AUTO) 8.8 % (2.0-12.0); NEUTROPHILS # (AUTO) 2.8 K/uL (1.8-8.9); NEUTROPHILS % (AUTO) 52.3 % (43.0-81.0); PLATELET COUNT (AUTO) 113 K/uL (150-450); RED BLOOD CELL COUNT(AUTO) 3.09 MIL/uL (4.0-5.2); RED CELL DISTRIBUTION WIDTH 15.1 % (11.5-15.0); WHITE BLOOD COUNT (AUTO) 5.3 K/uL (4.3-11.0)
[2024-11-17 08:27] LABS: CALCIUM, SERUM 8.7 mg/dL (8.5-10.1); CREATININE 1.1 mg/dL (0.6-1.3); POTASSIUM 4.3 mmol/L (3.5-5.1)
[2024-11-17 08:49] VITALS: BP 130/51
[2024-11-17 12:24] LABS: INR 3.98 (0.91-1.10); PROTHROMBIN TIME 38.5 SECS (9.2-11.1)
== END 2024-11-17 13:54 | DRG 438 ==
LOC: ER 00:25 → MED 05:39
PROVIDERS: ADMIT Nurse Practitioner Acute Care; ATTEND Nurse Practitioner Acute Care
DX: K85.90 Acute pancreatitis without necrosis or infection, unspecified (principal); N17.0 Acute kidney failure with tubular necrosis; I13.0 Hypertensive heart and chronic kidney disease with heart failure and stage 1 through stage 4 chronic kidney disease, or unspecified chronic kidney disease; E87.1 Hypo-osmolality and hyponatremia; E86.0 Dehydration; K86.1 Other chronic pancreatitis; I50.9 Heart failure, unspecified; D69.6 Thrombocytopenia, unspecified; E78.00 Pure hypercholesterolemia, unspecified; I48.91 Unspecified atrial fibrillation; N18.9 Chronic kidney disease, unspecified; Z90.49 Acquired absence of other specified parts of digestive tract; Z98.890 Other specified postprocedural states; M81.0 Age-related osteoporosis without current pathological fracture; Z98.891 History of uterine scar from previous surgery; Z79.899 Other long term (current) drug therapy; M89.8X9 Other specified disorders of bone, unspecified site; E87.5 Hyperkalemia; D64.9 Anemia, unspecified; R79.1 Abnormal coagulation profile; K59.00 Constipation, unspecified; Z79.01 Long term (current) use of anticoagulants; T50.0X5A Adverse effect of mineralocorticoids and their antagonists, initial encounter; Y92.129 Unspecified place in nursing home as the place of occurrence of the external cause
CPT/HCPCS: 36415; 71045-TC; 76770-TC; 80048-TC; 80076-TC; 81001; 82570-TC; 83690-TC; 83735-TC; 84100-TC; 84300-TC; 85025-TC; 85610-TC; 87081-TC; A4223; G0378; J2405; J3490; J7030; J7120

== ENCOUNTER 2024-11-27 10:04 | Inpatient (IN) | payer MEDICARE, OTHER ==
[~2024-11-27] VITALS: Ht 149.9 cm; Wt 47.6 kg
[~2024-11-27 10:04] MED LIST changes: +ACET-2030 PO; +BISA10SU11 RC; -DICY10CA13 PO; -LACT-15 PO; +LACT10SO58 PO; +LOPE2TAB25 PO; +MAGN400O6 PO; +MELA5TAB PO; +METO5TAB87 PO; +MIRT7.5T10 PO; +NA P133E RC; +ONDA-97 PO; +PSYL822P6 PO; +WARF3TAB59 PO
[2024-11-27] MEDS: PANTOPRAZOLE 40 MG VIAL IV ONE (10:30)
[2024-11-27] MEDS: IV NS 0.9% 1,000 ML BAG IV ONE (10:30)
[2024-11-27] MEDS: ONDANSETRON HCL/PF 4 MG/2 ML VIAL IVP ONE (10:30)
[2024-11-27] MEDS ORDERED: ONDANSETRON HCL/PF 4 MG/2 ML VIAL ONE (10:31)
[2024-11-27] MEDS ORDERED: PANTOPRAZOLE 40 MG VIAL ONE (10:31)
[2024-11-27] MEDS ORDERED: HYDROMORPHONE 1 MG/1 ML DISP.SYRIN ONE (10:32)
[2024-11-27] MEDS: HYDROMORPHONE INJ 2 MG/ML DISP.SYRIN IV ONE (11:09)
[2024-11-27] MEDS ORDERED: SPIR50TA5 PO (11:26)
[2024-11-27] MEDS ORDERED: BUME0.5T5 PO (11:26)
[2024-11-27 11:48] LABS: APPEARANCE,URINE CLEAR (CLEAR); BILIRUBIN,URINE NEGATIVE (NEGATIVE); BLOOD, URINE 2+ Ery/uL (NEGATIVE); COLOR,URINE YELLOW (YELLOW); KETONES,URINE NEGATIVE (NEGATIVE); LEUKOCYTE ESTERASE ,URINE NEGATIVE (NEGATIVE); NITRITE, URINE NEGATIVE (NEGATIVE); PROTEIN,URINE NEGATIVE (NEGATIVE); UGLUCOSE NEGATIVE (NEGATIVE)
[2024-11-27 11:54] LABS: BASOPHILS % (AUTO) 0.6 % (0.0-2.0); EOSINOPHILS # (AUTO) 0.1 K/uL (0.0-0.7); EOSINOPHILS % (AUTO) 1.1 % (0.0-6.0); HEMATOCRIT 33 % (33-45); HEMOGLOBIN 10.9 g/dL (11.5-14.8); LYMPHOCYTES # (AUTO) 0.6 K/uL (0.8-4.8); LYMPHOCYTES % (AUTO) 10.3 % (20.0-44.0); MEAN CORPUSCULAR HEMOGLOBIN 32 PG (26.0-33.0); MEAN CORPUSCULAR HGB CONC 34 g/dl (31.0-36.0); MEAN CORPUSCULAR VOLUME 96 fL (82-100); MONOCYTES # (AUTO) 0.5 K/uL (0.1-1.30); MONOCYTES % (AUTO) 9.2 % (2.0-12.0); NEUTROPHILS # (AUTO) 4.4 K/uL (1.8-8.9); NEUTROPHILS % (AUTO) 78.8 % (43.0-81.0); PLATELET COUNT (AUTO) 159 K/uL (150-450); RED CELL DISTRIBUTION WIDTH 15.5 % (11.5-15.0); WHITE BLOOD COUNT (AUTO) 5.6 K/uL (4.3-11.0)
[2024-11-27 11:58] LABS: CALCIUM, SERUM 9.7 mg/dL (8.5-10.1); CREATININE 1.9 mg/dL (0.6-1.3); POTASSIUM 5.7 mmol/L (3.5-5.1)
[2024-11-27 11:59] LABS: ADD URINE CULTURE YES; BACTERIA,URINE Few /HPF (None Seen); MUCUS,URINE Few /LPF (None Seen)
[2024-11-27 12:12] LABS: ALBUMIN 3.6 g/dL (3.4-5.0); BILIRUBIN,DIRECT 0.8 mg/dL (0.0-0.2); BILIRUBIN,TOTAL 1.4 mg/dL (0.2-1.0); TOTAL PROTEIN, SERUM 8.3 g/dL (6.4-8.2)
[2024-11-27 13:00] VITALS: O2SAT 98
[2024-11-27] MEDS ORDERED: SODIUM ZIRCONIUM CYCLOSILICATE 5 GM POWD.PACK ONE (13:30)
[2024-11-27] MEDS: SODIUM ZIRCONIUM CYCLOSILICATE 5 GM POWD.PACK PO ONE (13:33)
[2024-11-27 16:29] VITALS: BP 115/58; TEMP 97.7; O2SAT 95
[2024-11-27] MEDS: ENOXAPARIN SODIUM 30 MG/0.3 ML DISP.SYRIN SQ SCH (17:45)
[2024-11-27 20:00] VITALS: BP 108/44; TEMP 98.2; O2SAT 99
[2024-11-28 05:53] LABS: EOSINOPHILS # (AUTO) 0.3 K/uL (0.0-0.7); EOSINOPHILS % (AUTO) 7.9 % (0.0-6.0); HEMATOCRIT 30 % (33-45); HEMOGLOBIN 9.8 g/dL (11.5-14.8); LYMPHOCYTES # (AUTO) 0.6 K/uL (0.8-4.8); MEAN CORPUSCULAR HEMOGLOBIN 32 PG (26.0-33.0); MEAN CORPUSCULAR HGB CONC 33 g/dl (31.0-36.0); MEAN CORPUSCULAR VOLUME 96 fL (82-100); MONOCYTES # (AUTO) 0.6 K/uL (0.1-1.30); MONOCYTES % (AUTO) 13.8 % (2.0-12.0); NEUTROPHILS # (AUTO) 2.6 K/uL (1.8-8.9); NEUTROPHILS % (AUTO) 63.3 % (43.0-81.0); PLATELET COUNT (AUTO) 124 K/uL (150-450); RED BLOOD CELL COUNT(AUTO) 3.09 MIL/uL (4.0-5.2); RED CELL DISTRIBUTION WIDTH 15.5 % (11.5-15.0); WHITE BLOOD COUNT (AUTO) 4.1 K/uL (4.3-11.0)
[2024-11-28 06:21] LABS: ALBUMIN 2.9 g/dL (3.4-5.0); BILIRUBIN,TOTAL 1.2 mg/dL (0.2-1.0); CREATININE 1.3 mg/dL (0.6-1.3); POTASSIUM 4.6 mmol/L (3.5-5.1); TOTAL PROTEIN, SERUM 6.8 g/dL (6.4-8.2)
[2024-11-28 08:16] VITALS: BP 126/65; TEMP 98.1; O2SAT 97
[2024-11-28] MEDS ORDERED: METHOCARBAMOL (500MG) 500 MG TABLET PO PRN (10:00)
[2024-11-28] MEDS ORDERED: SIMETHICONE 80 MG TAB.CHEW PO PRN (10:00)
[2024-11-28] MEDS ORDERED: ALPRAZOLAM 0.25 MG TABLET PO PRN (10:00)
[2024-11-28] MEDS ORDERED: MAGNESIUM HYDROXIDE 30 ML UDC PO PRN (10:30)
[2024-11-28] MEDS ORDERED: ACETAMINOPHEN 325 MG TABLET PO PRN (10:30)
[2024-11-28] MEDS ORDERED: MAG HYDROX/AL HYDROX/SIMETH 30 ML UDC PO PRN (10:30)
[2024-11-28] MEDS ORDERED: Z GUARD REMEDY 4 OZ OINT TP PRN (10:30)
[2024-11-28] MEDS ORDERED: ONDANSETRON HCL/PF 4 MG/2 ML VIAL IVP PRN (10:30)
[2024-11-28 12:26] LABS: INR 2.07 (0.91-1.10); PROTHROMBIN TIME 20.9 SECS (9.2-11.1)
[2024-11-28 16:00] VITALS: BP 138/70; TEMP 98; O2SAT 96
[2024-11-28] MEDS: METOCLOPRAMIDE HCL 10 MG/10 ML UDC PO SCH (16:59)
[2024-11-28] MEDS: WARFARIN SODIUM 2.5 MG TABLET PO SCH (17:06)
[2024-11-28 20:00] VITALS: BP 125/63; TEMP 97.9; TEMP 98.3; O2SAT 98
[2024-11-28] MEDS: MIRTAZAPINE 15 MG TABLET PO SCH (21:32)
[2024-11-29 06:56] LABS: BASOPHILS % (AUTO) 1.2 % (0.0-2.0); EOSINOPHILS # (AUTO) 0.6 K/uL (0.0-0.7); EOSINOPHILS % (AUTO) 14.1 % (0.0-6.0); HEMATOCRIT 32 % (33-45); HEMOGLOBIN 10.7 g/dL (11.5-14.8); LYMPHOCYTES # (AUTO) 0.8 K/uL (0.8-4.8); LYMPHOCYTES % (AUTO) 20.1 % (20.0-44.0); MEAN CORPUSCULAR HEMOGLOBIN 33 PG (26.0-33.0); MEAN CORPUSCULAR HGB CONC 34 g/dl (31.0-36.0); MEAN CORPUSCULAR VOLUME 96 fL (82-100); MONOCYTES # (AUTO) 0.4 K/uL (0.1-1.30); MONOCYTES % (AUTO) 11.2 % (2.0-12.0); NEUTROPHILS # (AUTO) 2.1 K/uL (1.8-8.9); NEUTROPHILS % (AUTO) 53.4 % (43.0-81.0); PLATELET COUNT (AUTO) 124 K/uL (150-450); RED BLOOD CELL COUNT(AUTO) 3.27 MIL/uL (4.0-5.2); RED CELL DISTRIBUTION WIDTH 15.3 % (11.5-15.0)
[2024-11-29 07:00] LABS: CALCIUM, SERUM 9.1 mg/dL (8.5-10.1); CREATININE 0.9 mg/dL (0.6-1.3); MAGNESIUM 2.1 mg/dL (1.8-2.4); PHOSPHORUS 2.7 mg/dL (2.5-4.9); POTASSIUM 4.2 mmol/L (3.5-5.1)
[2024-11-29 07:16] LABS: INR 2.29 (0.91-1.10)
[2024-11-29 07:30] VITALS: BP 129/63; TEMP 98.1; O2SAT 98
[2024-11-29] MEDS: PANTOPRAZOLE 40 MG TABLET.DR PO SCH (08:13)
[2024-11-29] MEDS: MULTIVIT W/MINERALS 1 TAB TABLET PO SCH (08:13)
[2024-11-29] MEDS: ATENOLOL 50 MG TABLET PO SCH (08:14)
[2024-11-29] MEDS: DILTIAZEM HCL CD 180 MG PO SCH (08:14)
[2024-11-29] MEDS: IV NS 0.9% 1,000 ML IV PRN (08:43)
[2024-11-29] MEDS: LACTULOSE 10 G/15 ML UDC (PYXIS) PO PRN (15:10)
[2024-11-29] MEDS ORDERED: IOHEXOL-350 100 ML VIAL IV ONE (16:33)
[2024-11-29] MEDS ORDERED: IV NS 0.9% 250 ML IV ONE (16:34)
[2024-11-29] MEDS ORDERED: CT SWABBABLE VALVE TRANS SET 1 EA INFUS.SET MC ONE (16:34)
[2024-11-29 20:00] VITALS: BP 115/73; TEMP 97.7; O2SAT 99
[2024-11-30 06:33] LABS: BASOPHILS # (AUTO) 0.1 K/uL (0.0-0.2); BASOPHILS % (AUTO) 1.3 % (0.0-2.0); EOSINOPHILS # (AUTO) 0.3 K/uL (0.0-0.7); HEMATOCRIT 31 % (33-45); HEMOGLOBIN 10.3 g/dL (11.5-14.8); LYMPHOCYTES # (AUTO) 0.7 K/uL (0.8-4.8); LYMPHOCYTES % (AUTO) 14.4 % (20.0-44.0); MEAN CORPUSCULAR HEMOGLOBIN 31 PG (26.0-33.0); MEAN CORPUSCULAR HGB CONC 33 g/dl (31.0-36.0); MEAN CORPUSCULAR VOLUME 95 fL (82-100); MONOCYTES # (AUTO) 0.5 K/uL (0.1-1.30); NEUTROPHILS # (AUTO) 3.1 K/uL (1.8-8.9); NEUTROPHILS % (AUTO) 67.3 % (43.0-81.0); PLATELET COUNT (AUTO) 141 K/uL (150-450); RED BLOOD CELL COUNT(AUTO) 3.29 MIL/uL (4.0-5.2); RED CELL DISTRIBUTION WIDTH 15.2 % (11.5-15.0); WHITE BLOOD COUNT (AUTO) 4.7 K/uL (4.3-11.0)
[2024-11-30 06:42] LABS: INR 3.62 (0.91-1.10); PROTHROMBIN TIME 35.3 SECS (9.2-11.1)
[2024-11-30 07:02] LABS: CREATININE 0.9 mg/dL (0.6-1.3); POTASSIUM 4.5 mmol/L (3.5-5.1)
[2024-11-30 07:30] VITALS: BP 123/67; TEMP 97.9; O2SAT 100
[2024-11-30 14:36] LABS: ABG BASE EXCESS 2.4 mmol/L (-2.0-3.0); ABG OXYGEN SATURATION 88.3 % (94.0-98.0); ABG PH 7.398 (7.350-7.450); ABG PO2 54.2 mmHg (83.0-108.0); ABG TOTAL HEMOGLOBIN 11.5 G/dL (12.0-16.0); COHb 0.7 % (0.5-1.5); MetHb 0.3 % (0.0-1.5); O2Hb 87.4 % (94.0-97.0); SITE, ABG LEFT RADIAL
[2024-11-30] MEDS: BISACODYL SUPP (10 MG) 10 MG/SUPP.RECT SUPP.RECT RC PRN (14:38)
[2024-11-30] MEDS: WARFARIN SODIUM 2.5 MG TABLET PO SCH (18:04)
[2024-11-30 20:00] VITALS: BP 132/62; TEMP 97.7; O2SAT 98
[2024-12-01 07:02] LABS: INR 2.34 (0.91-1.10); PROTHROMBIN TIME 23.5 SECS (9.2-11.1)
[2024-12-01 07:13] LABS: CALCIUM, SERUM 9.2 mg/dL (8.5-10.1); POTASSIUM 4.7 mmol/L (3.5-5.1)
[2024-12-01 07:15] LABS: OCCULT BLOOD STOOL NEGATIVE (NEGATIVE)
[2024-12-01 08:43] VITALS: BP 117/62; TEMP 98.5; O2SAT 97
[2024-12-01] MEDS: ENSURE ENLIVE 237 ML LIQUID (VANILLA) PO SCH (09:00)
[2024-12-01] MEDS: FUROSEMIDE 20 MG/2 ML VIAL IV SCH (09:19)
[2024-12-01] MEDS ORDERED: NEPRO VAN 237 ML CAN PO PRN (11:00)
[2024-12-01] MEDS ORDERED: PANT40TA49 PO (13:45)
[2024-12-01] MEDS ORDERED: DILT180C66 PO (13:45)
[2024-12-01] MEDS ORDERED: METO5SOL2 PO (13:45)
[2024-12-01] MEDS ORDERED: Multivit W/Minerals PO (13:45)
[2024-12-01] MEDS ORDERED: METH500T6 PO (13:45)
[2024-12-01] MEDS ORDERED: LACT10SO58 PO (13:45)
[2024-12-01] MEDS ORDERED: BISA10SU61 RC (13:45)
[2024-12-01] MEDS ORDERED: MIRT-121 PO (13:45)
[2024-12-01] MEDS ORDERED: ATEN50TA PO (13:45)
[2024-12-01] MEDS ORDERED: WARF2.5T8 PO (13:45)
[2024-12-01] MEDS ORDERED: SIME80TA72 PO (13:45)
[2024-12-01] MEDS ORDERED: NUT.237L67 PO (13:45)
[2024-12-01] MEDS ORDERED: WARF1TAB86 PO (14:16)
[2024-12-01 16:56] VITALS: BP 117/62; TEMP 98.9; O2SAT 97
[2024-12-01] MEDS: NEPRO VAN 237 ML CAN PO SCH (17:00)
[2024-12-01 17:01] VITALS: BP 123/67; TEMP 97.9; O2SAT 94
[2024-12-01] MEDS: WARFARIN SODIUM 1 MG TABLET PO SCH (17:33)
[2024-12-01 20:00] VITALS: BP 112/51; TEMP 97.5; O2SAT 97
[2024-12-02 07:45] LABS: PROTHROMBIN TIME 65.6 SECS (9.2-11.1)
[2024-12-02 07:57] LABS: INR 7.03 (0.91-1.10)
[2024-12-02 07:59] LABS: CALCIUM, SERUM 9.2 mg/dL (8.5-10.1); CREATININE 1.1 mg/dL (0.6-1.3); POTASSIUM 4.1 mmol/L (3.5-5.1)
[2024-12-02 08:00] VITALS: BP 117/73; TEMP 98.3; O2SAT 100
[2024-12-02 12:04] LABS: PARTIAL THROMBOPLASTIN TIME 43.6 SEC (24.3-34.3); PROTHROMBIN TIME 66.9 SECS (9.2-11.1)
[2024-12-02 12:09] LABS: INR 7.18 (0.91-1.10)
[2024-12-02] MEDS ORDERED: LACTULOSE 10 G/15 ML UDC (PYXIS) PO PRN (14:00)
[2024-12-02] MEDS: LACTULOSE 10 G/15 ML UDC (PYXIS) PO ONE (14:26)
[2024-12-02 16:00] VITALS: BP 141/89; TEMP 98.4; O2SAT 98
[2024-12-02 20:00] VITALS: BP 115/67; TEMP 98.1; O2SAT 92
[2024-12-03 07:32] LABS: PROTHROMBIN TIME 71.3 SECS (9.2-11.1)
[2024-12-03 07:38] LABS: CALCIUM, SERUM 8.7 mg/dL (8.5-10.1); CREATININE 1.2 mg/dL (0.6-1.3)
[2024-12-03 07:52] LABS: INR 7.69 (0.91-1.10)
[2024-12-03 08:30] VITALS: BP 116/60; TEMP 98.4; O2SAT 96
[2024-12-03] MEDS: FAMOTIDINE (20 MG) 20 MG TABLET PO SCH (11:54)
[2024-12-03 16:00] VITALS: BP 136/80; TEMP 98.1; O2SAT 97
[2024-12-03 21:04] VITALS: BP 122/60; TEMP 98.4; O2SAT 97
[2024-12-04 07:13] LABS: BASOPHILS % (AUTO) 0.4 % (0.0-2.0); EOSINOPHILS # (AUTO) 0.1 K/uL (0.0-0.7); EOSINOPHILS % (AUTO) 2.8 % (0.0-6.0); HEMATOCRIT 30 % (33-45); HEMOGLOBIN 10.1 g/dL (11.5-14.8); LYMPHOCYTES # (AUTO) 0.4 K/uL (0.8-4.8); MEAN CORPUSCULAR HEMOGLOBIN 32 PG (26.0-33.0); MEAN CORPUSCULAR HGB CONC 34 g/dl (31.0-36.0); MEAN CORPUSCULAR VOLUME 94 fL (82-100); MONOCYTES # (AUTO) 0.5 K/uL (0.1-1.30); MONOCYTES % (AUTO) 9.1 % (2.0-12.0); NEUTROPHILS % (AUTO) 79.7 % (43.0-81.0); PLATELET COUNT (AUTO) 166 K/uL (150-450); RED BLOOD CELL COUNT(AUTO) 3.18 MIL/uL (4.0-5.2); RED CELL DISTRIBUTION WIDTH 15.2 % (11.5-15.0)
[2024-12-04 07:30] LABS: INR 4.92 (0.91-1.10)
[2024-12-04 07:49] LABS: CALCIUM, SERUM 9.2 mg/dL (8.5-10.1); CREATININE 1.1 mg/dL (0.6-1.3)
[2024-12-04 08:14] VITALS: BP 138/74; TEMP 98.2; O2SAT 100
[2024-12-04] MEDS: POTASSIUM CHLORIDE 20 MEQ TAB.PRT.SR PO SCH (08:49)
[2024-12-04] MEDS: FUROSEMIDE 100 MG/10 ML VIAL IV SCH (08:49)
[2024-12-04] MEDS ORDERED: ZOLPIDEM TARTRATE 5 MG TABLET PO PRN (15:30)
[2024-12-04 16:06] VITALS: BP 124/58; TEMP 97.4; O2SAT 95
[2024-12-04 20:00] VITALS: BP 114/71; TEMP 98.2; O2SAT 97
[2024-12-05] VITALS: BP 101/53; TEMP 97.9; O2SAT 97
[2024-12-05 04:00] VITALS: BP 119/79; TEMP 97.9; O2SAT 99
[2024-12-05 06:57] LABS: INR 3.33 (0.91-1.10); PROTHROMBIN TIME 32.6 SECS (9.2-11.1)
[2024-12-05 07:00] VITALS: BP 141/76; TEMP 97.7; O2SAT 97
[2024-12-05 07:15] LABS: BASOPHILS % (AUTO) 0.6 % (0.0-2.0); EOSINOPHILS # (AUTO) 0.3 K/uL (0.0-0.7); EOSINOPHILS % (AUTO) 6.9 % (0.0-6.0); HEMATOCRIT 31 % (33-45); HEMOGLOBIN 10.4 g/dL (11.5-14.8); LYMPHOCYTES # (AUTO) 0.4 K/uL (0.8-4.8); MEAN CORPUSCULAR HEMOGLOBIN 31 PG (26.0-33.0); MEAN CORPUSCULAR HGB CONC 33 g/dl (31.0-36.0); MEAN CORPUSCULAR VOLUME 95 fL (82-100); MONOCYTES # (AUTO) 0.5 K/uL (0.1-1.30); NEUTROPHILS # (AUTO) 3.5 K/uL (1.8-8.9); NEUTROPHILS % (AUTO) 72.5 % (43.0-81.0); PLATELET COUNT (AUTO) 173 K/uL (150-450); RED BLOOD CELL COUNT(AUTO) 3.31 MIL/uL (4.0-5.2); RED CELL DISTRIBUTION WIDTH 15.4 % (11.5-15.0); WHITE BLOOD COUNT (AUTO) 4.9 K/uL (4.3-11.0)
[2024-12-05 07:26] LABS: ALBUMIN 3.4 g/dL (3.4-5.0); BILIRUBIN,TOTAL 1.2 mg/dL (0.2-1.0); CALCIUM, SERUM 8.9 mg/dL (8.5-10.1); CREATININE 1.3 mg/dL (0.6-1.3); MAGNESIUM 2.4 mg/dL (1.8-2.4); PHOSPHORUS 2.9 mg/dL (2.5-4.9); TOTAL PROTEIN, SERUM 7.4 g/dL (6.4-8.2)
[2024-12-05 07:48] LABS: POTASSIUM 3.6 mmol/L (3.5-5.1)
[2024-12-05] MEDS ORDERED: FAMO20TA80 PO (11:35)
[2024-12-05] MEDS ORDERED: LACT10SO58 PO (11:35)
[2024-12-05 16:00] VITALS: BP 130/96; TEMP 97.5; O2SAT 99
== END 2024-12-05 18:00 | DRG 438 ==
LOC: ER 10:14 → MED 12:58
PROVIDERS: ADMIT Nurse Practitioner Acute Care; ATTEND Nurse Practitioner Acute Care
DX: K85.90 Acute pancreatitis without necrosis or infection, unspecified (principal); E43 Unspecified severe protein-calorie malnutrition; N17.0 Acute kidney failure with tubular necrosis; I13.0 Hypertensive heart and chronic kidney disease with heart failure and stage 1 through stage 4 chronic kidney disease, or unspecified chronic kidney disease; I82.412 Acute embolism and thrombosis of left femoral vein; I50.42 Chronic combined systolic (congestive) and diastolic (congestive) heart failure; D68.9 Coagulation defect, unspecified; R64 Cachexia; K31.84 Gastroparesis; K86.1 Other chronic pancreatitis; E86.9 Volume depletion, unspecified; E86.0 Dehydration; D69.6 Thrombocytopenia, unspecified; E86.1 Hypovolemia; E87.5 Hyperkalemia; I48.91 Unspecified atrial fibrillation; N18.9 Chronic kidney disease, unspecified; E78.00 Pure hypercholesterolemia, unspecified; K21.9 Gastro-esophageal reflux disease without esophagitis; M19.90 Unspecified osteoarthritis, unspecified site; K64.9 Unspecified hemorrhoids; Z95.2 Presence of prosthetic heart valve; Z98.890 Other specified postprocedural states; Z98.891 History of uterine scar from previous surgery; Z90.49 Acquired absence of other specified parts of digestive tract; Z79.51 Long term (current) use of inhaled steroids; Z79.01 Long term (current) use of anticoagulants; Z79.899 Other long term (current) drug therapy; M81.0 Age-related osteoporosis without current pathological fracture; K74.60 Unspecified cirrhosis of liver; Z95.0 Presence of cardiac pacemaker; I05.0 Rheumatic mitral stenosis; I27.20 Pulmonary hypertension, unspecified; D63.8 Anemia in other chronic diseases classified elsewhere
CPT/HCPCS: 36415; 36600; 71045-TC; 80048-TC; 80053-TC; 80076-TC; 81001; 82272-TC; 82803-TC; 83690-TC; 83735-TC; 84100-TC; 85025-TC; 85610-TC; 85730-TC; 93307-TC; 93970-TC; 97110-TC; 97116-TC; 97530-TC; A4223; G0378; J1171; J1650; J1940; J2405; J2470; J7030; J7050; J8597; Q9967

== ENCOUNTER 2025-01-02 22:04 | Inpatient (IN) | payer MEDICARE, OTHER ==
[~2025-01-02] VITALS: Ht 152.4 cm; Wt 44.9 kg
[~2025-01-02 22:04] MED LIST changes: -ACET-2030 PO; -ACET325T53 PO; -ATEN100T PO; +ATEN50TA PO; -ATOR40TA PO; +BISA10SU61 RC; -BUME1TAB8 PO; +DILT180C66 PO; -DILT180C92 PO; +FAMO20TA80 PO; -LOPE2TAB25 PO; -MAGN400O6 PO; +METO5SOL2 PO; -METO5TAB87 PO; +MIRT-121 PO; -MIRT7.5T10 PO; -MULT-213 PO; +Multivit W/Minerals PO; -NA P133E RC; +NUT.237L67 PO; -ONDA-97 PO; -POTA10CA43 PO; -SACC250C9 PO; -SIME80TA15 PO; +SIME80TA72 PO; -SPIR100T5 PO; +SPIR50TA5 PO; -WARF3TAB59 PO
[2025-01-02 23:09] LABS: BASOPHILS % (AUTO) 0.4 % (0.0-2.0); EOSINOPHILS # (AUTO) 0.3 K/uL (0.0-0.7); EOSINOPHILS % (AUTO) 5.7 % (0.0-6.0); HEMATOCRIT 32 % (33-45); HEMOGLOBIN 10.2 g/dL (11.5-14.8); LYMPHOCYTES # (AUTO) 0.7 K/uL (0.8-4.8); LYMPHOCYTES % (AUTO) 11.3 % (20.0-44.0); MEAN CORPUSCULAR HEMOGLOBIN 31 PG (26.0-33.0); MEAN CORPUSCULAR HGB CONC 32 g/dl (31.0-36.0); MEAN CORPUSCULAR VOLUME 96 fL (82-100); MONOCYTES # (AUTO) 0.6 K/uL (0.1-1.30); MONOCYTES % (AUTO) 10.9 % (2.0-12.0); NEUTROPHILS # (AUTO) 4.3 K/uL (1.8-8.9); NEUTROPHILS % (AUTO) 71.7 % (43.0-81.0); PLATELET COUNT (AUTO) 144 K/uL (150-450); RED BLOOD CELL COUNT(AUTO) 3.32 MIL/uL (4.0-5.2); RED CELL DISTRIBUTION WIDTH 16.7 % (11.5-15.0)
[2025-01-02 23:19] LABS: CALCIUM, SERUM 9.3 mg/dL (8.5-10.1); CARBON DIOXIDE 35 mmol/L (21-32); CHLORIDE 98 mmol/L (98-107); CREATININE 1.2 mg/dL (0.6-1.3); GLUCOSE 122 mg/dL (74-106); POTASSIUM 5.6 mmol/L (3.5-5.1); SODIUM SERUM 133 mmol/L (136-145); UREA NITROGEN, BLOOD 27 mg/dL (7-18)
[2025-01-02 23:23] LABS: INR 1.73 (0.91-1.10); PARTIAL THROMBOPLASTIN TIME 30.3 SEC (24.3-34.3); PROTHROMBIN TIME 17.7 SECS (9.2-11.1)
[2025-01-02 23:32] LABS: ALANINE AMINOTRANSFERASE 21 U/L (12-78); ALBUMIN 3.4 g/dL (3.4-5.0); ALKALINE PHOSPHATASE 125 U/L (46-116); ASPARTATE AMINOTRANSFERASE 36 U/L (15-37); BILIRUBIN,DIRECT 0.5 mg/dL (0.0-0.2); NT-PRO BNP 3352 pg/mL (0-125); TOTAL PROTEIN, SERUM 7.7 g/dL (6.4-8.2)
[2025-01-02 23:46] LABS: ABG BASE EXCESS 6.5 mmol/L (-2.0-3.0); ABG OXYGEN SATURATION 99.8 % (94.0-98.0); ABG PCO2 59.9 mmHg (32.0-45.0); ABG PH 7.363 (7.350-7.450); ABG TOTAL HEMOGLOBIN 10.6 G/dL (12.0-16.0); COHb 0.2 % (0.5-1.5); MetHb 0.2 % (0.0-1.5); O2Hb 99.4 % (94.0-97.0); SITE, ABG RIGHT RADIAL
[2025-01-03] VITALS (18 sets, daily range): BP systolic 93–133; BP diastolic 46–64; TEMP 97.5–98.7; O2SAT 81–100
[2025-01-03] MEDS ORDERED: FUROSEMIDE 20 MG/2 ML VIAL ONE (00:02)
[2025-01-03] MEDS: FUROSEMIDE 20 MG/2 ML VIAL IV ONE (00:04)
[2025-01-03] MEDS ORDERED: hydrALAZINE HCL IV 20 MG VIAL IV PRN (02:00)
[2025-01-03] MEDS ORDERED: FUROSEMIDE 40 MG/4 ML VIAL IV SCH (02:00)
[2025-01-03] MEDS ORDERED: ALBUTEROL FS 2.5 MG/0.5 ML VIAL.NEB NEB PRN (02:00)
[2025-01-03] MEDS ORDERED: ONDANSETRON HCL/PF 4 MG/2 ML VIAL IVP PRN (02:00)
[2025-01-03 02:49] LABS: INR 1.76 (0.91-1.10)
[2025-01-03] MEDS ORDERED: IPRATROPIUM/ALBUTEROL INHALER IH SCH (06:00)
[2025-01-03] MEDS: METOCLOPRAMIDE HCL 10 MG/10 ML UDC PO SCH (08:55)
[2025-01-03] MEDS: FUROSEMIDE 40 MG/4 ML VIAL IV SCH (08:56)
[2025-01-03] MEDS: WARFARIN SODIUM 1 MG TABLET PO SCH (08:58)
[2025-01-03] MEDS: ATENOLOL 50 MG TABLET PO SCH (09:00)
[2025-01-03] MEDS ORDERED: HEPARIN SODIUM, PORCINE 5000 UNITS/1 ML VIAL SQ SCH (09:00)
[2025-01-03] MEDS: DILTIAZEM HCL CD 180 MG PO SCH (09:28)
[2025-01-03] MEDS ORDERED: METO5TAB2 PO (10:29)
[2025-01-03] MEDS ORDERED: MAGN400O6 PO (10:29)
[2025-01-03] MEDS ORDERED: WARF2.5T85 PO (10:29)
[2025-01-03] MEDS ORDERED: FAMO20TA8 PO (10:29)
[2025-01-03] MEDS ORDERED: SACC250C12 PO (10:29)
[2025-01-03] MEDS ORDERED: ACET-637 PO (10:29)
[2025-01-03] MEDS ORDERED: LACT-15 PO (10:29)
[2025-01-03] MEDS ORDERED: METH500T6 PO (10:29)
[2025-01-03] MEDS ORDERED: WARF1TAB86 PO (10:29)
[2025-01-03] MEDS ORDERED: MULT-213 PO (10:29)
[2025-01-03] MEDS ORDERED: ACET325T53 PO (10:29)
[2025-01-03] MEDS ORDERED: NA P133E RC (10:29)
[2025-01-03] MEDS ORDERED: SIME80TA15 PO (10:29)
[2025-01-03] MEDS ORDERED: ACET-73 PO (10:29)
[2025-01-03] MEDS: ENOXAPARIN SODIUM 40 MG/0.4 ML DISP.SYRIN SQ SCH (10:43)
[2025-01-03 10:48] LABS: ABG BASE EXCESS 9.9 mmol/L (-2.0-3.0); ABG OXYGEN SATURATION 97.9 % (94.0-98.0); ABG PCO2 84.1 mmHg (32.0-45.0); ABG PH 7.285 (7.350-7.450); ABG PO2 112.1 mmHg (83.0-108.0); ABG TOTAL HEMOGLOBIN 10.6 G/dL (12.0-16.0); COHb 0.9 % (0.5-1.5); SITE, ABG RIGHT RADIAL
[2025-01-03 12:14] LABS: POTASSIUM 4.6 mmol/L (3.5-5.1)
[2025-01-03 13:01] LABS: ABG BASE EXCESS 11.3 mmol/L (-2.0-3.0); ABG OXYGEN SATURATION 93.9 % (94.0-98.0); ABG PCO2 67.7 mmHg (32.0-45.0); ABG PH 7.375 (7.350-7.450); ABG TOTAL HEMOGLOBIN 10.7 G/dL (12.0-16.0); COHb 0.8 % (0.5-1.5); MetHb 0.3 % (0.0-1.5); O2Hb 92.9 % (94.0-97.0); SITE, ABG RIGHT RADIAL
[2025-01-03] MEDS: IPRATROPIUM NEB FS 0.5 MG/2.5 ML AMPUL.NEB NEB SCH (13:30)
[2025-01-04] VITALS (39 sets, daily range): BP systolic 90–135; BP diastolic 43–84; TEMP 97.6–98.4; O2SAT 90–100
[2025-01-04] MEDS: MORPHINE SULFATE INJ 2 MG/ML DISP.SYRIN IV PRN (01:16)
[2025-01-04 04:27] LABS: BASOPHILS % (AUTO) 0.9 % (0.0-2.0); EOSINOPHILS # (AUTO) 0.4 K/uL (0.0-0.7); HEMATOCRIT 28 % (33-45); HEMOGLOBIN 9.4 g/dL (11.5-14.8); LYMPHOCYTES # (AUTO) 0.5 K/uL (0.8-4.8); MEAN CORPUSCULAR HEMOGLOBIN 32 PG (26.0-33.0); MEAN CORPUSCULAR HGB CONC 33 g/dl (31.0-36.0); MEAN CORPUSCULAR VOLUME 96 fL (82-100); MONOCYTES # (AUTO) 0.4 K/uL (0.1-1.30); MONOCYTES % (AUTO) 10.5 % (2.0-12.0); NEUTROPHILS # (AUTO) 2.6 K/uL (1.8-8.9); NEUTROPHILS % (AUTO) 66.6 % (43.0-81.0); PLATELET COUNT (AUTO) 100 K/uL (150-450); RED BLOOD CELL COUNT(AUTO) 2.97 MIL/uL (4.0-5.2); RED CELL DISTRIBUTION WIDTH 16.3 % (11.5-15.0)
[2025-01-04 04:44] LABS: INR 2.07 (0.91-1.10); PROTHROMBIN TIME 20.9 SECS (9.2-11.1)
[2025-01-04 04:46] LABS: ALBUMIN 2.7 g/dL (3.4-5.0); BILIRUBIN,TOTAL 1.2 mg/dL (0.2-1.0); CALCIUM, SERUM 8.6 mg/dL (8.5-10.1); MAGNESIUM 2.1 mg/dL (1.8-2.4); PHOSPHORUS 3.5 mg/dL (2.5-4.9); POTASSIUM 3.5 mmol/L (3.5-5.1); TOTAL PROTEIN, SERUM 6.3 g/dL (6.4-8.2)
[2025-01-04] MEDS ORDERED: WARFARIN SODIUM 1 MG TABLET PO SCH (09:00)
[2025-01-04] MEDS: VITAMINS A AND D 56.7 GM TUBE TP SCH (09:06)
[2025-01-04] MEDS: ENOXAPARIN SODIUM 40 MG/0.4 ML DISP.SYRIN SQ SCH (09:13)
[2025-01-04 09:41] LABS: ABG BASE EXCESS 13.8 mmol/L (-2.0-3.0); ABG OXYGEN SATURATION 95.9 % (94.0-98.0); ABG PCO2 63.5 mmHg (32.0-45.0); ABG PH 7.423 (7.350-7.450); ABG PO2 83.6 mmHg (83.0-108.0); ABG TOTAL HEMOGLOBIN 10.8 G/dL (12.0-16.0); COHb 1.6 % (0.5-1.5); MetHb 0.3 % (0.0-1.5); O2Hb 94.1 % (94.0-97.0); SITE, ABG RIGHT BRACHIAL
[2025-01-04] MEDS: SORBITOL SOLUTION 70% 30 ML SOLUTION PO ONE (12:06)
[2025-01-04] MEDS: LACTULOSE 10 G/15 ML UDC (PYXIS) PO PRN (15:50)
[2025-01-04] MEDS ORDERED: ALPRAZOLAM 0.25 MG TABLET PO PRN (16:30)
[2025-01-04] MEDS: FAMOTIDINE (20 MG) 20 MG TABLET PO SCH (16:35)
[2025-01-04] MEDS: SIMETHICONE 80 MG TAB.CHEW PO PRN (16:36)
[2025-01-04] MEDS: ENSURE ENLIVE CHOC 237 ML CAN PO SCH (17:00)
[2025-01-04] MEDS ORDERED: METOCLOPRAMIDE HCL 5 MG/5 ML UDC PO SCH (18:00)
[2025-01-04] MEDS: NA PHOS,M-B/NA PHOS,DI-BA 1 EA ENEMA RC PRN (20:59)
[2025-01-05] VITALS (27 sets, daily range): BP systolic 91–133; BP diastolic 31–88; TEMP 97–98.7; O2SAT 91–99
[2025-01-05 04:15] LABS: BASOPHILS % (AUTO) 0.3 % (0.0-2.0); EOSINOPHILS % (AUTO) 0.7 % (0.0-6.0); HEMATOCRIT 29 % (33-45); HEMOGLOBIN 9.4 g/dL (11.5-14.8); LYMPHOCYTES # (AUTO) 0.5 K/uL (0.8-4.8); LYMPHOCYTES % (AUTO) 7.3 % (20.0-44.0); MEAN CORPUSCULAR HEMOGLOBIN 32 PG (26.0-33.0); MEAN CORPUSCULAR HGB CONC 33 g/dl (31.0-36.0); MEAN CORPUSCULAR VOLUME 95 fL (82-100); MONOCYTES # (AUTO) 0.6 K/uL (0.1-1.30); MONOCYTES % (AUTO) 9.2 % (2.0-12.0); NEUTROPHILS # (AUTO) 5.1 K/uL (1.8-8.9); NEUTROPHILS % (AUTO) 82.5 % (43.0-81.0); PLATELET COUNT (AUTO) 117 K/uL (150-450); RED CELL DISTRIBUTION WIDTH 16.6 % (11.5-15.0); WHITE BLOOD COUNT (AUTO) 6.2 K/uL (4.3-11.0)
[2025-01-05 04:30] LABS: INR 2.49 (0.91-1.10); PROTHROMBIN TIME 24.9 SECS (9.2-11.1)
[2025-01-05 04:47] LABS: CALCIUM, SERUM 9.2 mg/dL (8.5-10.1); MAGNESIUM 2.2 mg/dL (1.8-2.4); PHOSPHORUS 3.4 mg/dL (2.5-4.9); POTASSIUM 3.3 mmol/L (3.5-5.1)
[2025-01-05] MEDS: MULTIVIT W/MINERALS 1 TAB TABLET PO SCH (09:09)
[2025-01-05] MEDS: POTASSIUM CHLORIDE 20 MEQ TAB.PRT.SR PO SCH (11:12)
[2025-01-05] MEDS ORDERED: MECLIZINE HCL 12.5 MG TABLET PO PRN (14:00)
[2025-01-05] MEDS: MECLIZINE HCL 25 MG TABLET PO PRN (20:15)
[2025-01-06] VITALS (10 sets, daily range): BP systolic 100–117; BP diastolic 52–68; TEMP 97.7–98.6; O2SAT 95–99
[2025-01-06 07:25] LABS: INR 2.21 (0.91-1.10); PROTHROMBIN TIME 22.2 SECS (9.2-11.1)
[2025-01-06 07:48] LABS: CALCIUM, SERUM 9.1 mg/dL (8.5-10.1); CREATININE 0.9 mg/dL (0.6-1.3); MAGNESIUM 2.1 mg/dL (1.8-2.4); PHOSPHORUS 1.6 mg/dL (2.5-4.9); POTASSIUM 3.6 mmol/L (3.5-5.1)
[2025-01-06 08:08] LABS: BASOPHILS % (AUTO) 0.4 % (0.0-2.0); EOSINOPHILS # (AUTO) 0.1 K/uL (0.0-0.7); EOSINOPHILS % (AUTO) 1.8 % (0.0-6.0); HEMATOCRIT 28 % (33-45); HEMOGLOBIN 9.2 g/dL (11.5-14.8); LYMPHOCYTES # (AUTO) 0.6 K/uL (0.8-4.8); MEAN CORPUSCULAR HEMOGLOBIN 31 PG (26.0-33.0); MEAN CORPUSCULAR HGB CONC 33 g/dl (31.0-36.0); MEAN CORPUSCULAR VOLUME 95 fL (82-100); MONOCYTES # (AUTO) 0.5 K/uL (0.1-1.30); MONOCYTES % (AUTO) 11.7 % (2.0-12.0); NEUTROPHILS # (AUTO) 3.2 K/uL (1.8-8.9); NEUTROPHILS % (AUTO) 72.1 % (43.0-81.0); PLATELET COUNT (AUTO) 95 K/uL (150-450); RED BLOOD CELL COUNT(AUTO) 2.95 MIL/uL (4.0-5.2); RED CELL DISTRIBUTION WIDTH 16.7 % (11.5-15.0); WHITE BLOOD COUNT (AUTO) 4.5 K/uL (4.3-11.0)
[2025-01-06 11:33] LABS: EOSINOPHILS % (MANUAL) 1 % (0-4); LYMPHOCYTES % (MANUAL) 16 % (16-48); MONOCYTES % (MANUAL) 6 % (0-11.0); NEUTROPHILS % (MANUAL) 77 (42-76); PLATELET ESTIMATE DECREASED
[2025-01-06 11:37] LABS: ANISOCYTOSIS 1+
[2025-01-06] MEDS: K PHOS NEUTRAL 250 MG TABLET PO ONE (16:38)
[2025-01-07] VITALS (12 sets, daily range): BP systolic 89–135; BP diastolic 54–73; TEMP 97.5–98.6; O2SAT 95–99
[2025-01-07 07:07] LABS: INR 1.63 (0.91-1.10); PROTHROMBIN TIME 16.7 SECS (9.2-11.1)
[2025-01-08] VITALS (10 sets, daily range): BP systolic 103–123; BP diastolic 54–75; TEMP 97.7–98.3; O2SAT 96–99
[2025-01-08 07:01] LABS: INR 1.44 (0.91-1.10); PROTHROMBIN TIME 14.9 SECS (9.2-11.1)
[2025-01-08 07:05] LABS: BASOPHILS % (AUTO) 0.9 % (0.0-2.0); EOSINOPHILS # (AUTO) 0.3 K/uL (0.0-0.7); HEMATOCRIT 28 % (33-45); HEMOGLOBIN 9.2 g/dL (11.5-14.8); LYMPHOCYTES # (AUTO) 0.5 K/uL (0.8-4.8); LYMPHOCYTES % (AUTO) 13.6 % (20.0-44.0); MEAN CORPUSCULAR HEMOGLOBIN 31 PG (26.0-33.0); MEAN CORPUSCULAR HGB CONC 33 g/dl (31.0-36.0); MEAN CORPUSCULAR VOLUME 95 fL (82-100); MONOCYTES # (AUTO) 0.4 K/uL (0.1-1.30); MONOCYTES % (AUTO) 11.6 % (2.0-12.0); NEUTROPHILS # (AUTO) 2.3 K/uL (1.8-8.9); NEUTROPHILS % (AUTO) 65.9 % (43.0-81.0); PLATELET COUNT (AUTO) 102 K/uL (150-450); RED BLOOD CELL COUNT(AUTO) 2.98 MIL/uL (4.0-5.2); RED CELL DISTRIBUTION WIDTH 16.1 % (11.5-15.0); WHITE BLOOD COUNT (AUTO) 3.5 K/uL (4.3-11.0)
[2025-01-08 07:16] LABS: CALCIUM, SERUM 9.5 mg/dL (8.5-10.1); CREATININE 0.9 mg/dL (0.6-1.3); MAGNESIUM 2.2 mg/dL (1.8-2.4); POTASSIUM 3.3 mmol/L (3.5-5.1)
[2025-01-08] MEDS: POTASSIUM CL. PREMIX PERIPHER. 50 ML IV SCH (10:10)
[2025-01-08 15:22] LABS: PROTEIN, BODY FLUID 2.2 G/DL
[2025-01-08 19:35] LABS: APPEARANCE,SPUN,BODY FLUID CLEAR (CLEAR); TOTAL VOLUME,BODY FLUID 250 mL; WBC, BODY FLUID 559 /cu. mm. (0-200)
[2025-01-08 19:45] LABS: MONOCYTES,BODY FLUID 6 %
[2025-01-09] VITALS (11 sets, daily range): BP systolic 100–129; BP diastolic 54–80; TEMP 97.3–98.8; O2SAT 97–100
[2025-01-09 06:46] LABS: BASOPHILS % (AUTO) 0.8 % (0.0-2.0); EOSINOPHILS # (AUTO) 0.2 K/uL (0.0-0.7); EOSINOPHILS % (AUTO) 5.9 % (0.0-6.0); HEMATOCRIT 30 % (33-45); HEMOGLOBIN 9.7 g/dL (11.5-14.8); LYMPHOCYTES # (AUTO) 0.7 K/uL (0.8-4.8); LYMPHOCYTES % (AUTO) 16.8 % (20.0-44.0); MEAN CORPUSCULAR HEMOGLOBIN 31 PG (26.0-33.0); MEAN CORPUSCULAR HGB CONC 32 g/dl (31.0-36.0); MEAN CORPUSCULAR VOLUME 95 fL (82-100); MONOCYTES # (AUTO) 0.5 K/uL (0.1-1.30); MONOCYTES % (AUTO) 11.6 % (2.0-12.0); NEUTROPHILS # (AUTO) 2.5 K/uL (1.8-8.9); NEUTROPHILS % (AUTO) 64.9 % (43.0-81.0); PLATELET COUNT (AUTO) 114 K/uL (150-450); RED BLOOD CELL COUNT(AUTO) 3.16 MIL/uL (4.0-5.2); RED CELL DISTRIBUTION WIDTH 16.1 % (11.5-15.0); WHITE BLOOD COUNT (AUTO) 3.9 K/uL (4.3-11.0)
[2025-01-09 07:19] LABS: INR 1.3 (0.91-1.10); PROTHROMBIN TIME 13.5 SECS (9.2-11.1)
[2025-01-09] MEDS: ALBUTEROL FS 2.5 MG/0.5 ML VIAL.NEB NEB PRN (07:19)
[2025-01-09 07:26] LABS: CALCIUM, SERUM 9.2 mg/dL (8.5-10.1); CREATININE 0.8 mg/dL (0.6-1.3); MAGNESIUM 2.1 mg/dL (1.8-2.4); PHOSPHORUS 3.1 mg/dL (2.5-4.9); POTASSIUM 3.7 mmol/L (3.5-5.1)
[2025-01-09] MEDS: WARFARIN SODIUM 2 MG TABLET PO SCH (16:10)
[2025-01-09] MEDS ORDERED: AMIODARONE 150 MG/3 ML VIAL IV ONE ×2 (23:35→23:56)
[2025-01-09] MEDS: AMIODARONE 150 MG in IV D5W 100 ML IV ONE (23:44)
[2025-01-10] VITALS (9 sets, daily range): BP systolic 99–109; BP diastolic 54–70; TEMP 97.8–98.3; O2SAT 96–100
[2025-01-10] MEDS: AMIODARONE 450 MG in IV D5W 241 ML IV PRN (00:15)
[2025-01-10 07:34] LABS: BASOPHILS % (AUTO) 0.6 % (0.0-2.0); EOSINOPHILS # (AUTO) 0.1 K/uL (0.0-0.7); EOSINOPHILS % (AUTO) 2.7 % (0.0-6.0); HEMATOCRIT 31 % (33-45); LYMPHOCYTES # (AUTO) 0.7 K/uL (0.8-4.8); LYMPHOCYTES % (AUTO) 14.7 % (20.0-44.0); MEAN CORPUSCULAR HEMOGLOBIN 31 PG (26.0-33.0); MEAN CORPUSCULAR HGB CONC 32 g/dl (31.0-36.0); MEAN CORPUSCULAR VOLUME 95 fL (82-100); MONOCYTES # (AUTO) 0.5 K/uL (0.1-1.30); MONOCYTES % (AUTO) 11.1 % (2.0-12.0); NEUTROPHILS # (AUTO) 3.4 K/uL (1.8-8.9); NEUTROPHILS % (AUTO) 70.9 % (43.0-81.0); PLATELET COUNT (AUTO) 121 K/uL (150-450); RED BLOOD CELL COUNT(AUTO) 3.26 MIL/uL (4.0-5.2); RED CELL DISTRIBUTION WIDTH 16.5 % (11.5-15.0); WHITE BLOOD COUNT (AUTO) 4.9 K/uL (4.3-11.0)
[2025-01-10 07:41] LABS: INR 1.24 (0.91-1.10)
[2025-01-10 08:04] LABS: CALCIUM, SERUM 9.4 mg/dL (8.5-10.1); MAGNESIUM 2.2 mg/dL (1.8-2.4); PHOSPHORUS 3.1 mg/dL (2.5-4.9); POTASSIUM 3.9 mmol/L (3.5-5.1)
[2025-01-10 09:54] LABS: ABG BASE EXCESS 20.2 mmol/L (-2.0-3.0); ABG OXYGEN SATURATION 97.7 % (94.0-98.0); ABG PCO2 63.7 mmHg (32.0-45.0); ABG PH 7.482 (7.350-7.450); ABG PO2 99.8 mmHg (83.0-108.0); ABG TOTAL HEMOGLOBIN 10.2 G/dL (12.0-16.0); COHb 0.7 % (0.5-1.5); MetHb 0.3 % (0.0-1.5); O2Hb 96.7 % (94.0-97.0); SITE, ABG RIGHT RADIAL
[2025-01-11] VITALS (10 sets, daily range): BP systolic 99–132; BP diastolic 44–97; TEMP 95.7–98.6; O2SAT 92–98
[2025-01-11 07:02] LABS: INR 1.56 (0.91-1.10); PROTHROMBIN TIME 16.1 SECS (9.2-11.1)
[2025-01-11] MEDS: BISACODYL SUPP (10 MG) 10 MG/SUPP.RECT SUPP.RECT RC PRN (12:17)
[2025-01-11] MEDS: DIGOXIN INJ 0.5 MG/2 ML AMPUL IV SCH (12:21)
[2025-01-11] MEDS ORDERED: AMIODARONE HCL 200 MG TABLET PO SCH (13:00)
[2025-01-11] MEDS: AMIODARONE HCL 200 MG TABLET PO SCH (20:57)
[2025-01-12] VITALS (15 sets, daily range): BP systolic 106–121; BP diastolic 44–63; TEMP 97.6–98.1; O2SAT 94–100
[2025-01-12 06:17] LABS: BASOPHILS % (AUTO) 0.3 % (0.0-2.0); EOSINOPHILS # (AUTO) 0.1 K/uL (0.0-0.7); EOSINOPHILS % (AUTO) 1.3 % (0.0-6.0); HEMATOCRIT 28 % (33-45); HEMOGLOBIN 9.2 g/dL (11.5-14.8); LYMPHOCYTES # (AUTO) 0.6 K/uL (0.8-4.8); LYMPHOCYTES % (AUTO) 10.1 % (20.0-44.0); MEAN CORPUSCULAR HEMOGLOBIN 31 PG (26.0-33.0); MEAN CORPUSCULAR HGB CONC 32 g/dl (31.0-36.0); MEAN CORPUSCULAR VOLUME 95 fL (82-100); MONOCYTES # (AUTO) 0.5 K/uL (0.1-1.30); MONOCYTES % (AUTO) 9.1 % (2.0-12.0); NEUTROPHILS # (AUTO) 4.6 K/uL (1.8-8.9); NEUTROPHILS % (AUTO) 79.2 % (43.0-81.0); PLATELET COUNT (AUTO) 119 K/uL (150-450); RED BLOOD CELL COUNT(AUTO) 2.99 MIL/uL (4.0-5.2); RED CELL DISTRIBUTION WIDTH 16.5 % (11.5-15.0); WHITE BLOOD COUNT (AUTO) 5.9 K/uL (4.3-11.0)
[2025-01-12 06:32] LABS: INR 2.41 (0.91-1.10); PROTHROMBIN TIME 24.1 SECS (9.2-11.1)
[2025-01-12 07:04] LABS: CALCIUM, SERUM 8.9 mg/dL (8.5-10.1); CREATININE 0.9 mg/dL (0.6-1.3); POTASSIUM 3.2 mmol/L (3.5-5.1)
[2025-01-12] MEDS ORDERED: POTASSIUM CHLORIDE 20 MEQ TAB.PRT.SR PO SCH (09:00)
[2025-01-12] MEDS: POTASSIUM CL. PREMIX PERIPHER. 50 ML IV SCH (10:40)
[2025-01-12] MEDS: ACETAMINOPHEN 325 MG TABLET PO PRN (22:29)
[2025-01-13] VITALS (13 sets, daily range): BP systolic 104–141; BP diastolic 48–65; TEMP 97.3–98.1; O2SAT 92–100
[2025-01-13 07:14] LABS: CALCIUM, SERUM 8.9 mg/dL (8.5-10.1)
[2025-01-13] MEDS: MEGESTROL ACETATE SUSP 400 MG/10 ML UDC PO SCH (11:58)
[2025-01-14] VITALS (12 sets, daily range): BP systolic 111–131; BP diastolic 43–59; TEMP 97.7–98.6; O2SAT 95–100
[2025-01-14 07:44] LABS: CALCIUM, SERUM 9.6 mg/dL (8.5-10.1); CREATININE 1.3 mg/dL (0.6-1.3); POTASSIUM 4.5 mmol/L (3.5-5.1)
[2025-01-15] VITALS: BP 112/52; TEMP 98.4; O2SAT 98
[2025-01-15 04:00] VITALS: BP 139/52; TEMP 98.2; O2SAT 96
[2025-01-15 06:43] LABS: PROTHROMBIN TIME 62.9 SECS (9.2-11.1)
[2025-01-15 06:58] LABS: CALCIUM, SERUM 9.5 mg/dL (8.5-10.1); POTASSIUM 3.4 mmol/L (3.5-5.1)
[2025-01-15 07:32] LABS: INR 6.72 (0.91-1.10)
[2025-01-15 07:33] VITALS: O2SAT 98
[2025-01-15 07:44] VITALS: O2SAT 100
[2025-01-15 08:32] VITALS: BP 118/57
[2025-01-15] MEDS: POTASSIUM CHLORIDE 20 MEQ TAB.PRT.SR PO SCH (10:34)
== END 2025-01-15 12:00 | DRG 291 ==
LOC: ER 22:06 → TELE1 01-03 02:37 → TELE-TD 01-03 03:17 → TELE1 01-03 09:29 → ICU 01-03 11:21 → TELE 01-05 18:24 → TELE1 01-09 23:22 → TELE-TD 01-10 00:31 → TELE1 01-12 08:14 → MEDSG1 01-15 09:43
PROVIDERS: ADMIT Internal Medicine; ATTEND Nurse Practitioner Acute Care
PROC: 5A09457 Assistance with Respiratory Ventilation, 24-96 Consecutive Hours, Continuous Positive Airway Pressure (ICD-10-PCS; principal; 2025-01-03)
PROC: 0W993ZX Drainage of Right Pleural Cavity, Percutaneous Approach, Diagnostic (ICD-10-PCS; 2025-01-08)
DX: I11.0 Hypertensive heart disease with heart failure (principal); E43 Unspecified severe protein-calorie malnutrition; I50.33 Acute on chronic diastolic (congestive) heart failure; K85.90 Acute pancreatitis without necrosis or infection, unspecified; J96.22 Acute and chronic respiratory failure with hypercapnia; J96.21 Acute and chronic respiratory failure with hypoxia; N17.0 Acute kidney failure with tubular necrosis; I48.20 Chronic atrial fibrillation, unspecified; R64 Cachexia; J90 Pleural effusion, not elsewhere classified; K86.1 Other chronic pancreatitis; K76.6 Portal hypertension; R18.8 Other ascites; Z68.1 Body mass index [BMI] 19.9 or less, adult; E87.3 Alkalosis; E87.1 Hypo-osmolality and hyponatremia; I27.20 Pulmonary hypertension, unspecified; K74.60 Unspecified cirrhosis of liver; Z95.2 Presence of prosthetic heart valve; M81.0 Age-related osteoporosis without current pathological fracture; I05.0 Rheumatic mitral stenosis; M89.8X9 Other specified disorders of bone, unspecified site; K21.9 Gastro-esophageal reflux disease without esophagitis; K64.9 Unspecified hemorrhoids; E78.00 Pure hypercholesterolemia, unspecified; Z98.890 Other specified postprocedural states; Z90.49 Acquired absence of other specified parts of digestive tract; Z98.891 History of uterine scar from previous surgery; Z79.899 Other long term (current) drug therapy; E87.5 Hyperkalemia; E86.1 Hypovolemia; K31.84 Gastroparesis; Z79.01 Long term (current) use of anticoagulants; D69.6 Thrombocytopenia, unspecified; D63.8 Anemia in other chronic diseases classified elsewhere; K56.41 Fecal impaction; L85.3 Xerosis cutis; R62.7 Adult failure to thrive; R79.1 Abnormal coagulation profile; G89.29 Other chronic pain; E87.6 Hypokalemia; Z20.822 Contact with and (suspected) exposure to COVID-19; Z86.73 Personal history of transient ischemic attack (TIA), and cerebral infarction without residual deficits; Z91.199 Patient's noncompliance with other medical treatment and regimen due to unspecified reason; T50.2X5A Adverse effect of carbonic-anhydrase inhibitors, benzothiadiazides and other diuretics, initial encounter; Y92.9 Unspecified place or not applicable; E86.9 Volume depletion, unspecified
CPT/HCPCS: 36415; 36600; 71045-TC; 71250-TC; 80048-TC; 80053-TC; 80076-TC; 80162-TC; 82803-TC; 82962-TC; 83605-TC; 83690-TC; 83735-TC; 83880; 84100-TC; 84484-TC; 85025-TC; 85610-TC; 85730-TC; 87040-TC; 87081-TC; 89051-TC; 94660; 94760-TC; 94761-TC; 94799-TC; 97110-TC; 97116-TC; 97530-TC; A4223; G0378; J0282; J1160; J1650; J1938; J1940; J2270; J3480; J7040; J7050; J7060; J8597

== ENCOUNTER 2025-01-23 10:57 | Inpatient (IN) | payer MEDICARE, OTHER ==
[~2025-01-23] VITALS: Ht 154.9 cm; Wt 36.7 kg
[2025-01-23] VITALS (19 sets, daily range): BP systolic 114–152; BP diastolic 40–55; TEMP 97.9–98.4; O2SAT 90–100
[~2025-01-23 10:57] MED LIST changes: +ACET-637 PO; +ACET-73 PO; +ACET325T53 PO; -BISA10SU61 RC; +FAMO20TA8 PO; -FAMO20TA80 PO; +LACT-15 PO; -LACT10SO58 PO; +MAGN400O6 PO; -MELA5TAB PO; -METO5SOL2 PO; +METO5TAB2 PO; -MIRT-121 PO; +MULT-213 PO; -Multivit W/Minerals PO; +NA P133E RC; -NUT.237L67 PO; -PANT40TA49 PO; -PSYL822P6 PO; +SACC250C12 PO; +SIME80TA15 PO; -SIME80TA72 PO; -SPIR50TA5 PO; +WARF1TAB86 PO; +WARF2.5T85 PO
[2025-01-23] MEDS: IV NS 0.9% 500 ML BAG IV ONE (11:40)
[2025-01-23] MEDS: VANCOMYCIN 1 GM in IV D5W 250 ML IV ONE (12:00)
[2025-01-23] MEDS: CEFEPIME 1 GM in IV D5W 50 ML IV ONE (12:00)
[2025-01-23 12:04] LABS: ABG BASE EXCESS 3.9 mmol/L (-2.0-3.0); ABG OXYGEN SATURATION 93.9 % (94.0-98.0); ABG PCO2 77.8 mmHg (32.0-45.0); ABG PH 7.242 (7.350-7.450); ABG PO2 79.1 mmHg (83.0-108.0); ABG TOTAL HEMOGLOBIN 9.8 G/dL (12.0-16.0); COHb 0.6 % (0.5-1.5); MetHb 0.3 % (0.0-1.5); O2Hb 93.1 % (94.0-97.0); SITE, ABG LEFT RADIAL
[2025-01-23 12:07] LABS: MEAN CORPUSCULAR HEMOGLOBIN 31 PG (26.0-33.0)
[2025-01-23 12:13] LABS: BASOPHILS % (AUTO) 0.3 % (0.0-2.0); EOSINOPHILS % (AUTO) 0.1 % (0.0-6.0); HEMATOCRIT 29 % (33-45); HEMOGLOBIN 9.6 g/dL (11.5-14.8); LYMPHOCYTES # (AUTO) 0.3 K/uL (0.8-4.8); LYMPHOCYTES % (AUTO) 4.2 % (20.0-44.0); MEAN CORPUSCULAR HGB CONC 33 g/dl (31.0-36.0); MEAN CORPUSCULAR VOLUME 96 fL (82-100); MONOCYTES # (AUTO) 0.7 K/uL (0.1-1.30); NEUTROPHILS # (AUTO) 7.4 K/uL (1.8-8.9); NEUTROPHILS % (AUTO) 87.4 % (43.0-81.0); PLATELET COUNT (AUTO) 247 K/uL (150-450); RED BLOOD CELL COUNT(AUTO) 3.06 MIL/uL (4.0-5.2); RED CELL DISTRIBUTION WIDTH 16.2 % (11.5-15.0); WHITE BLOOD COUNT (AUTO) 8.4 K/uL (4.3-11.0)
[2025-01-23 12:18] LABS: ALBUMIN 3.7 g/dL (3.4-5.0); BILIRUBIN,DIRECT 1.1 mg/dL (0.0-0.2); BILIRUBIN,TOTAL 1.6 mg/dL (0.2-1.0); CREATININE 2.3 mg/dL (0.6-1.3); TOTAL PROTEIN, SERUM 8.4 g/dL (6.4-8.2)
[2025-01-23 12:20] LABS: LACTIC ACID 1.3 mmol/L (0.4-2.0)
[2025-01-23 12:24] LABS: PROTHROMBIN TIME 59.2 SECS (9.2-11.1)
[2025-01-23 12:25] LABS: POTASSIUM 6.3 mmol/L (3.5-5.1)
[2025-01-23 12:28] LABS: INR 6.3 (0.91-1.10)
[2025-01-23] MEDS ORDERED: WARF-68 PO (12:39)
[2025-01-23] MEDS ORDERED: DILT180C49 PO (12:39)
[2025-01-23] MEDS ORDERED: BUME1TAB9 PO (12:39)
[2025-01-23] MEDS ORDERED: MEGE400O4 PO (12:39)
[2025-01-23] MEDS ORDERED: IPRA3AMP23 IH (12:39)
[2025-01-23] MEDS ORDERED: LACT-246 PO (12:39)
[2025-01-23] MEDS ORDERED: METO10TA3 PO (12:39)
[2025-01-23] MEDS ORDERED: AMIO400T5 PO (12:39)
[2025-01-23] MEDS ORDERED: SODIUM BICARBONATE SYR 50 MEQ/50 ML DISP.SYRIN ONE (12:58)
[2025-01-23] MEDS: SODIUM BICARBONATE SYR 50 MEQ/50 ML DISP.SYRIN IV ONE (13:00)
[2025-01-23] MEDS ORDERED: ONDANSETRON HCL/PF 4 MG/2 ML VIAL IVP PRN (13:30)
[2025-01-23] MEDS ORDERED: ALBUTEROL FS 2.5 MG/3 ML VIAL.NEB NEB PRN (13:30)
[2025-01-23] MEDS ORDERED: Z GUARD REMEDY 4 OZ OINT TP PRN (13:30)
[2025-01-23] MEDS ORDERED: IPRATROPIUM NEB FS 0.5 MG/2.5 ML AMPUL.NEB NEB PRN (13:30)
[2025-01-23] MEDS: Calcium Gluconate 1GM/10ML 4.65 MEQ in IV NS 0.9% 100 ML IV ONE (13:41)
[2025-01-23] MEDS: PANTOPRAZOLE 40 MG VIAL IV SCH (15:21)
[2025-01-23 15:26] LABS: ABG BASE EXCESS 5.5 mmol/L (-2.0-3.0); ABG OXYGEN SATURATION 96.8 % (94.0-98.0); ABG PCO2 77.8 mmHg (32.0-45.0); ABG TOTAL HEMOGLOBIN 9.5 G/dL (12.0-16.0); COHb 0.9 % (0.5-1.5); MetHb 0.3 % (0.0-1.5); O2Hb 95.6 % (94.0-97.0); SITE, ABG RIGHT RADIAL
[2025-01-23 19:52] LABS: CALCIUM, SERUM 9.1 mg/dL (8.5-10.1); POTASSIUM 5.6 mmol/L (3.5-5.1)
[2025-01-24] VITALS (49 sets, daily range): BP systolic 109–152; BP diastolic 34–69; TEMP 98.3–99.1; O2SAT 74–99
[2025-01-24 03:43] LABS: EOSINOPHILS % (AUTO) 0.2 % (0.0-6.0); HEMATOCRIT 26 % (33-45); HEMOGLOBIN 8.6 g/dL (11.5-14.8); LYMPHOCYTES # (AUTO) 0.2 K/uL (0.8-4.8); LYMPHOCYTES % (AUTO) 2.9 % (20.0-44.0); MEAN CORPUSCULAR HEMOGLOBIN 32 PG (26.0-33.0); MEAN CORPUSCULAR HGB CONC 33 g/dl (31.0-36.0); MEAN CORPUSCULAR VOLUME 96 fL (82-100); MONOCYTES # (AUTO) 0.4 K/uL (0.1-1.30); MONOCYTES % (AUTO) 6.7 % (2.0-12.0); NEUTROPHILS # (AUTO) 5.3 K/uL (1.8-8.9); NEUTROPHILS % (AUTO) 90.2 % (43.0-81.0); PLATELET COUNT (AUTO) 170 K/uL (150-450); RED BLOOD CELL COUNT(AUTO) 2.72 MIL/uL (4.0-5.2); RED CELL DISTRIBUTION WIDTH 16.3 % (11.5-15.0); WHITE BLOOD COUNT (AUTO) 5.8 K/uL (4.3-11.0)
[2025-01-24 03:54] LABS: CALCIUM, SERUM 9.4 mg/dL (8.5-10.1); CREATININE 1.6 mg/dL (0.6-1.3); MAGNESIUM 2.9 mg/dL (1.8-2.4); PHOSPHORUS 4.4 mg/dL (2.5-4.9); POTASSIUM 5.1 mmol/L (3.5-5.1)
[2025-01-24 09:06] LABS: ABG BASE EXCESS 8.6 mmol/L (-2.0-3.0); ABG OXYGEN SATURATION 98.2 % (94.0-98.0); ABG PCO2 57.2 mmHg (32.0-45.0); ABG PO2 112.7 mmHg (83.0-108.0); ABG TOTAL HEMOGLOBIN 9.2 G/dL (12.0-16.0); COHb 1.4 % (0.5-1.5); MetHb 0.3 % (0.0-1.5); O2Hb 96.5 % (94.0-97.0); SITE, ABG LEFT BRACHIAL
[2025-01-24] MEDS: IV NS 0.9% 1,000 ML IV ONE (10:04)
[2025-01-24 10:47] LABS: ABG BASE EXCESS 10.4 mmol/L (-2.0-3.0); ABG PCO2 62.8 mmHg (32.0-45.0); ABG PH 7.388 (7.350-7.450); ABG PO2 63.3 mmHg (83.0-108.0); ABG TOTAL HEMOGLOBIN 9.2 G/dL (12.0-16.0); COHb 1.3 % (0.5-1.5); MetHb 0.3 % (0.0-1.5); O2Hb 89.5 % (94.0-97.0); SITE, ABG RIGHT RADIAL
[2025-01-24] MEDS: CEFEPIME 2 GM in IV D5W 100 ML IV SCH (11:26)
[2025-01-24] MEDS ORDERED: METOCLOPRAMIDE HCL 10 MG TABLET PO SCH (13:00)
[2025-01-24] MEDS: METOCLOPRAMIDE HCL 10 MG/2 ML VIAL IV SCH (13:39)
[2025-01-24] MEDS: VANCOMYCIN 750 MG in IV D5W 250 ML IV SCH (23:31)
[2025-01-25] VITALS (31 sets, daily range): BP systolic 101–146; BP diastolic 41–87; TEMP 98.2–99.8; O2SAT 88–99
[2025-01-25 04:51] LABS: EOSINOPHILS % (AUTO) 0.4 % (0.0-6.0); HEMATOCRIT 26 % (33-45); HEMOGLOBIN 8.2 g/dL (11.5-14.8); LYMPHOCYTES # (AUTO) 0.2 K/uL (0.8-4.8); LYMPHOCYTES % (AUTO) 3.7 % (20.0-44.0); MEAN CORPUSCULAR HEMOGLOBIN 30 PG (26.0-33.0); MEAN CORPUSCULAR HGB CONC 32 g/dl (31.0-36.0); MEAN CORPUSCULAR VOLUME 95 fL (82-100); MONOCYTES # (AUTO) 0.4 K/uL (0.1-1.30); MONOCYTES % (AUTO) 7.5 % (2.0-12.0); NEUTROPHILS # (AUTO) 4.2 K/uL (1.8-8.9); NEUTROPHILS % (AUTO) 88.4 % (43.0-81.0); PLATELET COUNT (AUTO) 158 K/uL (150-450); RED BLOOD CELL COUNT(AUTO) 2.71 MIL/uL (4.0-5.2); RED CELL DISTRIBUTION WIDTH 16.3 % (11.5-15.0); WHITE BLOOD COUNT (AUTO) 4.7 K/uL (4.3-11.0)
[2025-01-25 05:02] LABS: PROTHROMBIN TIME 43.8 SECS (9.2-11.1)
[2025-01-25 05:03] LABS: INR 4.56 (0.91-1.10)
[2025-01-25 05:05] LABS: ALBUMIN 2.6 g/dL (3.4-5.0); BILIRUBIN,TOTAL 1.6 mg/dL (0.2-1.0); CALCIUM, SERUM 9.3 mg/dL (8.5-10.1); CREATININE 0.9 mg/dL (0.6-1.3); MAGNESIUM 2.7 mg/dL (1.8-2.4); PHOSPHORUS 2.4 mg/dL (2.5-4.9); POTASSIUM 4.3 mmol/L (3.5-5.1); TOTAL PROTEIN, SERUM 6.5 g/dL (6.4-8.2)
[2025-01-25 07:54] LABS: PROTHROMBIN TIME 41.3 SECS (9.2-11.1)
[2025-01-25 08:03] LABS: INR 4.29 (0.91-1.10)
[2025-01-25] MEDS: DILTIAZEM HCL CD 180 MG PO SCH (08:45)
[2025-01-25] MEDS ORDERED: VANCOMYCIN 750 MG in IV D5W 250 ML IV SCH (12:00)
[2025-01-25 15:09] LABS: APPEARANCE,URINE CLEAR (CLEAR); BILIRUBIN,URINE NEGATIVE (NEGATIVE); BLOOD, URINE 3+ Ery/uL (NEGATIVE); COLOR,URINE YELLOW (YELLOW); KETONES,URINE 1+ mg/dL (NEGATIVE); LEUKOCYTE ESTERASE ,URINE TRACE (NEGATIVE); NITRITE, URINE NEGATIVE (NEGATIVE); PROTEIN,URINE 1+ mg/dl (NEGATIVE); UGLUCOSE NEGATIVE (NEGATIVE); UROBILINOGEN,URINE 0.2 EU/dL (0.2)
[2025-01-25 15:49] LABS: CREATININE, URINE 51.6 MG/DL (30.0-125.0)
[2025-01-25] MEDS: Sodium Phosphate 15 MMOL in IV NS 0.9% 245 ML IV ONE (17:15)
[2025-01-25 19:11] LABS: ADD URINE CULTURE NO; BACTERIA,URINE Few /HPF (None Seen)
[2025-01-25 19:13] LABS: SQUAMOUS EPITHELIAL CELL,UR Rare /HPF (None Seen); URIC ACID CRYSTALS,URINE Rare /HPF (None Seen)
[2025-01-25 20:24] LABS: EOSINOPHIL,URINE None Seen
[2025-01-25] MEDS: METOCLOPRAMIDE HCL 10 MG/2 ML VIAL IV SCH (20:47)
[2025-01-26] VITALS (29 sets, daily range): BP systolic 111–165; BP diastolic 44–84; TEMP 98–98.8; O2SAT 89–99
[2025-01-26] MEDS ORDERED: VANCOMYCIN 750 MG in IV D5W 250 ML IV SCH
[2025-01-26] MEDS: VANCOMYCIN 1 GM in IV D5W 250 ML IV SCH (00:03)
[2025-01-26 04:45] LABS: BASOPHILS % (AUTO) 0.1 % (0.0-2.0); EOSINOPHILS % (AUTO) 0.5 % (0.0-6.0); HEMATOCRIT 25 % (33-45); HEMOGLOBIN 8.4 g/dL (11.5-14.8); LYMPHOCYTES # (AUTO) 0.3 K/uL (0.8-4.8); LYMPHOCYTES % (AUTO) 5.8 % (20.0-44.0); MEAN CORPUSCULAR HEMOGLOBIN 32 PG (26.0-33.0); MEAN CORPUSCULAR HGB CONC 33 g/dl (31.0-36.0); MEAN CORPUSCULAR VOLUME 95 fL (82-100); MONOCYTES # (AUTO) 0.4 K/uL (0.1-1.30); MONOCYTES % (AUTO) 8.1 % (2.0-12.0); NEUTROPHILS # (AUTO) 3.8 K/uL (1.8-8.9); NEUTROPHILS % (AUTO) 85.5 % (43.0-81.0); PLATELET COUNT (AUTO) 154 K/uL (150-450); RED BLOOD CELL COUNT(AUTO) 2.66 MIL/uL (4.0-5.2); RED CELL DISTRIBUTION WIDTH 16.2 % (11.5-15.0); WHITE BLOOD COUNT (AUTO) 4.5 K/uL (4.3-11.0)
[2025-01-26 04:54] LABS: CREATININE 0.8 mg/dL (0.6-1.3); POTASSIUM 3.8 mmol/L (3.5-5.1)
[2025-01-26 04:55] LABS: PROTHROMBIN TIME 40.1 SECS (9.2-11.1)
[2025-01-26 04:57] LABS: INR 4.15 (0.91-1.10)
[2025-01-26 08:07] LABS: PTH, INTACT 16 pg/mL (15-65)
[2025-01-26] MEDS: IV D5W 1,000 ML IV SCH (09:10)
[2025-01-27] VITALS (26 sets, daily range): BP systolic 84–151; BP diastolic 48–83; TEMP 97.7–98.7; O2SAT 93–100
[2025-01-27 04:39] LABS: CALCIUM, SERUM 9.2 mg/dL (8.5-10.1); CREATININE 0.9 mg/dL (0.6-1.3); POTASSIUM 3.6 mmol/L (3.5-5.1)
[2025-01-27 04:53] LABS: BASOPHILS % (AUTO) 0.1 % (0.0-2.0); EOSINOPHILS # (AUTO) 0.1 K/uL (0.0-0.7); EOSINOPHILS % (AUTO) 1.3 % (0.0-6.0); HEMATOCRIT 27 % (33-45); HEMOGLOBIN 8.9 g/dL (11.5-14.8); LYMPHOCYTES # (AUTO) 0.3 K/uL (0.8-4.8); LYMPHOCYTES % (AUTO) 7.1 % (20.0-44.0); MEAN CORPUSCULAR HEMOGLOBIN 31 PG (26.0-33.0); MEAN CORPUSCULAR HGB CONC 33 g/dl (31.0-36.0); MEAN CORPUSCULAR VOLUME 94 fL (82-100); MONOCYTES # (AUTO) 0.5 K/uL (0.1-1.30); MONOCYTES % (AUTO) 9.5 % (2.0-12.0); PLATELET COUNT (AUTO) 157 K/uL (150-450); RED BLOOD CELL COUNT(AUTO) 2.89 MIL/uL (4.0-5.2); RED CELL DISTRIBUTION WIDTH 16.1 % (11.5-15.0); WHITE BLOOD COUNT (AUTO) 4.8 K/uL (4.3-11.0)
[2025-01-27 04:59] LABS: INR 3.98 (0.91-1.10); PROTHROMBIN TIME 38.5 SECS (9.2-11.1)
[2025-01-27] MEDS: PROSOURCE / PROSTAT (PYXIS) 30 ML UDC PO SCH (09:00)
[2025-01-27] MEDS: ENSURE ENLIVE CHOC 237 ML CAN PO SCH (09:00)
[2025-01-28] VITALS (27 sets, daily range): BP systolic 42–167; BP diastolic 45–77; TEMP 98–98.8; O2SAT 91–100
[2025-01-28 04:45] LABS: CALCIUM, SERUM 9.1 mg/dL (8.5-10.1); CREATININE 0.8 mg/dL (0.6-1.3); INR 3.78 (0.91-1.10); POTASSIUM 3.6 mmol/L (3.5-5.1); PROTHROMBIN TIME 36.7 SECS (9.2-11.1)
[2025-01-28 04:47] LABS: BASOPHILS % (AUTO) 0.1 % (0.0-2.0); EOSINOPHILS # (AUTO) 0.2 K/uL (0.0-0.7); EOSINOPHILS % (AUTO) 5.1 % (0.0-6.0); HEMATOCRIT 26 % (33-45); HEMOGLOBIN 8.9 g/dL (11.5-14.8); LYMPHOCYTES # (AUTO) 0.4 K/uL (0.8-4.8); LYMPHOCYTES % (AUTO) 8.2 % (20.0-44.0); MEAN CORPUSCULAR HEMOGLOBIN 32 PG (26.0-33.0); MEAN CORPUSCULAR HGB CONC 35 g/dl (31.0-36.0); MEAN CORPUSCULAR VOLUME 94 fL (82-100); MONOCYTES # (AUTO) 0.5 K/uL (0.1-1.30); MONOCYTES % (AUTO) 9.6 % (2.0-12.0); NEUTROPHILS # (AUTO) 3.6 K/uL (1.8-8.9); PLATELET COUNT (AUTO) 131 K/uL (150-450); RED BLOOD CELL COUNT(AUTO) 2.76 MIL/uL (4.0-5.2); RED CELL DISTRIBUTION WIDTH 16.1 % (11.5-15.0); WHITE BLOOD COUNT (AUTO) 4.7 K/uL (4.3-11.0)
[2025-01-28] MEDS: PANTOPRAZOLE 40 MG TABLET.DR PO SCH (08:11)
[2025-01-28] MEDS: CEFEPIME 2 GM in IV D5W 100 ML IV SCH (09:00)
[2025-01-28] MEDS: DIGOXIN INJ 0.5 MG/2 ML AMPUL IV SCH (11:16)
[2025-01-29] VITALS (24 sets, daily range): BP systolic 107–147; BP diastolic 37–88; TEMP 97.7–98.3; O2SAT 91–100
[2025-01-29 04:45] LABS: BASOPHILS % (AUTO) 0.1 % (0.0-2.0); EOSINOPHILS # (AUTO) 0.2 K/uL (0.0-0.7); EOSINOPHILS % (AUTO) 2.4 % (0.0-6.0); HEMATOCRIT 26 % (33-45); HEMOGLOBIN 8.5 g/dL (11.5-14.8); LYMPHOCYTES # (AUTO) 0.3 K/uL (0.8-4.8); LYMPHOCYTES % (AUTO) 4.8 % (20.0-44.0); MEAN CORPUSCULAR HEMOGLOBIN 31 PG (26.0-33.0); MEAN CORPUSCULAR HGB CONC 33 g/dl (31.0-36.0); MEAN CORPUSCULAR VOLUME 94 fL (82-100); MONOCYTES # (AUTO) 0.5 K/uL (0.1-1.30); MONOCYTES % (AUTO) 7.4 % (2.0-12.0); NEUTROPHILS # (AUTO) 5.5 K/uL (1.8-8.9); NEUTROPHILS % (AUTO) 85.3 % (43.0-81.0); PLATELET COUNT (AUTO) 128 K/uL (150-450); RED BLOOD CELL COUNT(AUTO) 2.75 MIL/uL (4.0-5.2); RED CELL DISTRIBUTION WIDTH 15.7 % (11.5-15.0); WHITE BLOOD COUNT (AUTO) 6.4 K/uL (4.3-11.0)
[2025-01-29 05:05] LABS: INR 3.23 (0.91-1.10); PROTHROMBIN TIME 31.7 SECS (9.2-11.1)
[2025-01-29 05:09] LABS: CALCIUM, SERUM 9.2 mg/dL (8.5-10.1); CREATININE 0.8 mg/dL (0.6-1.3); POTASSIUM 3.9 mmol/L (3.5-5.1)
[2025-01-30] VITALS (24 sets, daily range): BP systolic 98–147; BP diastolic 42–82; TEMP 97.7–98.8; O2SAT 93–100
[2025-01-30 03:48] LABS: BASOPHILS % (AUTO) 0.2 % (0.0-2.0); EOSINOPHILS # (AUTO) 0.3 K/uL (0.0-0.7); EOSINOPHILS % (AUTO) 3.4 % (0.0-6.0); HEMATOCRIT 29 % (33-45); HEMOGLOBIN 9.5 g/dL (11.5-14.8); LYMPHOCYTES # (AUTO) 0.4 K/uL (0.8-4.8); LYMPHOCYTES % (AUTO) 5.5 % (20.0-44.0); MEAN CORPUSCULAR HEMOGLOBIN 31 PG (26.0-33.0); MEAN CORPUSCULAR HGB CONC 33 g/dl (31.0-36.0); MEAN CORPUSCULAR VOLUME 93 fL (82-100); MONOCYTES # (AUTO) 0.5 K/uL (0.1-1.30); MONOCYTES % (AUTO) 6.5 % (2.0-12.0); NEUTROPHILS # (AUTO) 6.9 K/uL (1.8-8.9); NEUTROPHILS % (AUTO) 84.4 % (43.0-81.0); PLATELET COUNT (AUTO) 152 K/uL (150-450); RED BLOOD CELL COUNT(AUTO) 3.09 MIL/uL (4.0-5.2); RED CELL DISTRIBUTION WIDTH 16.1 % (11.5-15.0); WHITE BLOOD COUNT (AUTO) 8.1 K/uL (4.3-11.0)
[2025-01-30 05:08] LABS: ALBUMIN 2.2 g/dL (3.4-5.0); BILIRUBIN,TOTAL 1.6 mg/dL (0.2-1.0); CALCIUM, SERUM 8.8 mg/dL (8.5-10.1); CREATININE 0.7 mg/dL (0.6-1.3); MAGNESIUM 2.1 mg/dL (1.8-2.4); PHOSPHORUS 1.7 mg/dL (2.5-4.9); POTASSIUM 3.5 mmol/L (3.5-5.1); TOTAL PROTEIN, SERUM 6.1 g/dL (6.4-8.2)
[2025-01-30] MEDS: POTASSIUM CHLORIDE 20 MEQ TAB.PRT.SR PO SCH (10:27)
[2025-01-30] MEDS: FUROSEMIDE 40 MG/4 ML VIAL IV SCH (10:28)
[2025-01-30 10:47] LABS: ABG BASE EXCESS 4.6 mmol/L (-2.0-3.0); ABG OXYGEN SATURATION 92.3 % (94.0-98.0); ABG PCO2 43.3 mmHg (32.0-45.0); ABG PH 7.446 (7.350-7.450); ABG PO2 65.5 mmHg (83.0-108.0); ABG TOTAL HEMOGLOBIN 10.4 G/dL (12.0-16.0); COHb 1.7 % (0.5-1.5); MetHb 0.3 % (0.0-1.5); O2Hb 90.5 % (94.0-97.0); SITE, ABG RIGHT RADIAL
[2025-01-30 12:29] LABS: INR 2.52 (0.91-1.10); PARTIAL THROMBOPLASTIN TIME 40.7 SEC (24.3-34.3); PROTHROMBIN TIME 25.1 SECS (9.2-11.1)
[2025-01-30] MEDS: NA PHOS,M-B/NA PHOS,DI-BA 1 EA ENEMA RC PRN (15:40)
[2025-01-30] MEDS: NEUTRA PHOS 1 POWD.PACKET PO ONE (17:37)
[2025-01-30] MEDS: WARFARIN SODIUM 2 MG TABLET PO SCH (18:44)
[2025-01-31] VITALS (29 sets, daily range): BP systolic 107–155; BP diastolic 37–79; TEMP 97–98.4; O2SAT 89–100
[2025-01-31 05:06] LABS: BASOPHILS % (AUTO) 0.2 % (0.0-2.0); EOSINOPHILS # (AUTO) 0.2 K/uL (0.0-0.7); HEMATOCRIT 29 % (33-45); HEMOGLOBIN 9.6 g/dL (11.5-14.8); LYMPHOCYTES # (AUTO) 0.3 K/uL (0.8-4.8); LYMPHOCYTES % (AUTO) 3.2 % (20.0-44.0); MEAN CORPUSCULAR HEMOGLOBIN 31 PG (26.0-33.0); MEAN CORPUSCULAR HGB CONC 33 g/dl (31.0-36.0); MEAN CORPUSCULAR VOLUME 93 fL (82-100); MONOCYTES # (AUTO) 0.7 K/uL (0.1-1.30); MONOCYTES % (AUTO) 7.2 % (2.0-12.0); NEUTROPHILS % (AUTO) 87.4 % (43.0-81.0); PLATELET COUNT (AUTO) 173 K/uL (150-450); RED BLOOD CELL COUNT(AUTO) 3.12 MIL/uL (4.0-5.2); RED CELL DISTRIBUTION WIDTH 16.2 % (11.5-15.0); WHITE BLOOD COUNT (AUTO) 10.3 K/uL (4.3-11.0)
[2025-01-31 05:12] LABS: INR 2.83 (0.91-1.10)
[2025-01-31 05:42] LABS: ALANINE AMINOTRANSFERASE 23 U/L (12-78); ALBUMIN 2.4 g/dL (3.4-5.0); ALKALINE PHOSPHATASE 89 U/L (46-116); ASPARTATE AMINOTRANSFERASE 40 U/L (15-37); BILIRUBIN,TOTAL 2.1 mg/dL (0.2-1.0); CALCIUM, SERUM 8.5 mg/dL (8.5-10.1); CARBON DIOXIDE 36 mmol/L (21-32); CHLORIDE 98 mmol/L (98-107); GLUCOSE 106 mg/dL (74-106); PHOSPHORUS 1.7 mg/dL (2.5-4.9); POTASSIUM 4.3 mmol/L (3.5-5.1); SODIUM SERUM 134 mmol/L (136-145); TOTAL PROTEIN, SERUM 6.6 g/dL (6.4-8.2); UREA NITROGEN, BLOOD 16 mg/dL (7-18)
[2025-01-31] MEDS: Sodium Phosphate 15 MMOL in IV NS 0.9% 245 ML IV SCH (13:14)
[2025-01-31] MEDS: ACETAMINOPHEN 650 MG/SUPP.RECT RC PRN (15:46)
[2025-01-31] MEDS: IV D5/ 0.9% NACL 1,000 ML IV PRN (17:49)
[2025-01-31 18:36] LABS: CALCIUM, SERUM 8.8 mg/dL (8.5-10.1); CREATININE 1.1 mg/dL (0.6-1.3)
[2025-02-01] VITALS (27 sets, daily range): BP systolic 103–172; BP diastolic 38–87; TEMP 97.4–98.7; O2SAT 93–100
[2025-02-01 06:27] LABS: HEMATOCRIT 26 % (33-45); HEMOGLOBIN 8.8 g/dL (11.5-14.8); MEAN CORPUSCULAR HEMOGLOBIN 32 PG (26.0-33.0); MEAN CORPUSCULAR HGB CONC 34 g/dl (31.0-36.0); MEAN CORPUSCULAR VOLUME 94 fL (82-100); RED BLOOD CELL COUNT(AUTO) 2.79 MIL/uL (4.0-5.2); WHITE BLOOD COUNT (AUTO) 9.2 K/uL (4.3-11.0)
[2025-02-01 06:28] LABS: BASOPHILS % (AUTO) 0.4 % (0.0-2.0); EOSINOPHILS # (AUTO) 0.2 K/uL (0.0-0.7); EOSINOPHILS % (AUTO) 2.2 % (0.0-6.0); LYMPHOCYTES # (AUTO) 0.2 K/uL (0.8-4.8); MONOCYTES # (AUTO) 0.8 K/uL (0.1-1.30); MONOCYTES % (AUTO) 8.7 % (2.0-12.0); NEUTROPHILS % (AUTO) 86.7 % (43.0-81.0); PLATELET COUNT (AUTO) 172 K/uL (150-450); RED CELL DISTRIBUTION WIDTH 16.6 % (11.5-15.0)
[2025-02-01 07:09] LABS: INR 4.05 (0.91-1.10); PROTHROMBIN TIME 39.2 SECS (9.2-11.1)
[2025-02-01 07:43] LABS: CALCIUM, SERUM 8.4 mg/dL (8.5-10.1); CARBON DIOXIDE 30 mmol/L (21-32); CHLORIDE 102 mmol/L (98-107); GLUCOSE 129 mg/dL (74-106); POTASSIUM 3.4 mmol/L (3.5-5.1); SODIUM SERUM 141 mmol/L (136-145)
[2025-02-01 07:44] LABS: MAGNESIUM 2.1 mg/dL (1.8-2.4); PHOSPHORUS 2.4 mg/dL (2.5-4.9)
[2025-02-01 09:35] LABS: UREA NITROGEN, BLOOD 20 mg/dL (7-18)
[2025-02-01] MEDS: POTASSIUM CHLORIDE 20 MEQ TAB.PRT.SR PO SCH (10:00)
[2025-02-01 10:27] LABS: URIC ACID 2.5 mg/dL (2.6-7.2)
[2025-02-01] MEDS: FUROSEMIDE 40 MG/4 ML VIAL IV ONE (14:11)
[2025-02-01] MEDS: K PHOS NEUTRAL 250 MG TABLET PO ONE (16:24)
[2025-02-02] VITALS (26 sets, daily range): BP systolic 84–160; BP diastolic 44–103; TEMP 97–99.3; O2SAT 76–100
[2025-02-02 04:46] LABS: BASOPHILS % (AUTO) 0.2 % (0.0-2.0); EOSINOPHILS # (AUTO) 0.2 K/uL (0.0-0.7); EOSINOPHILS % (AUTO) 1.8 % (0.0-6.0); HEMATOCRIT 26 % (33-45); HEMOGLOBIN 8.3 g/dL (11.5-14.8); LYMPHOCYTES # (AUTO) 0.4 K/uL (0.8-4.8); LYMPHOCYTES % (AUTO) 3.9 % (20.0-44.0); MEAN CORPUSCULAR HEMOGLOBIN 30 PG (26.0-33.0); MEAN CORPUSCULAR HGB CONC 32 g/dl (31.0-36.0); MEAN CORPUSCULAR VOLUME 95 fL (82-100); MONOCYTES # (AUTO) 0.9 K/uL (0.1-1.30); MONOCYTES % (AUTO) 9.4 % (2.0-12.0); NEUTROPHILS # (AUTO) 7.8 K/uL (1.8-8.9); NEUTROPHILS % (AUTO) 84.7 % (43.0-81.0); PLATELET COUNT (AUTO) 181 K/uL (150-450); RED BLOOD CELL COUNT(AUTO) 2.75 MIL/uL (4.0-5.2); RED CELL DISTRIBUTION WIDTH 16.8 % (11.5-15.0); WHITE BLOOD COUNT (AUTO) 9.2 K/uL (4.3-11.0)
[2025-02-02 05:01] LABS: POTASSIUM 2.9 mmol/L (3.5-5.1)
[2025-02-02 05:14] LABS: CALCIUM, SERUM 8.7 mg/dL (8.5-10.1)
[2025-02-02 05:17] LABS: PROTHROMBIN TIME 65.1 SECS (9.2-11.1)
[2025-02-02 05:19] LABS: INR 6.97 (0.91-1.10)
[2025-02-02] MEDS: POTASSIUM CL. PREMIX PERIPHER. 50 ML IV SCH ×2 (05:50→09:27)
[2025-02-02] MEDS ORDERED: POTASSIUM CHLORIDE 20 MEQ TAB.PRT.SR PO SCH (08:00)
[2025-02-02 08:06] LABS: *SPE A/G RATIO 0.9 (0.7-1.7); *SPE ALBUMIN 2.8 g/dL (2.9-4.4); *SPE ALPHA-1-GLOBULIN 0.3 g/dL (0.0-0.4); *SPE ALPHA-2-GLOBULIN 0.4 g/dL (0.4-1.0); *SPE BETA GLOBULIN 0.8 g/dL (0.7-1.3); *SPE GLOBULIN, TOTAL 3.2 g/dL (2.2-3.9); *SPE M-SPIKE Not Observed g/dL (Not Observed); *SPEGAMMA GLOBULIN 1.6 g/dL (0.4-1.8)
[2025-02-02] MEDS: CEFEPIME 2 GM in IV D5W 100 ML IV SCH (09:26)
[2025-02-02 15:11] LABS: CALCIUM, SERUM 7.7 mg/dL (8.5-10.1); CREATININE 1.3 mg/dL (0.6-1.3); POTASSIUM 5.7 mmol/L (3.5-5.1)
[2025-02-02 16:46] LABS: CALCIUM, SERUM 8.9 mg/dL (8.5-10.1); CREATININE 0.9 mg/dL (0.6-1.3); POTASSIUM 4.5 mmol/L (3.5-5.1)
[2025-02-03] VITALS (27 sets, daily range): BP systolic 120–161; BP diastolic 49–79; TEMP 97.2–98; O2SAT 92–100
[2025-02-03 02:40] LABS: URINE SODIUM, RANDOM 56 mmol/l (40-220)
[2025-02-03 04:30] LABS: BASOPHILS % (AUTO) 0.1 % (0.0-2.0); EOSINOPHILS % (AUTO) 0.1 % (0.0-6.0); HEMATOCRIT 25 % (33-45); LYMPHOCYTES # (AUTO) 0.2 K/uL (0.8-4.8); LYMPHOCYTES % (AUTO) 1.6 % (20.0-44.0); MEAN CORPUSCULAR HEMOGLOBIN 31 PG (26.0-33.0); MEAN CORPUSCULAR HGB CONC 32 g/dl (31.0-36.0); MEAN CORPUSCULAR VOLUME 95 fL (82-100); MONOCYTES # (AUTO) 0.7 K/uL (0.1-1.30); MONOCYTES % (AUTO) 6.5 % (2.0-12.0); NEUTROPHILS # (AUTO) 10.5 K/uL (1.8-8.9); NEUTROPHILS % (AUTO) 91.7 % (43.0-81.0); PLATELET COUNT (AUTO) 171 K/uL (150-450); RED BLOOD CELL COUNT(AUTO) 2.63 MIL/uL (4.0-5.2); RED CELL DISTRIBUTION WIDTH 16.6 % (11.5-15.0); WHITE BLOOD COUNT (AUTO) 11.5 K/uL (4.3-11.0)
[2025-02-03 05:00] LABS: ALBUMIN 2.5 g/dL (3.4-5.0); BILIRUBIN,TOTAL 1.6 mg/dL (0.2-1.0); CALCIUM, SERUM 9.2 mg/dL (8.5-10.1); MAGNESIUM 2.3 mg/dL (1.8-2.4); PHOSPHORUS 2.2 mg/dL (2.5-4.9); POTASSIUM 4.4 mmol/L (3.5-5.1); TOTAL PROTEIN, SERUM 6.7 g/dL (6.4-8.2)
[2025-02-03 05:12] LABS: PROTHROMBIN TIME 65.5 SECS (9.2-11.1)
[2025-02-03 05:16] LABS: INR 7.02 (0.91-1.10)
[2025-02-03] MEDS: IV D5W 1,000 ML IV SCH (08:30)
[2025-02-03] MEDS: FUROSEMIDE 40 MG/4 ML VIAL IV ONE (14:11)
[2025-02-03] MEDS: Sodium Phosphate 15 MMOL in IV NS 0.9% 245 ML IV SCH (17:34)
[2025-02-04] VITALS (24 sets, daily range): BP systolic 92–146; BP diastolic 34–70; TEMP 97.9–98.4; O2SAT 87–100
[2025-02-04 04:49] LABS: BASOPHILS # (AUTO) 0.1 K/uL (0.0-0.2); BASOPHILS % (AUTO) 0.6 % (0.0-2.0); HEMATOCRIT 27 % (33-45); HEMOGLOBIN 8.7 g/dL (11.5-14.8); LYMPHOCYTES # (AUTO) 0.2 K/uL (0.8-4.8); LYMPHOCYTES % (AUTO) 1.6 % (20.0-44.0); MEAN CORPUSCULAR HEMOGLOBIN 30 PG (26.0-33.0); MEAN CORPUSCULAR HGB CONC 32 g/dl (31.0-36.0); MEAN CORPUSCULAR VOLUME 95 fL (82-100); MONOCYTES # (AUTO) 0.7 K/uL (0.1-1.30); MONOCYTES % (AUTO) 4.8 % (2.0-12.0); NEUTROPHILS # (AUTO) 13.2 K/uL (1.8-8.9); PLATELET COUNT (AUTO) 196 K/uL (150-450); RED BLOOD CELL COUNT(AUTO) 2.85 MIL/uL (4.0-5.2); RED CELL DISTRIBUTION WIDTH 17.3 % (11.5-15.0); WHITE BLOOD COUNT (AUTO) 14.2 K/uL (4.3-11.0)
[2025-02-04 05:17] LABS: ALBUMIN 2.4 g/dL (3.4-5.0); BILIRUBIN,TOTAL 2.2 mg/dL (0.2-1.0); CALCIUM, SERUM 9.5 mg/dL (8.5-10.1); CREATININE 1.4 mg/dL (0.6-1.3); MAGNESIUM 2.3 mg/dL (1.8-2.4); PHOSPHORUS 2.5 mg/dL (2.5-4.9); POTASSIUM 3.5 mmol/L (3.5-5.1); TOTAL PROTEIN, SERUM 6.8 g/dL (6.4-8.2)
[2025-02-04] MEDS: DILTIAZEM HCL CD 240 MG PO SCH (08:58)
[2025-02-04 11:23] LABS: ABG BASE EXCESS 5.7 mmol/L (-2.0-3.0); ABG OXYGEN SATURATION 94.3 % (94.0-98.0); ABG PCO2 45.5 mmHg (32.0-45.0); ABG PH 7.443 (7.350-7.450); ABG PO2 75.6 mmHg (83.0-108.0); ABG TOTAL HEMOGLOBIN 9.6 G/dL (12.0-16.0); MetHb 0.3 % (0.0-1.5); O2Hb 93.1 % (94.0-97.0); SITE, ABG LEFT RADIAL
[2025-02-04] MEDS: DIGOXIN INJ 0.5 MG/2 ML AMPUL IV SCH (12:03)
[2025-02-04 12:17] LABS: OSMOLALITY,URINE 394 mOS/kg (340-1090)
[2025-02-04] MEDS: PHYTONADIONE INJ 10 MG/1 ML AMPUL SQ ONE (14:11)
[2025-02-04 15:05] LABS: CALCIUM, SERUM 9.3 mg/dL (8.5-10.1); CREATININE 1.4 mg/dL (0.6-1.3); POTASSIUM 3.3 mmol/L (3.5-5.1)
[2025-02-04] MEDS: MEROPENEM 500 MG in IV NS 0.9% 50 ML IV SCH (20:25)
[2025-02-04] MEDS: MEROPENEM 500MG/NS 50 ML PB IV ONE (20:43)
[2025-02-04] MEDS: VANCOMYCIN 1 GM /D5W 250 ML PB IV ONE (20:43)
[2025-02-04] MEDS: VANCOMYCIN 1 GM in IV D5W 250 ML IV ONE (21:00)
[2025-02-04] MEDS ORDERED: MEROPENEM 500 MG in IV NS 0.9% 50 ML IV SCH (21:00)
[2025-02-05] VITALS (24 sets, daily range): BP systolic 112–144; BP diastolic 40–65; TEMP 97.4–98.3; O2SAT 55–100
[2025-02-05] MEDS: MEROPENEM 500MG/NS 50 ML PB IV ONE (04:51)
[2025-02-05 04:57] LABS: CALCIUM, SERUM 9.5 mg/dL (8.5-10.1); CREATININE 1.2 mg/dL (0.6-1.3); POTASSIUM 3.3 mmol/L (3.5-5.1)
[2025-02-05 04:58] LABS: PROTHROMBIN TIME 79.1 SECS (9.2-11.1)
[2025-02-05 05:25] LABS: INR 8.59 (0.91-1.10)
[2025-02-05 07:39] LABS: APPEARANCE,URINE CLEAR (CLEAR); BILIRUBIN,URINE NEGATIVE (NEGATIVE); BLOOD, URINE 3+ Ery/uL (NEGATIVE); COLOR,URINE YELLOW (YELLOW); KETONES,URINE TRACE mg/dL (NEGATIVE); LEUKOCYTE ESTERASE ,URINE NEGATIVE (NEGATIVE); NITRITE, URINE NEGATIVE (NEGATIVE); PROTEIN,URINE 2+ mg/dl (NEGATIVE); UGLUCOSE NEGATIVE (NEGATIVE); UROBILINOGEN,URINE 0.2 EU/dL (0.2)
[2025-02-05 07:59] LABS: ADD URINE CULTURE NO; BACTERIA,URINE Few /HPF (None Seen); FINE GRANULAR CASTS,URINE Few /LPF (None Seen)
[2025-02-05 08:01] LABS: CREATININE, URINE 67.7 MG/DL (30.0-125.0); URINE TOTAL PROTEIN 209.5 mg/dL (0-11.9)
[2025-02-05] MEDS: FUROSEMIDE 100 MG/10 ML VIAL IV SCH (08:13)
[2025-02-05] MEDS: POTASSIUM CL. PREMIX PERIPHER. 50 ML IV SCH (08:14)
[2025-02-05 08:35] LABS: ABG BASE EXCESS 4.9 mmol/L (-2.0-3.0); ABG OXYGEN SATURATION 97.6 % (94.0-98.0); ABG PCO2 53.1 mmHg (32.0-45.0); ABG PH 7.381 (7.350-7.450); ABG PO2 104.9 mmHg (83.0-108.0); ABG TOTAL HEMOGLOBIN 9.3 G/dL (12.0-16.0); COHb 1.2 % (0.5-1.5); MetHb 0.3 % (0.0-1.5); O2Hb 96.1 % (94.0-97.0); SITE, ABG LEFT RADIAL
[2025-02-05 10:15] LABS: EOSINOPHIL,URINE None Seen
[2025-02-05] MEDS: MEROPENEM 500 MG in IV NS 0.9% 50 ML IV SCH (16:31)
[2025-02-05] MEDS: IV NS 0.9% 250 ML IV PRN (20:01)
[2025-02-05] MEDS: VANCOMYCIN 750 MG in IV D5W 250 ML IV SCH (20:30)
[2025-02-06] VITALS (27 sets, daily range): BP systolic 106–152; BP diastolic 34–80; TEMP 97.7–98.3; O2SAT 99–100
[2025-02-06 04:18] LABS: BASOPHILS % (AUTO) 0.2 % (0.0-2.0); EOSINOPHILS # (AUTO) 0.1 K/uL (0.0-0.7); EOSINOPHILS % (AUTO) 0.8 % (0.0-6.0); HEMATOCRIT 27 % (33-45); HEMOGLOBIN 8.8 g/dL (11.5-14.8); LYMPHOCYTES # (AUTO) 0.1 K/uL (0.8-4.8); LYMPHOCYTES % (AUTO) 1.4 % (20.0-44.0); MEAN CORPUSCULAR HEMOGLOBIN 31 PG (26.0-33.0); MEAN CORPUSCULAR HGB CONC 33 g/dl (31.0-36.0); MEAN CORPUSCULAR VOLUME 95 fL (82-100); MONOCYTES # (AUTO) 0.3 K/uL (0.1-1.30); MONOCYTES % (AUTO) 2.4 % (2.0-12.0); NEUTROPHILS # (AUTO) 10.1 K/uL (1.8-8.9); NEUTROPHILS % (AUTO) 95.2 % (43.0-81.0); PLATELET COUNT (AUTO) 174 K/uL (150-450); RED BLOOD CELL COUNT(AUTO) 2.83 MIL/uL (4.0-5.2); RED CELL DISTRIBUTION WIDTH 16.6 % (11.5-15.0); WHITE BLOOD COUNT (AUTO) 10.6 K/uL (4.3-11.0)
[2025-02-06 04:43] LABS: BILIRUBIN,TOTAL 1.9 mg/dL (0.2-1.0); CALCIUM, SERUM 8.9 mg/dL (8.5-10.1); CREATININE 1.1 mg/dL (0.6-1.3); MAGNESIUM 1.9 mg/dL (1.8-2.4); PHOSPHORUS 2.5 mg/dL (2.5-4.9); POTASSIUM 3.2 mmol/L (3.5-5.1); TOTAL PROTEIN, SERUM 6.2 g/dL (6.4-8.2)
[2025-02-06] MEDS: POTASSIUM CL. PREMIX PERIPHER. 50 ML IV SCH (08:41)
[2025-02-06] MEDS: diphenhydrAMINE HCL 50 MG/ML VIAL IV ONE (10:30)
[2025-02-06 17:14] LABS: D-DIMER 0.89 mg/L(FEU (0.17-0.50); INR 1.69 (0.91-1.10); PROTHROMBIN TIME 17.3 SECS (9.2-11.1)
[2025-02-06 17:49] LABS: THYROID STIMULATING HORMONE 0.1 uIU/mL (0.358-3.74)
[2025-02-07] VITALS (42 sets, daily range): BP systolic 122–164; BP diastolic 29–75; TEMP 98–98.4; O2SAT 97–100
[2025-02-07 03:49] LABS: CALCIUM, SERUM 9.9 mg/dL (8.5-10.1); CREATININE 1.3 mg/dL (0.6-1.3); POTASSIUM 4.2 mmol/L (3.5-5.1)
[2025-02-07 03:55] LABS: D-DIMER 0.83 mg/L(FEU (0.17-0.50); INR 1.53 (0.91-1.10); PARTIAL THROMBOPLASTIN TIME 31.5 SEC (24.3-34.3); PROTHROMBIN TIME 15.8 SECS (9.2-11.1)
[2025-02-07] MEDS: IV D5/ 0.9% NACL 1,000 ML IV SCH (11:40)
[2025-02-07 15:13] LABS: BASOPHILS % (AUTO) 0.1 % (0.0-2.0); EOSINOPHILS % (AUTO) 0.5 % (0.0-6.0); HEMATOCRIT 26 % (33-45); HEMOGLOBIN 8.4 g/dL (11.5-14.8); LYMPHOCYTES # (AUTO) 0.2 K/uL (0.8-4.8); LYMPHOCYTES % (AUTO) 2.5 % (20.0-44.0); MEAN CORPUSCULAR HEMOGLOBIN 31 PG (26.0-33.0); MEAN CORPUSCULAR HGB CONC 32 g/dl (31.0-36.0); MEAN CORPUSCULAR VOLUME 95 fL (82-100); MONOCYTES # (AUTO) 0.3 K/uL (0.1-1.30); MONOCYTES % (AUTO) 3.3 % (2.0-12.0); NEUTROPHILS # (AUTO) 8.4 K/uL (1.8-8.9); NEUTROPHILS % (AUTO) 93.6 % (43.0-81.0); PLATELET COUNT (AUTO) 157 K/uL (150-450); RED BLOOD CELL COUNT(AUTO) 2.76 MIL/uL (4.0-5.2); RED CELL DISTRIBUTION WIDTH 16.6 % (11.5-15.0)
[2025-02-07] MEDS: HEPARIN INFUSION/D5W 500 ML IV PRN (23:59)
[2025-02-08] VITALS (24 sets, daily range): BP systolic 127–150; BP diastolic 37–66; TEMP 97.5–98.8; O2SAT 97–100
[2025-02-08 04:22] LABS: BASOPHILS % (AUTO) 0.1 % (0.0-2.0); EOSINOPHILS # (AUTO) 0.1 K/uL (0.0-0.7); EOSINOPHILS % (AUTO) 0.8 % (0.0-6.0); HEMATOCRIT 25 % (33-45); HEMOGLOBIN 8.1 g/dL (11.5-14.8); LYMPHOCYTES # (AUTO) 0.2 K/uL (0.8-4.8); LYMPHOCYTES % (AUTO) 2.2 % (20.0-44.0); MEAN CORPUSCULAR HEMOGLOBIN 31 PG (26.0-33.0); MEAN CORPUSCULAR HGB CONC 33 g/dl (31.0-36.0); MEAN CORPUSCULAR VOLUME 95 fL (82-100); MONOCYTES # (AUTO) 0.4 K/uL (0.1-1.30); MONOCYTES % (AUTO) 4.6 % (2.0-12.0); NEUTROPHILS # (AUTO) 7.6 K/uL (1.8-8.9); NEUTROPHILS % (AUTO) 92.3 % (43.0-81.0); PLATELET COUNT (AUTO) 139 K/uL (150-450); RED CELL DISTRIBUTION WIDTH 16.7 % (11.5-15.0); WHITE BLOOD COUNT (AUTO) 8.3 K/uL (4.3-11.0)
[2025-02-08 04:33] LABS: BILIRUBIN,TOTAL 1.6 mg/dL (0.2-1.0); CALCIUM, SERUM 9.8 mg/dL (8.5-10.1); CREATININE 1.1 mg/dL (0.6-1.3); MAGNESIUM 2.2 mg/dL (1.8-2.4); PHOSPHORUS 2.2 mg/dL (2.5-4.9); POTASSIUM 3.7 mmol/L (3.5-5.1)
[2025-02-08 06:58] LABS: D-DIMER 1.4 mg/L(FEU (0.17-0.50); INR 1.43 (0.91-1.10); PARTIAL THROMBOPLASTIN TIME 45.3 SEC (24.3-34.3); PROTHROMBIN TIME 14.8 SECS (9.2-11.1)
[2025-02-08 07:11] LABS: FOLIC ACID 10.1 ng/mL (>3.0)
[2025-02-08] MEDS ORDERED: TPN/PPN PER PHARMACY IV PRN (08:00)
[2025-02-08 08:12] LABS: IMMUNOGLOBULIN A, SERUM 294 mg/dL (64-422); IMMUNOGLOBULIN G, SERUM 1532 mg/dL (586-1602); IMMUNOGLOBULIN M, SERUM 115 mg/dL (26-217)
[2025-02-08] MEDS: ENOXAPARIN SODIUM 40 MG/0.4 ML DISP.SYRIN SQ SCH (08:33)
[2025-02-08] MEDS ORDERED: DEXTROSE 50%-WATER 50 ML DISP.SYRIN IV PRN (11:00)
[2025-02-08] MEDS: BLOOD SUGAR DIAGNOSTIC 1 EACH STRIP IN SCH (13:42)
[2025-02-08] MEDS: INSULIN REGULAR, HUMAN 100 UNIT/ML 3 ML VIAL SQ PRN (14:27)
[2025-02-08] MEDS: VANCOMYCIN 500 MG in IV D5W 100ml IV SCH (14:42)
[2025-02-08] MEDS: IV D5/ 0.9% NACL 1,000 ML IV SCH (14:43)
[2025-02-08 15:07] LABS: FREE KAPPA LT CHAINS SERUM 65.4 mg/L (3.3-19.4); FREE LAMBDA LT CHAIN SERUM 61.2 mg/L (5.7-26.3); KAPPA/LAMBDA RATIO SERUM 1.07 (0.26-1.65)
[2025-02-08] MEDS: [UNRECOGNIZED DRUG - NUTRITION] IV SCH (15:11)
[2025-02-08] MEDS ORDERED: ENOXAPARIN SODIUM 30 MG/0.3 ML DISP.SYRIN SQ SCH (16:30)
[2025-02-09] VITALS (24 sets, daily range): BP systolic 124–168; BP diastolic 40–61; TEMP 97.3–97.8; O2SAT 93–100
[2025-02-09 04:47] LABS: BASOPHILS % (AUTO) 0.1 % (0.0-2.0); EOSINOPHILS # (AUTO) 0.2 K/uL (0.0-0.7); EOSINOPHILS % (AUTO) 3.2 % (0.0-6.0); HEMATOCRIT 24 % (33-45); HEMOGLOBIN 7.6 g/dL (11.5-14.8); LYMPHOCYTES # (AUTO) 0.3 K/uL (0.8-4.8); LYMPHOCYTES % (AUTO) 3.5 % (20.0-44.0); MEAN CORPUSCULAR HEMOGLOBIN 31 PG (26.0-33.0); MEAN CORPUSCULAR HGB CONC 32 g/dl (31.0-36.0); MEAN CORPUSCULAR VOLUME 97 fL (82-100); MONOCYTES # (AUTO) 0.3 K/uL (0.1-1.30); MONOCYTES % (AUTO) 4.7 % (2.0-12.0); NEUTROPHILS # (AUTO) 6.4 K/uL (1.8-8.9); NEUTROPHILS % (AUTO) 88.5 % (43.0-81.0); PLATELET COUNT (AUTO) 107 K/uL (150-450); RED BLOOD CELL COUNT(AUTO) 2.46 MIL/uL (4.0-5.2); RED CELL DISTRIBUTION WIDTH 16.8 % (11.5-15.0); WHITE BLOOD COUNT (AUTO) 7.2 K/uL (4.3-11.0)
[2025-02-09 04:52] LABS: CALCIUM, SERUM 9.7 mg/dL (8.5-10.1); CREATININE 0.9 mg/dL (0.6-1.3); MAGNESIUM 2.1 mg/dL (1.8-2.4); PHOSPHORUS 1.9 mg/dL (2.5-4.9); POTASSIUM 3.4 mmol/L (3.5-5.1)
[2025-02-09 05:00] LABS: D-DIMER 3.11 mg/L(FEU (0.17-0.50); INR 1.57 (0.91-1.10); PARTIAL THROMBOPLASTIN TIME 29.3 SEC (24.3-34.3); PROTHROMBIN TIME 16.2 SECS (9.2-11.1)
[2025-02-09] MEDS: ENOXAPARIN SODIUM 40 MG/0.4 ML DISP.SYRIN SQ SCH (09:43)
[2025-02-09] MEDS: POTASSIUM PHOSPHATE MM 7.5 MMOL in IV NS 0.9% 100 ML IV SCH (09:44)
[2025-02-09] MEDS: PANTOPRAZOLE 40 MG VIAL IV SCH (09:57)
[2025-02-09 15:28] LABS: HEMOGLOBIN 7.7 g/dL (11.5-14.8)
[2025-02-09] MEDS: TPN BAG #2 IV SCH (15:56)
[2025-02-09] MEDS: IV D5/ 0.9% NACL 1,000 ML IV PRN (19:57)
[2025-02-10] VITALS (24 sets, daily range): BP systolic 126–164; BP diastolic 34–63; TEMP 97–98.3; O2SAT 93–98
[2025-02-10 04:39] LABS: BASOPHILS # (AUTO) 0.1 K/uL (0.0-0.2); BASOPHILS % (AUTO) 0.5 % (0.0-2.0); EOSINOPHILS # (AUTO) 0.1 K/uL (0.0-0.7); EOSINOPHILS % (AUTO) 1.4 % (0.0-6.0); HEMATOCRIT 24 % (33-45); HEMOGLOBIN 7.7 g/dL (11.5-14.8); LYMPHOCYTES # (AUTO) 0.2 K/uL (0.8-4.8); LYMPHOCYTES % (AUTO) 1.8 % (20.0-44.0); MEAN CORPUSCULAR HEMOGLOBIN 31 PG (26.0-33.0); MEAN CORPUSCULAR HGB CONC 32 g/dl (31.0-36.0); MEAN CORPUSCULAR VOLUME 97 fL (82-100); MONOCYTES # (AUTO) 0.4 K/uL (0.1-1.30); MONOCYTES % (AUTO) 3.8 % (2.0-12.0); NEUTROPHILS % (AUTO) 92.5 % (43.0-81.0); PLATELET COUNT (AUTO) 99 K/uL (150-450); RED BLOOD CELL COUNT(AUTO) 2.51 MIL/uL (4.0-5.2); WHITE BLOOD COUNT (AUTO) 9.7 K/uL (4.3-11.0)
[2025-02-10 04:47] LABS: CALCIUM, SERUM 9.2 mg/dL (8.5-10.1); CREATININE 0.9 mg/dL (0.6-1.3); MAGNESIUM 1.8 mg/dL (1.8-2.4); PHOSPHORUS 1.9 mg/dL (2.5-4.9); POTASSIUM 3.7 mmol/L (3.5-5.1)
[2025-02-10 04:56] LABS: D-DIMER 3.99 mg/L(FEU (0.17-0.50); INR 1.64 (0.91-1.10); PARTIAL THROMBOPLASTIN TIME 30.8 SEC (24.3-34.3); PROTHROMBIN TIME 16.8 SECS (9.2-11.1)
[2025-02-10] MEDS: TPN BAG #3 IV SCH (08:18)
[2025-02-10] MEDS: POTASSIUM PHOSPHATE MM 7.5 MMOL in IV NS 0.9% 100 ML IV SCH (10:07)
[2025-02-10] MEDS: TPN #4 IV SCH (22:45)
[2025-02-11] VITALS (15 sets, daily range): BP systolic 98–168; BP diastolic 33–135; TEMP 97–97.8; O2SAT 78–100
[2025-02-11 04:16] LABS: EOSINOPHILS % (AUTO) 0.2 % (0.0-6.0); HEMATOCRIT 25 % (33-45); HEMOGLOBIN 7.7 g/dL (11.5-14.8); LYMPHOCYTES # (AUTO) 0.1 K/uL (0.8-4.8); LYMPHOCYTES % (AUTO) 0.8 % (20.0-44.0); MEAN CORPUSCULAR HEMOGLOBIN 30 PG (26.0-33.0); MEAN CORPUSCULAR HGB CONC 31 g/dl (31.0-36.0); MEAN CORPUSCULAR VOLUME 96 fL (82-100); MONOCYTES # (AUTO) 0.4 K/uL (0.1-1.30); MONOCYTES % (AUTO) 3.4 % (2.0-12.0); NEUTROPHILS # (AUTO) 11.3 K/uL (1.8-8.9); NEUTROPHILS % (AUTO) 95.6 % (43.0-81.0); PLATELET COUNT (AUTO) 110 K/uL (150-450); RED BLOOD CELL COUNT(AUTO) 2.61 MIL/uL (4.0-5.2); RED CELL DISTRIBUTION WIDTH 17.4 % (11.5-15.0); WHITE BLOOD COUNT (AUTO) 11.8 K/uL (4.3-11.0)
[2025-02-11 05:22] LABS: CALCIUM, SERUM 8.8 mg/dL (8.5-10.1); CREATININE 0.9 mg/dL (0.6-1.3); MAGNESIUM 1.6 mg/dL (1.8-2.4); PHOSPHORUS 2.4 mg/dL (2.5-4.9); POTASSIUM 3.8 mmol/L (3.5-5.1)
[2025-02-11] MEDS ORDERED: TPN #6 IV SCH (10:30)
[2025-02-11] MEDS: Magnesium 1GM/D5W 100ML PREMIX 100 ML IV SCH (11:00)
[2025-02-11] MEDS ORDERED: POTASSIUM PHOSPHATE MM 15 MMOL in IV NS 0.9% 250 ML IV SCH (12:00)
[2025-02-11] MEDS ORDERED: TPN #5 IV SCH (12:55)
[2025-02-12] MEDS ORDERED: TPN #6 IV SCH (03:14)
[2025-02-13 06:11] LABS: *SPE A/G RATIO 0.8 (0.7-1.7); *SPE ALBUMIN 2.7 g/dL (2.9-4.4); *SPE ALPHA-1-GLOBULIN 0.4 g/dL (0.0-0.4); *SPE ALPHA-2-GLOBULIN 0.5 g/dL (0.4-1.0); *SPE BETA GLOBULIN 0.8 g/dL (0.7-1.3); *SPE GLOBULIN, TOTAL 3.3 g/dL (2.2-3.9); *SPE M-SPIKE Not Observed g/dL (Not Observed); *SPEGAMMA GLOBULIN 1.6 g/dL (0.4-1.8)
== END 2025-02-11 12:12 | DRG 177 ==
LOC: ER 11:00 → ICU 13:50
PROVIDERS: ADMIT Nurse Practitioner Acute Care; ATTEND Internal Medicine
PROC: 5A09557 Assistance with Respiratory Ventilation, Greater than 96 Consecutive Hours, Continuous Positive Airway Pressure (ICD-10-PCS; principal; 2025-01-23)
PROC: 5A09557 Assistance with Respiratory Ventilation, Greater than 96 Consecutive Hours, Continuous Positive Airway Pressure (ICD-10-PCS; 2025-01-25)
PROC: 05HB33Z Insertion of Infusion Device into Right Basilic Vein, Percutaneous Approach (ICD-10-PCS; 2025-01-29)
PROC: 02HV33Z Insertion of Infusion Device into Superior Vena Cava, Percutaneous Approach (ICD-10-PCS; 2025-02-07)
PROC: B548ZZA Ultrasonography of Superior Vena Cava, Guidance (ICD-10-PCS; 2025-02-07)
DX: J15.69 Pneumonia due to other Gram-negative bacteria (principal); E43 Unspecified severe protein-calorie malnutrition; I50.33 Acute on chronic diastolic (congestive) heart failure; J96.21 Acute and chronic respiratory failure with hypoxia; J96.22 Acute and chronic respiratory failure with hypercapnia; N17.0 Acute kidney failure with tubular necrosis; G92.8 Other toxic encephalopathy; I13.0 Hypertensive heart and chronic kidney disease with heart failure and stage 1 through stage 4 chronic kidney disease, or unspecified chronic kidney disease; I48.20 Chronic atrial fibrillation, unspecified; K86.1 Other chronic pancreatitis; Z68.1 Body mass index [BMI] 19.9 or less, adult; D68.59 Other primary thrombophilia; J90 Pleural effusion, not elsewhere classified; R64 Cachexia; D68.32 Hemorrhagic disorder due to extrinsic circulating anticoagulants; E87.20 Acidosis, unspecified; E87.0 Hyperosmolality and hypernatremia; E87.1 Hypo-osmolality and hyponatremia; J69.0 Pneumonitis due to inhalation of food and vomit; N18.9 Chronic kidney disease, unspecified; Z66 Do not resuscitate; Z51.5 Encounter for palliative care; E78.00 Pure hypercholesterolemia, unspecified; K21.9 Gastro-esophageal reflux disease without esophagitis; M81.0 Age-related osteoporosis without current pathological fracture; Z95.2 Presence of prosthetic heart valve; Z95.0 Presence of cardiac pacemaker; Z90.49 Acquired absence of other specified parts of digestive tract; Z98.891 History of uterine scar from previous surgery; Z79.51 Long term (current) use of inhaled steroids; Z79.01 Long term (current) use of anticoagulants; R13.12 Dysphagia, oropharyngeal phase; M89.8X9 Other specified disorders of bone, unspecified site; I27.20 Pulmonary hypertension, unspecified; D63.8 Anemia in other chronic diseases classified elsewhere; K74.60 Unspecified cirrhosis of liver; R62.7 Adult failure to thrive; Z74.09 Other reduced mobility; M19.90 Unspecified osteoarthritis, unspecified site; Z87.19 Personal history of other diseases of the digestive system; F09 Unspecified mental disorder due to known physiological condition; Z79.899 Other long term (current) drug therapy; T45.515A Adverse effect of anticoagulants, initial encounter; Y92.9 Unspecified place or not applicable; E87.5 Hyperkalemia; E86.9 Volume depletion, unspecified; I05.0 Rheumatic mitral stenosis; N28.1 Cyst of kidney, acquired; N27.1 Small kidney, bilateral; Z86.73 Personal history of transient ischemic attack (TIA), and cerebral infarction without residual deficits; Y95 Nosocomial condition; E83.39 Other disorders of phosphorus metabolism; E83.41 Hypermagnesemia; E83.42 Hypomagnesemia; E87.6 Hypokalemia
CPT/HCPCS: 36410; 36415; 36569; 71045-TC; 76770-TC; 80048-TC; 80053-TC; 80076-TC; 80202-TC; 81001; 82140-TC; 82550-TC; 82570-TC; 82607-TC; 82728-TC; 82784; 82803-TC; 82962-TC; 83540-TC; 83605-TC; 83735-TC; 83880; 83935-TC; 83970; 84100-TC; 84155; 84165; 84300-TC; 84443-TC; 84478-TC; 84484-TC; 84550-TC; 85025-TC; 85027-TC; 85396; 85610-TC; 85730-TC; 86334; 86850-TC; 87040-TC; 87081-TC; 87086-TC; 92526; 92611-TC; 94760-TC; 94762-TC; 94799-TC; A4217; A4223; A4624; A9563; G0378; J0612; J0692; J1160; J1644; J1650; J1815; J1938; J2185; J2470; J2765; J3370; J3371; J3430; J3480; J3490; J7030; J7042; J7050; J7060; J7070